=== PATIENT | female | born 1940 | race Caucasian/White ===

== ENCOUNTER 2021-04-29 12:00 | Emergency (ER) | payer MEDICARE, OTHER, SELFPAY ==
[2021-04-29] VITALS (13 sets, daily range): BP systolic 187–198; BP diastolic 69–75; PULSE 60–70; RESP 13–21; TEMP 37.2; O2SAT 90–94
--- NOTE | ~2021-04-29 | XR_ITS ---
XR chest 2V 04/29/2021 13:09 Indication: Generalized weakness. Procedure: AP and lateral views of the chest Comparison: No prior studies for comparison. Findings: There is bibasilar airspace disease. Borderline heart size. No edema or pneumothorax. No ac tangirnaq osseous abnormality. Impression: 1: Bibasilar airspace disease may represent atelectasis or developing pneumonia. Reviewed, dictated and finalized at location A. Impression: 1: Bibasilar airspace disease may represent atelectasis or developing pneumonia .
--- NOTE | 2021-04-29 12:27 | PC.NURSE ---
pt up to bedside commode. pt daughter at bedside adamant that pt able to sit up for meals and toileting per eye surgeon.
--- NOTE | 2021-04-29 12:40 | ED.WEAKNESS ---
HPI - Weakness General Chief complaint: Weakness Stated complaint: multiple c/o Time Seen by Provider: 04/29/21 12:05 History of Present Illness HPI Narrative: Patient presents with weakness so she had a procedure done 2 days ago has not been taking any of her meds due to surgery. Reports she has been feeling weak since last night. She just does not have energy. Patient also reports she has eye pain but that has been present since her surgery. She reports she is not had much of an appetite over the past couple days denies fevers. She does report she has been peeing more frequently but denies pain with urination. She denies any nausea or vomiting she does reports diminished appetite. She denies any diarrhea. Denies any focal areas of pain other than her eye. Related Data Home Medications Medication Instructions Recorded Confirmed aspirin 81 mg tablet,delayed 81 mg PO DAILY 01/13/21 01/13/21 release atorvastatin 40 mg tablet 40 mg PO DAILY 01/13/21 01/13/21 diclofenac sodium 75 mg 75 mg PO BID 01/13/21 01/13/21 tablet,delayed release losartan 100 mg tablet 100 mg PO DAILY 01/13/21 01/13/21 omeprazole 20 mg tablet,delayed 20 mg PO DAILY 01/13/21 01/13/21 release sertraline 100 mg tablet 100 mg PO DAILY 01/13/21 01/13/21 sitagliptin 100 mg tablet 100 mg PO DAILY 01/13/21 01/13/21 Allergies Allergy/AdvReac Type Severity Reaction Status Date / Time Sulfa (Sulfonamide Allergy Unknown Unknown Verified 04/29/21 12:14 Antibiotics) sulfanilamide Allergy Unknown Unknown Verified 04/29/21 12:14 Review of Systems Review of Systems: CONSTITUTIONAL: Denies fever, chills, or sweats. EYES: Denies visual changes, redness, or discharge. ENT: Denies rhinorrhea, congestion, sore throat, or otalgia. CARDIOVASCULAR: Denies chest pain, palpitations, or edema. RESPIRATORY: Denies cough or dyspnea. GASTROINTESTINAL: Denies abdominal pain, nausea, vomiting, or diarrhea. GENITOURINARY: Denies dysuria or hematuria. SKIN: Denies rash or itching. MUSCULOSKELETAL: Denies back pain, joint pain, or myalgia. NEUROLOGIC: Denies headache, numbness, dizziness, or focal weakness. PSYCHIATRIC: Denies anxiety or depression. 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 Primary osteoarthritis, unspecified site Family History Family History Father Family history of malignant neoplasm of stomach Family history of diabetes mellitus in first degree relative Mother Family history of malignant neoplasm of ovary Social History Social History Smoking status: Former smoker Tobacco type: cigarettes Second hand tobacco smoke exposure: No Alcohol intake: never Substance use: never Substance use type: does not use Gender identity (if verbalized by the patient): Female Sexual Orientation (if Verbalized by the Patient): Straight or Heterosexual Exam Narrative: GENERAL: Well-appearing, well-nourished, and in no acute distress. HEAD: Normocephalic, atraumatic. EYES: PERRLA and EOMI. ENT: Nares clear, no rhinorrhea or epistaxis. Mucous membranes moist. NECK: Supple. No masses. No JVD ABDOMEN: mild diffuse tenderness, Soft, nondistended. EXTREMITIES: Normal range of motion. No edema. SKIN: Warm, dry, no rash. NEURO: No focal deficits. Alert and oriented x3. PSYCH: Normal mood and affect. Course Reevaluation(s) Reevaluation #1: Patient resting comfortably results and plan reviewed with patient and family. Patient family comfortable with outpatient plan. Date: 04/29/21 Time: 15:51 Vital Signs Vital signs: Vital Signs Temperature
[2021-04-29] MEDS: SODIUM CHLORIDE 0.9% IV 1,000 ML 999 ML IV CONT (12:43)
[2021-04-29] MEDS: ONDANSETRON INJ 4 MG/2 ML VIAL IV PUSH (12:44)
[2021-04-29 13:06] LABS: Basophils Percent Auto 0.3 % (0.2-1.2); Eosinophils Percent Auto 0.1 % (0-4.4); Hematocrit 39.7 % (37.0-47.0); Hemoglobin 13.5 g/dL (12.0-15.0); Immature Granulocyte Absolute 0.07 K/mm3 (0.00-0.031); Immature Granulocyte Percent A 0.6 % (0-0.5); Lymphocytes Absolute Auto 0.66 K/mm3 (0.9-3.2); Lymphocytes Percent Auto 5.6 % (18.3-44.2); Mean Corpuscular Hemoglobin 30.6 pg (26-34); Mean Platelet Volume 10.3 fl (7.4-10.4); Monocytes Absolute Auto 0.4 K/mm3 (0.1-0.6); Monocytes Percent Auto 3.1 % (2.6-8.5); Neutrophils Absolute Auto 10.7 K/mm3 (1.3-6.7); Neutrophils Percent Auto 90.3 % (45.5-73.1); Platelet Count Result 187 k/mm3 (150-375); Red Blood Count 4.41 M/mm3 (4.2-5.4); Red Cell Distribution Width 12.4 % (11.5-14.5); White Blood Count 11.9 K/mm3 (4.5-10.0)
[2021-04-29 13:16] LABS: Anion Gap 12 mmol/L (8-16); Blood Urea Nitrogen 9 mg/dL (7-17); Calcium 9.2 mg/dL (8.4-10.2); Carbon Dioxide 27 mmol/L (22-30); Chloride 100 mmol/L (98-107); Estimated CRCL calculation 47 ml/min; Estimated Glomerular Filt Rate 60; Glucose 243 mg/dL (65-110); Sodium 139 mmol/L (137-145)
[2021-04-29 13:22] LABS: Lactic Acid Reflex 2.4 mmol/L (0.7-2.1)
[2021-04-29 13:28] LABS: Add Urine Microscopic? YES; Appearance Urine Clear (Clear); Bacteria Urine Trace /hpf; Bilirubin Urine Negative (Negative); Blood Urine Negative (Negative); Color Urine Yellow (Yellow); Glucose Urine UA 3+ mg/dL (Negative); Ketones Urine Negative (Negative); Leukocyte Esterase Ur Negative LEU/UL (Negative); Mucus Urine Rare /lpf; Nitrate Urine Negative (Negative); Protein Urine 2+ mg/dL (Negative); RBC Urine 0-2 /hpf (0-2); Specific Grav Ur 1.022 (1.001-1.035); Squamous Epithelial Cell Urine Few /hpf (Few); Urobilinogen Urine Negative mg/dL (<2.0); WBC Urine 0-3 /hpf
[2021-04-29 15:36] LABS: Lactic Acid Reflex 1.7 mmol/L (0.7-2.1)
[2021-04-29 16:03] LABS: Reflex Lactic Acid Yes or No Add Lactic
== END 2021-04-29 16:39 | disposition home or self-care (01) ==
PROVIDERS: Emergency Provider Emergency Medicine; PCP Family Medicine
DX: J18.9 Pneumonia, unspecified organism (principal); R53.1 Weakness; M54.2 Cervicalgia; K21.9 Gastro-esophageal reflux disease without esophagitis; E11.22 Type 2 diabetes mellitus with diabetic chronic kidney disease; N18.30 Chronic kidney disease, stage 3 unspecified; M19.90 Unspecified osteoarthritis, unspecified site
CPT/HCPCS: 36415; 71046; 80048; 81001; 83605; 85025; 96361; 96365; 96375; 99284; J0131; J1956; J2405; J7030

== ENCOUNTER → 2022-01-26 15:32 | Outpatient (CLI) | payer MEDICARE, OTHER, SELFPAY ==
--- NOTE | ~2022-01-26 | XR_ITS ---
EXAMINATION: XR chest 2V Exam Date/Time: 01/26/2022 15:49 CDT HISTORY: R06.00 - Dyspnea, unspecified Comparison: 04/29/2021. RESULT: Lines, tubes, and devices: None. Lungs and pleura: Senescent change. Bibasilar linear scar/atelectasis. Cardiomediastinal silhouette: Stable cardiomediastinal silhouette including aortic arch calcificatio n. Other: No acute osseous or upper abdominal finding. IMPRESSION: No acute cardiopulmonary process. Reviewed, dictated and finalized at location K.
== END ==
PROVIDERS: PCP Family Medicine; Visit Provider Family Medicine
DX: R06.00 Dyspnea, unspecified (principal)
CPT/HCPCS: 71046

== ENCOUNTER → 2022-02-03 13:35 | Outpatient (CLI) | payer MEDICARE, OTHER, SELFPAY ==
--- NOTE | ~2022-02-03 | XR_ITS ---
XR hip BI 2V w AP pelvis DATE: 02/03/2022 14:11 INDICATION: Right hip pain TECHNIQUE: AP pelvis. AP and lateral views of each hip. COMPARISON: 07/05/2018 pelvis and right hip FINDINGS: There is osteopenia. Normal alignment at the pubic symphysis and sacroiliac joints. No fracture or dislocation, avascular necrosis or bone destruction of either hip is evident. Mild gerry ateral hip osteoarthritis. Degenerative disc disease at L4-5 and probably L5-S1. IMPRESSION: Osteopenia Mild bilateral hip osteoarthritis Reviewed, dictated and finalized at location B.
== END ==
PROVIDERS: PCP Family Medicine; Visit Provider Family Medicine
DX: M16.0 Bilateral primary osteoarthritis of hip (principal); M85.851 Other specified disorders of bone density and structure, right thigh; M85.852 Other specified disorders of bone density and structure, left thigh
CPT/HCPCS: 73521

== ENCOUNTER 2022-03-13 09:45 | Outpatient (CLI) | payer MEDICARE, OTHER, SELFPAY ==
--- NOTE | ~2022-03-13 | US_ITS ---
EXAMINATION: US abdomen complete DATE: 03/13/2022 10:27 INDICATION: Abdominal distention. TECHNIQUE: Multiple grayscale and Doppler ultrasound images of the abdomen were obtained. COMPARISON: None FINDINGS: The pancreatic head and body are normal in appearance. The pancreatic tail is not visualized. Mildly prominent main pancreatic duct which measures 2.5-3 mm in the body of the pancreas. Liver has normal contour, with a smooth surface. There is increased parenchymal echogenicity and coarsened echotextur e consistent with diffuse hepatic steatosis. No liver lesion identified. No intrahepatic biliary sri t dilation suspected. Portal venous flow was seen in the hepatopetal, normal direction and has normal Doppler waveform. The gallbladder is normal in appearance. There is no cholelithiasis. The common b ile duct measures 5 mm, which is normal. Sonographic Almanza sign was reported as negative by the sono grapher. There is normal renal contour and echogenicity bilaterally. The right kidney measures 9.1 x 4.4 x 4.1 cm and the left 9.7 x 4.2 x 5.2 cm. There are no focal renal lesions identified. There is no hydronephrosis. The inferior vena cava and aorta are normal. IMPRESSION: 1. Diffuse hepatic steatosis. 2. Normal-appearing pancreas but with borderline dilation of the main pancreatic duct. Correlate with amylase and lipase levels. No evident cholelithiasis or biliary ductal dilation. Reviewed, dictated and finalized at location A. IMPRESSION: 1. Diffuse hepatic steatosis. 2. Normal-appearing pancreas but with borderline dilation of the main pancreati c duct. Correlate with amylase and lipase levels. No evident cholelithiasis or biliary ductal dilation.
== END 2022-03-13 09:46 | disposition home or self-care (01) ==
LOC: ANHIMG 09:55
PROVIDERS: PCP Family Medicine; Visit Provider Physician Assistant
DX: R14.0 Abdominal distension (gaseous) (principal); K76.0 Fatty (change of) liver, not elsewhere classified
CPT/HCPCS: 76700

== ENCOUNTER → 2022-04-30 10:52 | Outpatient (CLI) | payer MEDICARE, SELFPAY ==
--- NOTE | ~2022-04-30 | DEXA_ITS ---
Bone Density Report Name: NARCISO BLACKWOOD Age: 81 Sex: Female Ethnicity: White Date of : 1940 Indication: osteopenia; height loss; hysterectomy; postmenopausal Referring Provider: Parker Mariee Study: Bone densitometry was performed. Exam Date: April 30, 2022 Accession number: [id number] Bone Density: Region BMD T-score Z-score Classification AP Spine (L1-L4) 1.164 1.1 3.9 Normal Femoral Neck (Left) 0.603 -2.2 0.2 Osteopenia Total Hip (Left) 0.754 -1.5 0.7 Osteopenia Femoral Neck (Right) 0.651 -1.8 0.6 Osteopenia Total Hip (Right) 0.761 -1.5 0.7 Osteopenia Total Hip Mean 0.758 -1.5 0.7 Osteopenia World Health Organization criteria for BMD impression classify patients as: Normal (T-score at or above -1.0), Osteopenia (T-score between -1.0 and -2.5), or Osteoporosis (T-score at or below -2.5). 10-year Fracture Risk(1): Major Osteoporotic Fracture 16% Hip Fracture 4.9% Reported Risk Factors: [place] (), Neck BMD=0.603, BMI=32.1 (1) FRAX(R) Version 3.08. Fracture probability calculated for an untreated patient. Fracture probability may be lower if the patient has received treatment. Previous Exams: Region Exam Age BMD T-score BMD Change BMD Change Date g/cm2 vs Baseline vs Previous AP Spine(L1-L4) 04/30/2022 81 1.164 1.1 0.213* 0.096* 05/03/2014 73 1.068 0.2 0.118* 0.118* 07/01/2004 64 0.951 -0.9 Total Hip(Left) 04/30/2022 81 0.754 -1.5 -0.079* -0.051* 05/03/2014 73 0.805 -1.1 -0.028* -0.028* 07/01/2004 64 0.833 -0.9 Total Hip(Right) 04/30/2022 81 0.761 -1.5 -0.120* -0.062* 05/03/2014 73 0.824 -1.0 -0.058* -0.058* 07/01/2004 64 0.882 -0.5 *Denotes significance at 95% confidence level, LSC for AP Spine = 0.022 g/cm2, LSC for Total Hip = 0.027 g/cm2 Clinical Information Provided by Patient: Has the following medical conditions: Hysterectomy Patient maximum height was 66 Menopause Age: 49 No regular weight bearing exercise Drinks caffeinated beverages Onset of menses at age 12 Number of children 3 Impression: The patient has low bone mass, based on the Left Femoral Neck T-score. The patient has an estimated ten-year risk of hip fracture of 4.9% and an estimated ten-year risk of major fracture of 16%, based on the WHO FRAX algorithm. The BMD for the Total Hip(Left) decreased,
== END ==
PROVIDERS: PCP Family Medicine; Visit Provider Family Medicine
DX: Z78.0 Asymptomatic menopausal state (principal); M85.852 Other specified disorders of bone density and structure, left thigh; M85.851 Other specified disorders of bone density and structure, right thigh
CPT/HCPCS: 77080

== ENCOUNTER 2022-07-16 11:24 | Outpatient (CLI) | payer MEDICARE, SELFPAY ==
--- NOTE | ~2022-07-16 | XR_ITS ---
XR_CERV2-3V_CR DATE: 07/16/2022 11:38 INDICATION: Neck pain for 3 days TECHNIQUE: AP, open-mouth, lateral and swimmer views COMPARISON: 03/02/2009 cervical spine FINDINGS: There is osteopenia. There is mild levoscoliosis of the cervical and thoracic spine. C1 and C2 are normally aligned and the odontoid process is intact. There is mild anterolisthesis at C2-3. Moderately severe degenerative disc disease at C3-4 and C4-5. Disease at C5-6 and C6-7. No fracture or dislocation or locked facet or prevertebral soft tissue swelling is detected. There is degenerative change at the apophyseal and uncovertebral joints. IMPRESSION: Osteopenia Mild thoracic levoscoliosis Severe cervical spondylosis Reviewed, dictated and finalized at Location A. Reviewed, dictated and finalized at location B. G TECHNICIAN
== END 2022-07-16 11:25 ==
PROVIDERS: PCP Family Medicine; Visit Provider Physician Assistant
DX: M54.2 Cervicalgia (principal); M85.88 Other specified disorders of bone density and structure, other site; M41.9 Scoliosis, unspecified; M47.812 Spondylosis without myelopathy or radiculopathy, cervical region
CPT/HCPCS: 72040

== ENCOUNTER 2023-02-01 13:45 | Emergency (ER) | payer MEDICARE, OTHER, SELFPAY ==
--- NOTE | 2023-02-01 13:57 | ED.EAR ---
HPI - Ear Problem General Chief complaint: Ear Stated complaint: bilateral ear discomfort Time Seen by Provider: 02/01/23 13:57 Source: patient Mode of arrival: ambulatory Limitations: no limitations History of Present Illness HPI Narrative: Patient is an 82-year-old female that presents with bilateral cerumen impactions. Patient was seen by spring coverer for her routine hearing aid check and was told she needs both ears cleaned out. Denies any decreased hearing that she notices, ringing in ears, or dizziness. MD Complaint: ear pain Related Data Home Medications Medication Instructions Recorded Confirmed aspirin 81 mg tablet,delayed 81 mg PO DAILY 01/13/21 02/01/23 release Allergies Allergy/AdvReac Type Severity Reaction Status Date / Time Sulfa (Sulfonamide Allergy Unknown Unknown Verified 02/01/23 14:10 Antibiotics) sulfanilamide Allergy Unknown Unknown Verified 02/01/23 14:10 Review of Systems Review of Systems: All systems reviewed & are unremarkable except as noted in HPI and below Constitutional: Constitutional: Denies body ache(s), Denies chills, Denies fever(s), Denies headache(s) and Denies malaise Eyes: Eyes: Denies blurry vision, Denies eye discharge and Denies irritation ENT: Denies otalgia, Denies headache(s), Denies nasal congestion, Denies nasal discharge, Denies sore throat and Reports other (Cerumen impaction) Cardiovascular: Cardiovascular: Denies chest pain, Denies edema, Denies palpitations and Denies dyspnea on exertion Respiratory: Respiratory: Denies cough and Denies dyspnea on exertion Gastrointestinal: Gastrointestinal: Denies abdominal pain, Denies diarrhea, Denies nausea and Denies vomiting Musculoskeletal: Musculoskeletal: Denies back pain, Denies arthralgias and Denies muscle weakness Integumentary/Breasts: Skin/Breast: Denies pruritus and Denies rash Neurologic: Denies headache(s) Psychiatric: Psychiatric: Reports no additional psychiatric complaints Endocrine: Endocrine: Denies palpitations PMFSH Past Medical History Medical History Chronic GERD Chronic kidney disease, stage III (moderate) DM renal manif type II LILIANE (generalized anxiety disorder) HLD (hyperlipidemia) 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 Insomnia Primary osteoarthritis, unspecified site Family History Family History Father Family history of malignant neoplasm of stomach Family history of diabetes mellitus in first degree relative Mother Family history of malignant neoplasm of ovary Social History Social History Smoking status: Former smoker Tobacco type: cigarettes Second hand tobacco smoke exposure: No Alcohol intake: never Substance use: never Substance use type: does not use Living arrangements: with family Occupation/Education: retired Gender identity (if verbalized by the patient): Female Sexual Orientation (if Verbalized by the Patient): Straight or Heterosexual Comments At time of signature, agree with nursing past medical, surgical, social and family history. There is no relevant family history pertinent to the presenting complaint? Exam Const: General: cooperative, healthy appearing, no acute distress and well nourished Nutritional Appearance: well nourished Orientation/consciousness: patient oriented x3 Limitations: no limitations HENMT: Head: normal to inspection, normocephalic and atraumatic Ears: hearing grossly normal bilaterally, EAC's normal, no periauricular adenopathy and TM abnormal obstructed by cerumen bilateral Face/Nose/Sinus: Normal external nose present, Normal nares present, Normal nasal mucous membranes and turbinates present, No nasal discharge present, normal facial exam and sinuses nontender Face and sinus: normal facial exam and sinuses nontender Mouth: Yes Normal oral and palatal mucosa
[2023-02-01 14:14] VITALS: BP 144/66; PULSE 78; RESP 20; TEMP 36.6; O2SAT 96
== END 2023-02-01 15:38 | disposition home or self-care (01) ==
PROVIDERS: Emergency Provider Nurse Practitioner Family; PCP Family Medicine
DX: H61.23 Impacted cerumen, bilateral (principal); Z87.891 Personal history of nicotine dependence; K21.9 Gastro-esophageal reflux disease without esophagitis; E11.22 Type 2 diabetes mellitus with diabetic chronic kidney disease; N18.30 Chronic kidney disease, stage 3 unspecified; E78.5 Hyperlipidemia, unspecified; Z79.82 Long term (current) use of aspirin
CPT/HCPCS: 69210; 99212; G0463

== ENCOUNTER 2023-09-08 14:05 | Outpatient (CLI) | payer MEDICARE, OTHER, SELFPAY ==
--- NOTE | ~2023-09-08 | CT_ITS ---
EXAMINATION: CT sinus wo con DATE: 09/08/2023 14:40 INDICATION: No signs of smell. Deviated septum. TECHNIQUE: Computed tomography (CT) of the paranasal sinuses was performed without contrast. Iterativ e reconstruction technique was employed. Exam dose: 319.20 mGy-cm total exam DLP. COMPARISON: None FINDINGS: There is rightward bowing of the nasal septum. Mild intralamellar cell of left middle nasal turbinate is mild asymmetric soft tissue swelling of the left middle and inferior nasal turbinates. The ostiomeatal units are patent bilaterally. Normal development and aeration of the paranasal sinuses and mastoid air cells. Middle and inner ear apparatus appear normal bilaterally. IMPRESSION: Rightward bowing of nasal septum Mild intralamellar cell of left middle nasal turbinate and mild asymmetric soft tissue swelling of le ft middle and inferior nasal turbinates Patent ostiomeatal units, paranasal sinuses and mastoid air cells Reviewed, dictated and finalized at Location A. Reviewed, dictated and finalized at location B. ESSIONS MANAGER IMPRESSION: Rightward bowing of nasal septum Mild intralamellar cell of left middle nasal turbinate and mild asymmetric soft tissue swelling of left middle and inferior nasal turbinates Patent ostiomeatal units, paranasal sinuses and mastoid air cells
== END 2023-09-08 14:06 | disposition home or self-care (01) ==
LOC: ANHIMG 14:11
PROVIDERS: PCP Family Medicine; Visit Provider Otolaryngology
DX: J34.2 Deviated nasal septum (principal)
CPT/HCPCS: 70486

== ENCOUNTER 2023-09-17 12:42 | Emergency (ER) | payer MEDICARE, OTHER, SELFPAY ==
[2023-09-17] VITALS (7 sets, daily range): BP systolic 146–160; BP diastolic 62–80; PULSE 77–89; RESP 18–28; TEMP 36.3–36.4; O2SAT 93–100
--- NOTE | ~2023-09-17 | XR_ITS ---
Clinical Indication: Cough PA and lateral views of the chest: Comparison: 01/26/2022 Findings: Possible minimal bibasilar interstitial disease. No consolidation or pleural effusion other pierre. Cardiomediastinal silhouette is within normal limits. Bones and soft tissues are unremarkable. Impression: Possible chronic mild bibasilar pulmonary interstitial disease. Reviewed, dictated and finalized at location . OR TEST ANALYST Impression: Possible chronic mild bibasilar pulmonary interstitial disease.
--- NOTE | 2023-09-17 12:52 | ECG_ITS ---
Measurements Intervals [place] Rate: 85 P: 26 OK: 132 QRS: 52 QRSD: 90 T: 42 QT: 363 QTc: 432 Interpretive Statements SINUS RHYTHM NONSPECIFIC ST SEGMENT ABNORMALITY ABNORMAL ECG NO PREVIOUS ECG AVAILABLE FOR COMPARISON Electronically Signed On 09-17-2023 15:39:21 WATER RESOURCE ENGINEER by Eric Morris M.D.
[2023-09-17 13:11] LABS: Basophils Absolute Auto 0.1 K/mm3 (0.0-0.1); Basophils Percent Auto 0.5 % (0.2-1.2); Eosinophils Absolute Auto 0.4 K/mm3 (0-0.3); Eosinophils Percent Auto 3.7 % (0-4.4); Hematocrit 42.5 % (37.0-47.0); Hemoglobin 14.1 g/dL (12.0-15.0); Immature Granulocyte Absolute 0.04 K/mm3 (0.00-0.031); Immature Granulocyte Percent A 0.4 % (0-0.5); Lymphocytes Absolute Auto 0.77 K/mm3 (0.9-3.2); Lymphocytes Percent Auto 7.7 % (18.3-44.2); Mean Corpuscular HGB Conc 33.2 g/dl (32-36); Mean Corpuscular Hemoglobin 29.6 pg (26-34); Mean Corpuscular Volume 89.1 fl (80-100); Mean Platelet Volume 11.4 fl (7.4-10.4); Monocytes Absolute Auto 0.5 K/mm3 (0.1-0.6); Monocytes Percent Auto 4.7 % (2.6-8.5); Neutrophils Absolute Auto 8.3 K/mm3 (1.3-6.7); Platelet Count Result 257 k/mm3 (150-375); Red Blood Count 4.77 M/mm3 (4.2-5.4); Red Cell Distribution Width 11.9 % (11.5-14.5)
[2023-09-17 13:24] LABS: Alanine Aminotransferase 15 U/L (6-35); Albumin Level 4.4 g/dL (3.5-5.1); Alkaline Phosphatase 68 U/L (38-126); Anion Gap 7 mmol/L (8-16); Aspartate Amino Transferase 27 U/L (14-36); Bilirubin,Total 0.9 mg/dL (0.2-1.3); Blood Urea Nitrogen 16 mg/dL (7-17); Calcium 9.3 mg/dL (8.4-10.2); Carbon Dioxide 28 mmol/L (22-30); Chloride 107 mmol/L (98-107); Estimated CRCL calculation 33 ml/min; Estimated Glomerular Filt Rate 47; Glucose 209 mg/dL (65-110); Potassium 3.6 mmol/L (3.4-5.0); Sodium 142 mmol/L (137-145)
[2023-09-17 13:58] LABS: Magnesium 1.8 mg/dL (1.6-2.3)
[2023-09-17 14:10] LABS: Troponin I < 0.012 ng/mL (0.000-0.034)
--- NOTE | 2023-09-17 14:27 | ED.SOB ---
HPI - SOB/Dyspnea General Chief Complaint: Shortness of Breath/Dyspnea Stated Complaint: SOB Time Seen by Provider: 09/17/23 12:58 Source: patient and family Limitations: no limitations History of Present Illness HPI Narrative: Patient is an 83-year-old female presents to the emergency department complaining of difficulty breathing. Patient states it woke her up this morning at 6:00 a.m. and persisted until about noon or 1:00 p.m. and has since resolved. Patient notes that when she went to bed last night she was feeling well and denies any recent illness or injuries. Patient denies fever, cough, chest pain, history of blood clots, unilateral lower extremity swelling, diarrhea, melena, hematochezia, urinary discomfort, abdominal pain, nausea, vomiting, numbness, weakness, nasal congestion, sore throat. Patient admits to a mild discomfort in her right mid back described as a pressure that was brief in duration earlier today and has since resolved she did not take anything for the discomfort a did not notice any making it better or worse. Patient is to history of frequent UTIs and last was on antibiotics approximately 6 weeks ago. Related Data Home Medications Medication Instructions Recorded Confirmed aspirin 81 mg tablet,delayed 81 mg PO DAILY 01/13/21 09/13/23 release sitagliptin phosphate 100 mg 100 mg PO 09/17/23 tablet (Januvia) Allergies Allergy/AdvReac Type Severity Reaction Status Date / Time Sulfa (Sulfonamide Allergy Unknown Unknown Verified 09/13/23 13:58 Antibiotics) sulfanilamide Allergy Unknown Unknown Verified 09/13/23 13:58 Review of Systems Review of Systems: A 10 system review of systems was completed on the patient and is negative except for what is stated in the HPI. Nursing and ancillary documentation was reviewed. 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 Insomnia Primary osteoarthritis, unspecified site Family History Family History Father Family history of malignant neoplasm of stomach Family history of diabetes mellitus in first degree relative Mother Family history of malignant neoplasm of ovary Social History Social History (Updated 09/13/23 @ 13:59 by Joycelyn Valle) Smoking packs per day: 1 Smoking cigarettes per day: 20.0 Smoking status: Former smoker Tobacco type: cigarettes Second hand tobacco smoke exposure: No Alcohol intake: never Substance use: never Substance use type: does not use Do You Feel Safe in your Home?: Yes Lack of Transportation: No Lack of Food: Never True Current Housing: I Have Housing Concerned About Future Housing: No Difficulty Paying Gas/Electric Bills: No Difficulty Paying for Meds: No Currently Unemployed: YES Education: Don't Know Difficulty w/ Childcare or Family Care: No Living arrangements: with family Occupation/Education: retired Gender identity (if verbalized by the patient): Female Sexual Orientation (if Verbalized by the Patient): Straight or Heterosexual Comments At time of signature, I have reviewed and agree with nursing past medical, surgical, social and family history unless otherwise noted. Please see the nursing chart for further information. There is no relevant family history pertinent to the presenting complaint. Exam Narrative: CONST: No acute distress. Well nourished. HENMT: Head is normocephalic and atraumatic. Moist mucous membranes. No posterior oropharynx erythema. EYES: No conjunctival icterus, injection, or pallor. PERRL. NECK: No meningeal signs. No JVD. RESP: Able to speak in full sentences. Normal respiratory effort. CTAB. CARDIO: Regular rate. Regular rhythm. 2+ DP and radia
[2023-09-17 14:38] LABS: Influenza A QL RT-PCR Negative (Negative); Influenza B QL RT-PCR Negative (Negative); RSV RNA, RT-PCR Negative (Negative); SARS-CoV-2 RNA PCR Negative (Negative)
[2023-09-17 15:11] LABS: INR 1.1; Prothrombin Time 14.4 Seconds (11.1-14.7)
[2023-09-17 15:12] LABS: Partial Thromboplastin Time 29.1 SECONDS (22.3-36.8)
[2023-09-17 15:15] LABS: D Dimer 0.76 ug/mL (<0.48)
[2023-09-17 15:37] LABS: Appearance Urine Clear (Clear); Bacteria Urine Rare /hpf; Bilirubin Urine Negative (Negative); Blood Urine Negative (Negative); Color Urine Yellow (Yellow); Glucose Urine UA Negative (Negative); Ketones Urine Negative (Negative); Leukocyte Esterase Ur Trace LEU/UL (Negative); Nitrate Urine Negative (Negative); Non Pathogenic Casts 0-2; Protein Urine Negative (Negative); RBC Urine 0-2 /hpf (0-2); Specific Grav Ur 1.018 (1.001-1.035); Squamous Epithelial Cell Urine Moderate /hpf (Few); pH Urine 6.5 (5.0-9.0)
[2023-09-17 15:44] LABS: Add Urine Microscopic? YES
[2023-09-17 16:17] LABS: NT Pro B Type Natriuretic Pept 1340 pg/mL (19.9-100)
[2023-09-17 16:19] LABS: Troponin I < 0.012 ng/mL (0.000-0.034)
== END 2023-09-17 17:24 | disposition home or self-care (01) ==
PROVIDERS: Emergency Provider Student in an Organized Health Care Education/Training Program; PCP Family Medicine
DX: N39.0 Urinary tract infection, site not specified (principal); R06.00 Dyspnea, unspecified; R10.9 Unspecified abdominal pain; Z20.822 Contact with and (suspected) exposure to COVID-19; E11.22 Type 2 diabetes mellitus with diabetic chronic kidney disease; I12.9 Hypertensive chronic kidney disease with stage 1 through stage 4 chronic kidney disease, or unspecified chronic kidney disease; N18.30 Chronic kidney disease, stage 3 unspecified; E78.5 Hyperlipidemia, unspecified; M19.90 Unspecified osteoarthritis, unspecified site; K21.9 Gastro-esophageal reflux disease without esophagitis; Z87.891 Personal history of nicotine dependence; Z79.82 Long term (current) use of aspirin; Z79.84 Long term (current) use of oral hypoglycemic drugs
CPT/HCPCS: 36415; 71046; 80053; 81001; 83735; 83880; 84443; 84484; 85025; 85380; 85610; 85730; 87086; 87637; 93005; 99284

== ENCOUNTER 2023-10-19 07:55 | Outpatient (CLI) | payer MEDICARE, OTHER, SELFPAY ==
--- NOTE | ~2023-10-19 | NM_ITS ---
EXAMINATION: NM jb stress w perfusion DATE: 10/19/2023 10:04 INDICATION: Other chest pain. TECHNIQUE: Rest images were obtained following intravenous administration of 10.6 mCi Tc99m tetrofosm in (Myoview). The patient was infused intravenously with Lexiscan (regadenoson). Then, 34.3 mCi Tc99m tetrofosmin (Myoview) was administered intravenously, and stress images were obtained. Data was aaron nstructed into short axis and horizontal and vertical long axis SPECT images. Gated SPECT images were also obtained. COMPARISON: None. FINDINGS: There is no definite reversible or fixed perfusion abnormality to suggest ischemia or infar ction. There is no segmental wall motion abnormality. Left ventricular ejection fraction measures > 70%. IMPRESSION: 1. No definite ischemia or infarct. 2. Normal left ventricular ejection fraction measuring > 70%. Reviewed, dictated and finalized at location A.
--- NOTE | 2023-10-19 08:34 | EST_ITS ---
Patient Info Name: Leighann Vicente Winning Age: 83 years : 1940 Gender: Female Ht: 63 in Wt: 167 lbs BSA: 1.86 m2 HR: 60 bpm BP: 159 / 82 mmHg Heart Rhythm: Sinus Rhythm Exam Date: 10/19/2023 9:07 AM Exam Location: [facility] Patient Status: Preadmit Admit Date: 10/19/2023 Staff Ordering Physician: Salud Poon PA-C Attending Provider: Salud Poon PA-C Exercise Technologist: Jen Nicholson CT Exercise Physician: Meño Mo DO Exam Type: CA stress jb w NM Study Info Indications R06.02 - Shortness of breath R07.89 - Other chest pain A regadenoson stress test was performed. Summary 1. 1. Negative lexiscan stress test for ischemic ST changes by ECG criteria. 2. 2. Baseline hypertension. 3. 3. Nuclear scan to follow and will be reported separately. Please correlate with it. 4. 4. Patient informed of the above results. Protocol: Lexiscan Stress ECG Details Stage: REST Duration (min): 2 min : 1 sec HR (bpm): 61 SBP (mmHg): 159 DBP (mmHg): 82 Stage: REST Duration (min): 5 min : 11 sec HR (bpm): 64 SBP (mmHg): 159 DBP (mmHg): 82 Stage: STAGE 1 Duration (min): 0 min : 59 sec HR (bpm): 75 SBP (mmHg): 175 DBP (mmHg): 63 Stage: RECOVERY Duration (min): 1 min : 0 sec HR (bpm): 88 SBP (mmHg): 175 DBP (mmHg): 63 Stage: RECOVERY Duration (min): 2 min : 0 sec HR (bpm): 83 SBP (mmHg): 175 DBP (mmHg): 63 Stage: RECOVERY Duration (min): 3 min : 0 sec HR (bpm): 83 SBP (mmHg): 175 DBP (mmHg): 63 Stage: RECOVERY Duration (min): 4 min : 0 sec HR (bpm): 82 SBP (mmHg): 174 DBP (mmHg): 67 Stage: RECOVERY Duration (min): 5 min : 0 sec HR (bpm): 86 SBP (mmHg): 182 DBP (mmHg): 72 Stage: RECOVERY Duration (min): 5 min : 5 sec HR (bpm): 87 SBP (mmHg): 182 DBP (mmHg): 72 Rest HR: 64 bpm Peak HR: 90 bpm Rest Sys BP: 159 mmHg Peak Sys BP: 182 mmHg Max Pred HR: 136 bpm % Max Pred HR: 66 % Target HR: 116 bpm Max RPP: 16,380 bpm*mmHg Termination Reason: Completed protocol Cardiac Symptoms: Shortness of breath Total Time: 1 min : 0 sec Rest Lazo BP: 82 mmHg Peak Lazo BP: 72 mmHg Total Dose: 0.4 mg Resting ECG Sinus rhythm. Stress ECG No ST changes. Arrhythmias None. Report Signatures
== END 2023-10-19 07:56 | disposition home or self-care (01) ==
PROVIDERS: PCP Family Medicine; Visit Provider Physician Assistant
DX: R07.89 Other chest pain (principal); R06.09 Other forms of dyspnea
CPT/HCPCS: 78452; 93017; A9502; J2785

== ENCOUNTER 2023-11-10 12:42 | Outpatient (CLI) | payer MEDICARE, OTHER, SELFPAY ==
--- NOTE | ~2023-11-10 | CT_ITS ---
EXAMINATION: CTA chest PE protocol DATE: 11/10/2023 13:22 INDICATION: Dyspnea. TECHNIQUE: Computed tomography angiography (CTA) of the chest was performed with 100 mL Omnipaque-350 intravenous contrast timed to evaluate the pulmonary arteries. Coronal maximum intensity projection 3D-reconstructions were created by the technologist. Automated exposure control and iterative reconst ruction technique were employed. The dose-length product was 316.03 mGy-cm. COMPARISON: Chest 2 views 09/17/23 FINDINGS: There is mild emphysema. There is peripheral septal thickening in the lungs with a lower kirstin ng predominance. No bronchiectasis or honeycombing. No pleural effusion. The heart size is normal. No pericardial effusion. There is no pulmonary embolus. There is severe cervical, thoracic, and lumbar spondylosis. IMPRESSION: 1. No pulmonary embolus. 2. Mild emphysema. 3. Mild chronic interstitial lung disease. Reviewed, dictated and finalized at location A.
[2023-11-10 13:07] LABS: Estimated Glomerular Filt Rate 36
== END 2023-11-10 12:43 ==
LOC: MICIMG 12:45
PROVIDERS: PCP Family Medicine; Visit Provider Family Medicine
DX: R06.09 Other forms of dyspnea (principal); R79.89 Other specified abnormal findings of blood chemistry; J43.9 Emphysema, unspecified; J84.9 Interstitial pulmonary disease, unspecified
CPT/HCPCS: 71275; Q9967

== ENCOUNTER 2023-11-18 14:37 | Outpatient (CLI) | payer MEDICARE, OTHER, SELFPAY ==
--- NOTE | ~2023-11-18 | MR_ITS ---
EXAMINATION: MR lumbar spine wo con DATE: 11/18/2023 15:51 INDICATION: Low back pain, unspecified. TECHNIQUE: Magnetic resonance imaging (MRI) of the lumbar spine was performed without intravenous con trast. Sequences included sagittal T2-weighted FSE, sagittal T2-weighted FS FSE, sagittal T1-weighted FSE, and axial T2-weighted FSE. COMPARISON: None. FINDINGS: There is 18 degrees levoscoliosis of thoracolumbar spine. There is 4 mm retrolisthesis of T 12 on L1, 5 mm retrolisthesis of L1 on L2 and L2 on L3, and 8 mm anterolisthesis of L4 on L5. There i s mild chronic anterior wedging of T11 and T12 vertebral bodies. There is severely decreased disc hei ght from T11-T12 through L1-L2, moderately decreased disc height at L2-L3 and L3-L4, and mildly decre ased disc height at L4-L5. The distal spinal cord signal intensity is normal. The conus medullaris is at L1. The following disc levels are specifically discussed: L1-L2: The disc is bulging. There is severe bilateral facet joint osteoarthritis. There is moderate b ilateral neural foraminal stenosis. There is mild central canal stenosis. L2-L3: The disc is bulging and has an annular fissure. There is severe bilateral facet joint osteoart hritis. There is mild right and moderate left neural foraminal stenosis. There is mild central canal stenosis. L3-L4: The disc is bulging and has an annular fissure. There is severe bilateral facet joint osteoart hritis. There is mild bilateral neural foraminal stenosis. There is mild central canal stenosis. L4-L5: The disc is bulging. There is severe bilateral facet joint osteoarthritis. There is mild bilat eral neural foraminal stenosis. There is mild central canal stenosis. L5-S1: The disc does not extend beyond the endplate margin. There is severe bilateral facet joint ost eoarthritis. There is mild bilateral neural foraminal stenosis. There is no central canal stenosis. IMPRESSION: 1. Severe lumbar and lower thoracic spondylosis. 2. Thoracolumbar levoscoliosis. Reviewed, dictated and finalized at location A.
== END 2023-11-18 14:38 | disposition home or self-care (01) ==
LOC: ANHIMG 14:38
PROVIDERS: PCP Family Medicine; Visit Provider Family Medicine
DX: M47.894 Other spondylosis, thoracic region (principal); M47.896 Other spondylosis, lumbar region
CPT/HCPCS: 72148

== ENCOUNTER 2023-12-30 14:19 | Outpatient (CLI) | payer MEDICARE, OTHER, SELFPAY ==
--- NOTE | 2023-12-31 07:21 | WPDPFTINT ---
PFT Procedure Performed PFT Procedure Performed Spirometry with Pre/Post Bronchodilator Plethysmography (Lung Vol) Diffusing Cap (DLCO) Flow Vol Loop PFT Interpretation This is a pulmonary function test with pre and post-bronchodilator spirometry, plethysmography and diffusing capacity. The test was performed and results interpreted in accordance with the 2019 and 2005 ATS/ERS Task Force guidelines respectively using the Global Lung Function Initiative-2012 reference equations. Patient demonstrated good effort and cooperation. Reproducibility criteria were met. The quality of the pre bronchodilator spirometry maneuver was Grade A and post bronchodilator spirometry maneuver was Grade B. Findings: Spirometry: There is decreased maximal expiratory airflow at all lung volumes with concave expiratory flow tracing. The contour the inspiratory flow tracing is normal. The pre bronchodilator FVC is 2.86 L, 122% predicted. The pre bronchodilator FEV1 is 1.70 L, 96% predicted. The pre bronchodilator FEV1: FVC ratio is 60%. The post bronchodilator FVC is 3.03 L, representing a 6% increase. The post bronchodilator FEV1 is 1.82 L, representing a 7% increase. The post bronchodilator FEV1: FVC ratio 60%. Plethysmography: The total lung capacity is 5.67 L, 116% predicted. The functional residual capacity is 2.57 L, 91% predicted. The residual volume is 2.54 L, 105% predicted. The slow vital capacity is 3.13 L. Diffusing capacity: The diffusing capacity unadjusted for hemoglobin and carboxyhemoglobin is 12.5, 67% predicted. The diffusing capacity adjusted for alveolar volume is 2.93, 71% predicted. Impression: The slow vital capacity is greater than forced vital capacity with a concave expiratory tracing and a low FEV1: FVC ratio with a normal FEV1. This is suggestive of small airways disease. There is no significant improvement after inhaling a single dose of albuterol. The lung volumes are normal. The diffusing capacity is normal. There are no prior studies for comparison
== END 2023-12-30 14:20 | disposition home or self-care (01) ==
LOC: ANHPFT 14:21
PROVIDERS: PCP Family Medicine; Visit Provider Family Medicine
DX: J43.9 Emphysema, unspecified (principal)
CPT/HCPCS: 94060; 94726; 94729

== ENCOUNTER 2024-02-29 12:51 | Outpatient (CLI) | payer MEDICARE, OTHER, SELFPAY ==
--- NOTE | ~2024-02-29 | CT_ITS ---
EXAMINATION: CT brain wo con DATE: 02/29/2024 13:08 INDICATION: Tremors TECHNIQUE: Computed tomography (CT) of the head was performed without intravenous contrast. The dose- length product was 605.33 mGy-cm. Automated exposure control and iterative reconstruction technique w ere employed. COMPARISON: CT dated 02/08/2014 FINDINGS: Chronic right lacunar infarction. Generalized atrophy. There are scattered mild periventric ular and subcortical white matter changes, most likely related to small vessel ischemic disease (micr oangiopathy). No ventriculomegaly or midline shift. Basilar cisterns are patent. There is intracrania l atherosclerosis. No acute intracranial hemorrhage, infarction, mass or mass effect. Paranasal sinus es and mastoids are pneumatized. No depressed skull fractures. IMPRESSION: 1. No acute intracranial abnormality. Reviewed, dictated and finalized at location B.
[2024-02-29 13:55] LABS: Free T4 Free Thyroxine 1.14 ng/mL (0.78-2.19)
[2024-02-29 14:43] LABS: Folic Acid 7.1 ng/mL (2.76->20)
== END 2024-02-29 12:52 | disposition home or self-care (01) ==
LOC: ANHIMG 12:56
PROVIDERS: PCP Family Medicine; Visit Provider Family Medicine
DX: R25.1 Tremor, unspecified (principal)
CPT/HCPCS: 36415; 70450; 82607; 82746; 84439; 84443

== ENCOUNTER 2024-10-18 14:15 | Inpatient (IN) | payer MEDICARE, OTHER, SELFPAY ==
[2024-10-18] VITALS (10 sets, daily range): BP systolic 98–130; BP diastolic 60–81; PULSE 61–157; RESP 16–20; TEMP 36.1–36.5; O2SAT 93–99; BMI 29.2
--- NOTE | ~2024-10-18 | XR_ITS ---
EXAMINATION: XR chest 2V DATE: 10/18/2024 14:57 INDICATION: Tachycardia. Dyspnea. TECHNIQUE: Frontal and lateral views of the chest were obtained. COMPARISON: Chest 2 views 09/17/2023, chest CT 11/10/2023 FINDINGS: There is mild scarring at the lung apices. There are lucencies in the lungs, consistent wit h emphysema. There are chronic reticular opacities at the lung bases. No pleural effusion or pneumoth orax. The heart size is normal. IMPRESSION: 1. Emphysema and mild chronic interstitial lung disease. Reviewed, dictated and finalized at location B.
--- NOTE | 2024-10-18 14:17 | ECG_ITS ---
Test Date: 2024-10-18 14:30:59 Measurements Intervals [place] Rate: 134 P: 94 VT: 189 QRS: 58 QRSD: 86 T: 61 QT: 349 QTc: 522 Interpretive Statements Atrial flutter with rapid ventricular rates No previous ECG available for comparison Electronically Signed On 10-19-2024 13:53:27 CDT by Zak Rojas M.D.
[2024-10-18 15:35] LABS: Basophils Absolute Auto 0.1 K/mm3 (0.0-0.1); Basophils Percent Auto 0.6 % (0.2-1.2); Eosinophils Absolute Auto 0.1 K/mm3 (0-0.3); Eosinophils Percent Auto 1.4 % (0-4.4); Hematocrit 44.3 % (37.0-47.0); Hemoglobin 14.6 g/dL (12.0-15.0); Immature Granulocyte Absolute 0.04 K/mm3 (0.00-0.031); Immature Granulocyte Percent A 0.5 % (0-0.5); Lymphocytes Absolute Auto 0.92 K/mm3 (0.9-3.2); Lymphocytes Percent Auto 10.9 % (18.3-44.2); Mean Corpuscular Hemoglobin 29.9 pg (26-34); Mean Corpuscular Volume 90.6 fl (80-100); Mean Platelet Volume 10.5 fl (7.4-10.4); Monocytes Absolute Auto 0.6 K/mm3 (0.1-0.6); Monocytes Percent Auto 6.5 % (2.6-8.5); Neutrophils Absolute Auto 6.7 K/mm3 (1.3-6.7); Neutrophils Percent Auto 80.1 % (45.5-73.1); Platelet Count Result 167 k/mm3 (150-375); Red Blood Count 4.89 M/mm3 (4.2-5.4); Red Cell Distribution Width 12.5 % (11.5-14.5); White Blood Count 8.4 K/mm3 (4.5-10.0)
[2024-10-18 15:46] LABS: Alanine Aminotransferase 13 U/L (6-35); Albumin Level 4.7 g/dL (3.5-5.1); Alkaline Phosphatase 70 U/L (38-126); Anion Gap 13 mmol/L (4-12); Aspartate Amino Transferase 22 U/L (14-36); Blood Urea Nitrogen 20 mg/dL (7-17); Calcium 9.4 mg/dL (8.4-10.2); Carbon Dioxide 22 mmol/L (22-30); Chloride 108 mmol/L (98-107); Estimated CRCL calculation 23 ml/min; Estimated Glomerular Filt Rate 31; Glucose 111 mg/dL (65-110); Sodium 143 mmol/L (137-145)
--- NOTE | 2024-10-18 16:01 | ECG_ITS ---
Test Date: 2024-10-18 16:08:44 Measurements Intervals [place] Rate: 134 P: 0 DE: 0 QRS: 52 QRSD: 87 T: 21 QT: 314 QTc: 470 Interpretive Statements ATRIAL FLUTTER/TACHYCARDIA WITH RAPID VENTRICULAR RESPONSE Compared to ECG 10/18/2024 14:30:59 No significant change Electronically Signed On 10-19-2024 13:56:33 CDT by Zak Rojas M.D.
--- OUTSIDE RECORDS SUMMARY | 2024-10-18 16:03 | XMS_ITS | Clinical Summary ---
Author Organization [facility] [place] Address [facility] [place] [address] Care Team Providers Care Cigar Making Supervisor Name Role Phone Parker Mariee MD Primary Care Provider Allergies Active Allergy Reactions Criticality Noted Date Comments Sulfabenzamide Rash Medium 10/14/2016 Medications No known medications Active Problems No known active problems Social History Tobacco Use Types Packs/Day Years Used Date Smoking Tobacco: Never Personal Safety Answer Date Recorded Getting School Help Needed Not on file 10/22 Comments Unknown Sex and Gender Information Value Date Recorded Sex Assigned at Not on file 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 Gender Identity Not on file Sexual Orientation Not on file Obstetrics History Last Filed Vital Signs Vital Sign Reading Time Taken Comments Blood Pressure 152/75 03/12/2020 5:43 PM CDT Pulse 73 03/12/2020 5:43 PM CDT Temperature 36.1 C (97 F) 03/21/2020 8:41 AM CDT Respiratory Rate - - Oxygen Saturation 97% 03/12/2020 5:43 PM CDT Inhaled Oxygen Concentration - - Weight 84.8 kg (187 lb) 03/12/2020 5:43 PM CDT Height 167.6 cm (5' 6 ) 03/12/2020 5:43 PM CDT Body Mass Index 30.18 03/12/2020 5:43 PM CDT Plan of Treatment Not on file Insurance TERRANCE Ram [id number] [employer] CHOICE MEDICARE P[place] [facility] [place] [address] [place] [address] Care Teams Cigar Making Supervisor Relationship Specialty Start Date End Date Parker Mariee MD [address] [place] [address] PCP - General 02/16/14
--- OUTSIDE RECORDS SUMMARY | 2024-10-18 16:03 | XMS_ITS | Referral Summary ---
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
--- OUTSIDE RECORDS SUMMARY | 2024-10-18 16:03 | XMS_ITS | Clinical Summary ---
Author Organization [facility] Address [facility] [place] [address] Care Team Providers Care Workforce Management Coordinator Name Role Phone Parker Mariee MD Primary Care Provider [phone] Allergies Active Allergy Reactions Criticality Noted Date Comments Sulfa Antibiotics Rash Low 09/15/2024 Medications oseltamivir (TAMIFLU) 75 MG capsule Take 1 capsule (75 mg total) by mouth daily for 4 days. 4 capsule 09/16/2024 09/20/19 25 Encounters Date Type Department Care Team Description 09/15/2024 8:17 PM HAND HIDE STRETCHER - 09/15/2024 9:14 PM HAND HIDE STRETCHER Emergency [facility] Emergency Room [address] [place] [address] David Lawson MD Flu Like Symptoms Discharge Disposition: Home or Self Care (Routine Discharge) 09/15/2024 Travel from Last 3 Months Family History Medical History Relation Comments Breast Cancer Daughter Relation Status Comments Daughter Social History Tobacco Use Types Packs/Day Years Used Date Smoking Tobacco: Former Cigarettes Smokeless Tobacco: Never Tobacco Cessation:Counseling Given: Not Answered Alcohol Use Standard Drinks/Week Comments Yes 0 (1 standard drink = 0.6 oz pur e alcohol) socially Comments No Sex and Gender Information Value Date Recorded Sex Assigned at Female 09/15/2024 8:13 PM HAND HIDE STRETCHER Legal Sex Female 10:40 AM CDT Gender Identity Not on file Sexual Orientation Not on file Last Filed Vital Signs Vital Sign Reading Time Taken Comments Blood Pressure 166/79 09/15/2024 9:13 PM HAND HIDE STRETCHER Pulse 90 09/15/2024 9:13 PM HAND HIDE STRETCHER Temperature 36.8 C (98.2 F) 09/15/2024 9:13 PM HAND HIDE STRETCHER Respiratory Rate 18 09/15/2024 9:13 PM HAND HIDE STRETCHER Oxygen Saturation 96% 09/15/2024 9:13 PM HAND HIDE STRETCHER Inhaled Oxygen Concentration - - Weight - - Height - - Body Mass Index - - Plan of Treatment Health Maintenance Due Date Last Done Comments DTaP, Tdap and Td Vaccines ( 1 - Tdap) 1958 Zoster Vaccines (1 of 2) 1989 Annual Medicare Wellness Visit 2004 Pneumococcal Vaccine: 65+ Ye ars (1 of 1 - PCV) 2004 RSV Immunization or 60+ Years (1 - 1-dose 75+ series) 2014 COVID-19 Vaccine (2023-2 5 season) 2024 Influenza Adult (#1) 2024 Meningococcal B Vaccine Aged Out No l onger eligible based on patient's age to complete this topic Meningococcal Vaccine Aged Out No luan christopher eligible based on patient's age to complete this topic RSV Immunizations Under 20 Months Aged Out No longer eligible based on patient's age to complete this topic Procedures Procedure Name Priority Date/Time Associated Diagnosis Comments XR CHEST PA+LAT STAT 09/15/2024 8:54 PM HAND HIDE STRETCHER CORONAVIRUS (COVID 19) STAT 09/15/2024 8:26 PM HAND HIDE STRETCHER INFLUENZA A & B STAT 09/15/2024 8:26 PM HAND HIDE STRETCHER from Last 3 Months Results * XR CHEST PA+LAT (09/15/2024 8:54 PM HAND HIDE STRETCHER) Anatomical Region Laterality Modality Chest Radiographic Lizzette ging 09/15/2024 8:56 PM HAND HIDE STRETCHER Impressions 09/15/2024 9:00 PM HAND HIDE STRETCHER IMPRESSION: Findings suggestive of trace bilateral pleural effusions with associated atelectasis. Referred By: Interpreted By: Jason Shen MD, 09/15/2024 8:56 PM Narrative 09/15/2024 9:00 PM HAND HIDE STRETCHER [facility] [address] [place] [address] Examination: XR CHEST PA+LAT Exam time: 09/15/2024 8:28 PM Indication: Cough Comparison: 740 Technique: PA and lateral views of the chest, 2 images. Findings: The central silhouette and pulmonary vasculature are within normal limits. There is trace blunting of the costophrenic angles with minimal linear opacities adjacent, suggestive of trace pleural effusions and associated atelectasis. No pneumothorax or focal consolidation. No acute osseous abnormality. Procedure Note Jason Shen MD - 09/15/2024 [facility] [address] [place] [id number] Examination: XR CHEST PA+LAT Exam time: 09/15/2024 8:28 PM Indication: Cough Comparison: 740 Technique: PA and lateral views of the chest, 2 images. Findings: The central silhouette and pulmonary vasculature are withinnormal limits. There is trace blunting of the costophrenic angles withminimal linear opacities adjacent, suggestive of trace pleural effusionsand associated atelectasis. No pneumothorax or focal consolidation. Noacute osseous abnormality. IMPRESSION: Findings suggestive of trace bilateral pleural effusions withassociated atelectasis. Referred By: Interpreted By: Jason Shen MD, 09/15/2024 8:56 PM David Lawson MD GENERAL IMAGING Final Result * CORONAVIRUS (COVID-19) MOLECULAR (09/15/2024 8:26 PM HAND HIDE STRETCHER) CORONAVIRUS SARS COV 2 RNA NEGATIVE NEGATIVE 09/15/2024 8:52 PM HAND HIDE STRETCHER [facility] Comment: NEGATIVE RESULTS DO NOT RULE OUT COVID 19 AND SHOULD NOT BE USED THE SOLE BASIS FOR TREATMENT OR PATIENT MANAGEMENT DECISIONS, INCLUDING INFECTION CONTROL DECISIONS. NEGATIVE RESULTS SHOULD BE CONSIDERED IN THE CONTEXT OF A PATIENT'S RECENT EXPOSURES, HISTORY AND THE PRESENCE OF CLINICAL SIGNS AND SYMPTOMS CONSISTENT WITH COVID 19. THE ID NOW COVID-19 2.0 TEST HAS BEEN AUTHORIZED BY THE FDA UNDER EAU FOR USE BY AUTHORIZED LABORATORIES. PERFORMED BY NUCLEIC ACID AMPLIFICATION FOR MOLECULAR QUALITATIVE DETECTION OF SARS-COV-2. SPECIMEN TYPE NASAL 09/15/2024 8:29 PM HAND HIDE STRETCHER [facility] NASOPHARYNGEAL SWAB / Unknown 09/15/2024 8:26 PM HAND HIDE STRETCHER David Lawson MD MICROBIOLOGY - GENERAL ORDERABLE S Final Result Performing Organization Address City/[facility]/ZIP Co de Phone Number [facility] [address] [place] [address], [place] [phone] * (ABNORMAL) INFLUENZA A & B (09/15/2024 8:26 PM HAND HIDE STRETCHER) SPECIMEN TYPE NASOPHARYNGEAL SWAB 09/15/2024 8:39 PM HAND HIDE STRETCHER [facility] INFLUENZA A POSITIVE(A) NEGATIVE 09/15/2024 8:59 PM HAND HIDE STRETCHER [facility] INFLUENZA B NEGATIVE NEGATIVE 09/15/2024 8:59 PM HAND HIDE STRETCHER [facility] NASAL NASOPHARYNGEAL SWAB / Unknown 09/15/2024 8:26 PM HAND HIDE STRETCHER David Lawson MD MICROBIOLOGY - GENERAL ORDERABLE S Final Result Performing Organization Address [facility] Co de Phone Number [facility] [address] [place] [address], [place] [phone] from Last 3 Months Insurance [employer] Care Teams Workforce Management Coordinator Relationship Specialty Start Date End Date Parker Mariee MD [address] [place] [address] PCP - General FAMILY PRACTICE 02/08/18
--- OUTSIDE RECORDS SUMMARY | 2024-10-18 16:03 | XMS_ITS | Continuity of Care Document ---
Author Organization [facility] Address [address] [place] [address] Phone Care Team Providers Care Rail Operator Name Role Phone Shay Nelson Unavailable Unavailable Procedures Procedure Date Office/outpatient Visit, Est Dilated Retinal Exam W Interpretation Au g Office/outpatient Visit, Est Dilated Retinal Exam W Interpretation Ma No Script Advance Directives Directive Yes / No Effective Date File Name No Information Encounters Encounter Description Practice Location Reason(s) For Visit Diagnoses Date Provider Providers Copied on Encounter Office/outpat ient Visit, [facility], [id number] [place] [address] [address], [place], [place], [id number], [place] tel:[phone] [facility] No Information 2-201 0 Leslie Day. [facility] [place] , [address], [place], [place], [facility], [place]. tel:[phone] Office/outpat ient Visit, [facility], [address], [place], [place], [id number], [place] tel:[phone] [facility] No Information [phone] Tomeka Charles. [address] [facility] [address], [place], [place], [facility], [place]. tel:[phone] Family History Family Member Type Diagnosis Age At Onset No Information Payers Payer name Insurance type Covered alliance party ID Sarah Beth garzas) Medicare [place] [id number] [facility] [id number] Social History Type Description Quantity Date Captured Comments Sex Female Smoking Status No Information Chief Complaint And Reason For Visit No Information Reason For Referral Reason For Referral No Information History Of Present Illness Encounter Date Complaint History Of Prese nt Illness No Information Functional Status Date Functional Assessmen t No Information Instructions Date Instruction Additional Infor mation No Information Assessments Type Assessment Date No Information Patient Care Teams Name Effective Dates (start - stop) Status Members No Information
[2024-10-18] MEDS: ASPIRIN 81 MG CHEWABLE TABLET 324 MG PO (16:07)
[2024-10-18] MEDS: LACTATED RINGERS 1,000 ML 1000 ML IV CONT (16:07)
[2024-10-18 16:27] LABS: Troponin I < 0.012 ng/mL (0.000-0.034)
--- NOTE | 2024-10-18 16:45 | ED_ITS ---
HPI - Arrhythmia/Palpitations General Chief Complaint: Arrhythmia/Palpitations Stated Complaint: tachycardia and dyspnea Time Seen by Provider: 10/18/24 15:57 History of Present Illness HPI narrative: 84-year-old female with a past medical history including [id number] diabetes, hypertension, CKD, GERD, hyperlipidemia. She presents to the emergency department today for tachycardia. She went to her primary care provider's office for routine evaluation, found to be hypertensive and tachycardic and sent to the ER for evaluation. Patient has no history of atrial fibrillation or atrial flutter, EKG in triage shows a flutter with 2-1 conduction. No anticoagulation use besides aspirin. No history of blood clots DVT or PE. No recent surgeries, no long travel, no history of cardioversion or cardiac events to her knowledge. Related Data Home Medications ?Medication ?Instructions ?Recorded ?Confirmed ?Last Taken ?Type aspirin 81 mg tablet,delayed 81 mg PO DAILY 01/13/21 10/18/24 Unknown History release Allergies Allergy/AdvReac Type Severity Reaction Status Date / Time Sulfa (Sulfonamide Allergy Unknown Unknown Verified 10/18/24 14:17 Antibiotics) sulfanilamide Allergy Unknown Unknown Verified 10/18/24 14:17 Review of Systems 2 Review of Systems: As reviewed above in HPI [facility] Past Medical History Medical History Tremor COPD (chronic obstructive pulmonary disease) Pulmonary emphysema Lumbar spondylosis Insomnia Primary osteoarthritis, unspecified site HLD (hyperlipidemia) 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 LILIANE (generalized anxiety disorder) DM renal manif type II Chronic kidney disease, stage III (moderate) Chronic GERD Surgical History Surgical History History of Descemet membrane endothelial keratoplasty (DMEK) OS Family History Family History Father Family history of malignant neoplasm of stomach Family history of diabetes mellitus in first degree relative Mother Family history of malignant neoplasm of ovary Social History Social History Smoking packs per day: 1 Smoking cigarettes per day: 20.0 Smoking status: Former smoker Tobacco type: cigarettes Second hand tobacco smoke exposure: No Alcohol intake: never Substance use: never Substance use type: does not use Do You Feel Safe in your Home?: Yes Lack of Transportation: No Lack of Food: Never True Current Housing: I Have Housing Concerned About Future Housing: No Difficulty Paying Gas/Electric Bills: No Difficulty Paying for Meds: No Currently Unemployed: YES Education: Don't Know Difficulty w/ Childcare or Family Care: No Living arrangements: with family Occupation/Education: retired Gender identity (if verbalized by the patient): Female Sexual Orientation (if Verbalized by the Patient): Straight or Heterosexual Exam 2 Narrative: GENERAL: [Well-appearing, well-nourished, and in no acute distress.] HEAD: [Normocephalic, atraumatic.] EYES: [PERRLA and EOMI.] ENT: Nares clear, no rhinorrhea or epistaxis. Mucous membranes moist. NECK: Supple. CHEST: [Clear to auscultation. No respiratory distress.] HEART: Tachycardic rate with a regular rhythm. No murmur heard. [Normal peripheral pulses.] ABDOMEN: [Soft, nondistended], [nontender], [No rigidity or guarding] EXTREMITIES: Normal range of motion. [No edema.] SKIN: Warm, dry, no rash. NEURO: [No focal deficits]. Alert and oriented [x3.] PSYCH: [Normal mood and affect.] Course Vital Signs Vital signs: Vital Signs Temperature 36.1 C L 10/18/24 14:19 Pulse Rate 140 H 10/18/24 14:19 Respiratory Rate 20 10/18/24 14:19 Blood Pressure 98/69 L 10/18/24 14:19 Pulse Oximetry 96 10/18/24 14:19 Oxygen Delivery Room Air 10/18/24 14:19 Temperature 36.1 C L 10/18/24 14:19 Pulse Rate 68 10/18/24 19:57 Respiratory Rate 18 10/18/24 19:57 Blood Pressure 121/66 10/18/24 19:57 Pulse Oximetry 96 10/18/24 17:45 Oxygen Delivery Room Air 10/18/24 15:35 MDM - Arrhythmia/Palpitations MDM Narrative Medical decision making narrative: 84-year-old female with history of diabetes, hypertension, CKD, hyperlipidemia presenting to the ER for evaluation of hypertension and low blood pressure. She went to her primary care provider's office and noted to have tachycardia today and sent to ER for evaluation. No history of AFib or a flutter. Found to be in atrial flutter with 2-1 conduction on EKG in triage. Blood pressure stable with a blood pressure 108/76, heart rate seems to be holding steady at 135 beats per minute. No tachypnea, fever or hypoxia. She states that she does not feel any symptoms such as palpitations or chest pain but does note some exertional dyspnea on and off for the last several weeks. Differential diagnosis at this time includes new onset atrial flutter, atrial fibrillation, atrial tachycardia. Low suspicion SVT. Potential occlusive event such as a myocardial infarction less likely. PE unlikely based on exam findings. Workup ordered including CBC, CMP, troponin, BNP, chest x-ray, serial EKGs. I relayed the EKG to the on-call furniture mover helper Dr. Zhong who recommended making the patient NPO for potential cardioversion tomorrow. NPO at midnight and to attempt rate controlling therapies with calcium channel blockade and start placed on Eliquis given her high age and risk factors. Patient was given a 10 mg dose of Cardizem x2 and started on a Cardizem infusion. P.o. 5 mg Eliquis ordered. Laboratory studies showed no leukocytosis or anemia. Normal platelet count. Negative D-dimer, negative troponin, normal electrolytes, BUN and creatinine mildly elevated above normal CKD range. Normal glucose and LFTs. 3 hour troponin also negative. Normal TSH. Chest x-ray shows emphysema. Patient was re-evaluated with rate control and what appears to be conversion normal sinus rhythm on the monitor but she is currently at 5 of Cardizem infusion. Patient states she feels symptomatically improved. She will require hospitalization at this time for evaluation by Cardiology and rate control regimen anticoagulation regimen. Discussed the case with the hospitalist currently being covered by Candy Allen who accepted the patient to the IMU at this time. Repeat EKG shows sinus rhythm, no signs of ST segment elevations, depressions or inversions. Medical Records Attestation: I reviewed the patient's medical records. Lab Data Attestation: I reviewed the patient's lab results. 10/18/24 15:28 10/18/24 15:28 Labs: Lab Results 03/08/0210/18/24 10/18/24 Range/Units 15:26 15:28 16:54 WBC 8.4 (4.5-10.0) K/mm3 RBC 4.89 (4.2-5.4) M/mm3 Hgb 14.6 (12.0-15.0) g/dL Hct 44.3 (37.0-47.0) % MCV 90.6 (80-100) fl MCH 29.9 (26-34) pg MCHC 33.0 (32-36) g/dl RDW 12.5 (11.5-14.5) % Plt Count 167 (150-375) k/mm3 MPV 10.5 H (7.4-10.4) fl Immature Gran % (Auto) 0.5 (0-0.5) % Neut % (Auto) 80.1 H (45.5-73.1) % Lymph % (Auto) 10.9 L (18.3-44.2) % Gray % (Auto) 6.5 (2.6-8.5) % Eos % (Auto) 1.4 (0-4.4) % Baso % (Auto) 0.6 (0.2-1.2) % Lymph # (Auto) 0.92 (0.9-3.2) K/mm3 Gray # (Auto) 0.6 (0.1-0.6) K/mm3 Eos # (Auto) 0.1 (0-0.3) K/mm3 Baso # (Auto) 0.1 (0.0-0.1) K/mm3 Abs Immat Gran (auto) 0.04 H (0.00-0.031) K/mm3 Absolute Neuts (auto) 6.7 (1.3-6.7) K/mm3 Absolute Nucleated RBC 0.000 (0.0-0.012) K/mm3 Nucleated RBC % 0.0 (0.0-0.2) % D-Dimer 0.30 (<0.48) ug/mL Sodium 143 (137-145) mmol/L Potassium 4.0 (3.4-5.0) mmol/L Chloride 108 H (98-107) mmol/L Carbon Dioxide 22 (22-30) mmol/L Anion Gap 13 H (4-12) mmol/L BUN 20 H (7-17) mg/dL Creatinine 1.58 H (0.7-1.0) mg/dL Estim Creat Clear Calc 23 ml/min Estimated GFR 31 L (59 - ) Glucose 111 H (65-110) mg/dL Calcium 9.4 (8.4-10.2) mg/dL Total Bilirubin 1.0 (0.2-1.3) mg/dL AST 22 (14-36) U/L ALT 13 (6-35) U/L Alkaline Phosphatase 70 (38-126) U/L Troponin I < 0.012 (0.000-0.034) ng/mL Total Protein 8.0 (6.3-8.2) g/dL Albumin 4.7 (3.5-5.1) g/dL TSH (Reflex) 3.070 (0.465-4.68) uIU/mL 10/18/24 Range/Units 19:06 WBC (4.5-10.0) K/mm3 RBC (4.2-5.4) M/mm3 Hgb (12.0-15.0) g/dL Hct (37.0-47.0) % MCV (80-100) fl MCH (26-34) pg MCHC (32-36) g/dl RDW (11.5-14.5) % Plt Count (150-375) k/mm3 MPV (7.4-10.4) fl Immature Gran % (Auto) (0-0.5) % Neut % (Auto) (45.5-73.1) % Lymph % (Auto) (18.3-44.2) % Gray % (Auto) (2.6-8.5) % Eos % (Auto) (0-4.4) % Baso % (Auto) (0.2-1.2) % Lymph # (Auto) (0.9-3.2) K/mm3 Gray # (Auto) (0.1-0.6) K/mm3 Eos # (Auto) (0-0.3) K/mm3 Baso # (Auto) (0.0-0.1) K/mm3 Abs Immat Gran (auto) (0.00-0.031) K/mm3 Absolute Neuts (auto) (1.3-6.7) K/mm3 Absolute Nucleated RBC (0.0-0.012) K/mm3 Nucleated RBC % (0.0-0.2) % D-Dimer (<0.48) ug/mL Sodium (137-145) mmol/L Potassium (3.4-5.0) mmol/L Chloride (98-107) mmol/L Carbon Dioxide (22-30) mmol/L Anion Gap (4-12) mmol/L BUN (7-17) mg/dL Creatinine (0.7-1.0) mg/dL Estim Creat Clear Calc ml/min Estimated GFR (59 - ) Glucose (65-110) mg/dL Calcium (8.4-10.2) mg/dL Total Bilirubin (0.2-1.3) mg/dL AST (14-36) U/L ALT (6-35) U/L Alkaline Phosphatase (38-126) U/L Troponin I < 0.012 (0.000-0.034) ng/mL Total Protein (6.3-8.2) g/dL Albumin (3.5-5.1) g/dL TSH (Reflex) (0.465-4.68) uIU/mL Imaging Data Attestation: I personally reviewed and interpreted this imaging study as follows: My impression: Impressions Chest X-Ray 10/18/24 14:58 IMPRESSION: 1. Emphysema and mild chronic interstitial lung disease. ECG Data EKG #1: Attestation: I personally reviewed and interpreted this ECG as follows: ECG completion date: 10/18/24 ECG completion time: 16:08 Prior ECG tracings: available for review Interpretation: Atrial flutter, 2-1 conduction, rate of 134, QTC 470, no P waves, QRS 87. No ST segment elevations, depressions or inversions. Found starvation atrial flutter with rapid ventricular response, compared to prior EKG this is new onset. Critical Care Time Critical Care Time Critical Care Time: Yes Total Critical Care Time: 75 Discharge Plan Discharge Clinical Impression: Atrial flutter with rapid ventricular response, Acute dyspnea Patient Disposition: Still a Patient Condition: Stable Patient Language: Polish Prescriptions: No Action aspirin 81 mg tablet,delayed release (DR/EC) 81 mg PO DAILY amlodipine 2.5 mg tablet 2.5 mg PO DAILY Qty: 90 3RF Trelegy Ellipta 100-62.5-25 mcg blister with device 1 inh inhalation DAILY Qty: 180 3RF clonazepam 0.5 mg tablet 0.5 mg PO QHS Qty: 30 0RF Rx Instructions: administer 30 minutes before bedtime atorvastatin 40 mg tablet 40 mg PO DAILY Qty: 90 3RF diclofenac sodium 75 mg tablet,delayed release (DR/EC) 75 mg PO BID Qty: 180 3RF losartan 100 mg tablet 100 mg PO DAILY Qty: 90 3RF omeprazole 20 mg tablet,delayed release (DR/EC) 20 mg PO DAILY Qty: 90 3RF sertraline 100 mg tablet 100 mg PO DAILY Qty: 90 3RF tramadol 50 mg tablet 50 mg PO BID PRN (Reason: pain) Qty: 60 0RF Januvia 100 mg tablet 100 mg PO DAILY Qty: 90 1RF zolpidem 10 mg tablet 10 mg PO QHS PRN (Reason: insomnia) Qty: 90 0RF Follow-up/Referrals: Parker aMriee MD [Primary Care Provider] - Time of Disposition: 17:45
[2024-10-18] MEDS: dilTIAZem HCl INJ 25 MG/5 ML VIAL 10 MG IV PUSH ×2 (16:49→17:04)
[2024-10-18] MEDS: APIXABAN 5 MG TABLET PO (16:50)
[2024-10-18] MEDS: dilTIAZem 100 MG/100 ML 100 MG/100 ML BAG IV CONT (17:03)
--- NOTE | 2024-10-18 17:55 | P.HP_ITS ---
H&P: HPI History of Present Illness Date/Time: 10/18/24 17:55 Chief Complaint: Shortness of breath and tachycardia. Narrative: This is a pleasant 84-year-old female with hypertension, hyperlipidemia, type 2 diabetes mellitus, chronic kidney disease stage III, chronic obstructive pulmonary disease, gastroesophageal reflux disease, and anxiety who presented to the emergency department via private vehicle at the direction of her doctor for evaluation of shortness of breath and tachycardia. The patient provides the following history. She had a routine appointment with her primary doctor today and was found to have a heart rate in the 130s to 140s. With further questioning she admitted that she had been feeling short of breath for the last several weeks if not longer. She has no sensations of racing heart or palpitations. She has no known history of thyroid disease, sleep apnea, or cardiac dysrhythmia. She also denies syncope, near syncope, fever, chest pain, pleuritic pain, orthopnea, paroxysmal nocturnal dyspnea, lower extremity edema, nausea, and vomiting. She drinks 1 caffeinated beverage a day and denies alcohol use. In the ED: Vital signs on arrival include a temperature of 97?, blood pressure 98/69, pulse 140, respiratory 20, SpO2 96% on room air. Labs were significant for a BUN of 20, creatinine 1.58, troponin less than 0.012, TSH 3.070. Chest x- ray showed emphysema and mild chronic interstitial lung disease. EKG showed atrial flutter with 2 to 1 conduction. She received a diltiazem bolus and was started on a diltiazem drip. She also received a dose of apixaban 5 mg x 1 with plans for possible cardioversion tomorrow after discussing with Cardiology. Within a couple of hours she converted to a normal sinus rhythm and EKG at that time showed findings of a possible anterior NC, probably old. She is being admitted in this setting for closer monitoring and Cardiology consultation. Review of Systems Review of Systems: 12 systems were reviewed and are negativ e except for as per HPI. [facility] Past Medical History Medical History (Updated 10/18/24 @ 22:55 by Candy Bo PA-C) Hypertension Chronic obstructive pulmonary disease Type 2 diabetes mellitus Hyperlipidemia Anxiety Tremor Pulmonary emphysema Lumbar spondylosis Insomnia Primary osteoarthritis, unspecified site Chronic kidney disease, stage III (moderate) Chronic GERD Surgical History Surgical History (Updated 10/18/24 @ 22:53 by Candy Bo PA-C) History of hysterectomy History of tonsillectomy History of cataract extraction History of Descemet membrane endothelial keratoplasty (DMEK) OS Family History Family History Father Family history of malignant neoplasm of stomach Family history of diabetes mellitus in first degree relative Mother Family history of malignant neoplasm of ovary Social History Social History (Updated 10/18/24 @ 22:54 by Candy Bo PA-C) Social History: Surrogate medical decision maker: Debbie Hayden, daughter. Code status: Full code. Smoking packs per day: 1 Smoking cigarettes per day: 20.0 Years smoked: 30 Smoking pack-years: 30.00 Smoking status: Former smoker Tobacco type: cigarettes Second hand tobacco smoke exposure: No Alcohol intake: never Substance use: never Substance use type: does not use Do You Feel Safe in your Home?: Yes Lack of Transportation: No Lack of Food: Never True Current Housing: I Have Housing Concerned About Future Housing: No Difficulty Paying Gas/Electric Bills: No Difficulty Paying for Meds: No Currently Unemployed: No Education: High School Diploma/GED Difficulty w/ Childcare or Family Care: No Living arrangements: alone Additional living arrangements comments: Assisted living at [facility] in [place]. She has a small dog. 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 Spiritual care concerns: No Meds Home Medications and Allergies Home Medications ?Medication ?Instructions ?Recorded ?Confirmed ?Type aspirin 81 mg tablet,delayed 81 mg PO DAILY 01/13/21 10/18/24 History release clonazepam 0.5 mg tablet 0.5 mg PO QHS #30 tabs 12/18/22 10/18/24 Rx atorvastatin 40 mg tablet 40 mg PO DAILY #90 tabs 01/19/24 10/18/24 Rx diclofenac sodium 75 mg 75 mg PO BID #180 tabs 01/19/24 10/18/24 Rx tablet,delayed release losartan 100 mg tablet 100 mg PO DAILY #90 tabs 01/19/24 10/18/24 Rx omeprazole 20 mg tablet,delayed 20 mg PO DAILY #90 tabs 01/19/24 10/18/24 Rx release sertraline 100 mg tablet 100 mg PO DAILY #90 tabs 01/19/24 10/18/24 Rx tramadol 50 mg tablet 50 mg PO BID PRN pain #60 tabs 01/19/24 10/18/24 Rx amlodipine 2.5 mg tablet 2.5 mg PO DAILY #90 tabs 01/25/24 10/18/24 Rx fluticasone fur. 100 mcg-umeclid 1 inh inhalation DAILY #180 ea 01/25/24 10/18/24 Rx 62.5 mcg-vilant 25 mcg inhalat.powder (Trelegy Ellipta) sitagliptin phosphate 100 mg 100 mg PO DAILY #90 tabs 04/28/24 10/18/24 Rx tablet (Januvia) zolpidem 10 mg tablet 10 mg PO QHS PRN insomnia #90 tabs 07/24/24 10/18/24 Rx Allergies Allergy/AdvReac Type Severity Reaction Status Date / Time Sulfa (Sulfonamide Allergy Unknown Unknown Verified 10/18/24 14:17 Antibiotics) sulfanilamide Allergy Unknown Unknown Verified 10/18/24 14:17 Vital Signs Vital Signs - 24 hr 10/18/24 14:19 10/18/24 15:35 10/18/24 15:35 Temperature 97 F L Pulse Rate 140 H 135 H Respiratory Rate 20 18 Blood Pressure 98/69 L 102/81 Pulse Oximetry 96 93 Oxygen Delivery Room Air Room Air 10/18/24 16:37 10/18/24 17:03 Temperature Pulse Rate 135 H 157 H Respiratory Rate 16 Blood Pressure 108/76 112/78 Pulse Oximetry 99 Oxygen Delivery Exam Narrative: General: Well-developed female sitting up at side of bed in no distress. She appears a bit younger than her stated age. Weight: 77.3 kg. BMI: 29.3. HEENT: PERRL, EOMI. Sclera anicteric. Oral mucosa moist. Neck: Supple. No JVD obvious thyromegaly. Respiratory: Lungs are clear to auscultation bilaterally. Cardiovascular: Regular rate and rhythm with S1-S2. Gastrointestinal: Abdomen is soft, nontender, and nondistended with positive bowel sounds. Skin: Warm and dry. No rash or lesions on limited exam. Extremities: No cyanosis, clubbing, or significant edema. Radial and pedal pulses intact. Neurological: Alert. Cranial nerves 2-12 are grossly intact. No gross focal deficits to casual conversation. Psychiatric: Pleasant and cooperative with normal mood and affect. Judgment and insight intact. H&P: Results Labs Labs: Short CBC 10/18/24 Range/Units 15:28 WBC 8.4 (4.5-10.0) K/mm3 Hgb 14.6 (12.0-15.0) g/dL Hct 44.3 (37.0-47.0) % Plt Count 167 (150-375) k/mm3 BMP 10/18/24 15:28 Sodium 143 Potassium 4.0 Chloride 108 H Carbon Dioxide 22 BUN 20 H Creatinine 1.58 H Glucose 111 H Calcium 9.4 Cardiac Enzymes 10/18/24 Range/Units 15:28 Troponin I < 0.012 (0.000-0.034) ng/mL Liver Function 10/18/24 Range/Units 15:28 Total Bilirubin 1.0 (0.2-1.3) mg/dL AST 22 (14-36) U/L ALT 13 (6-35) U/L Alkaline Phosphatase 70 (38-126) U/L Albumin 4.7 (3.5-5.1) g/dL Impressions Chest X-Ray 10/18/24 14:58 IMPRESSION: 1. Emphysema and mild chronic interstitial lung disease. Assessment and Plan Assessment and plan (1) Atrial flutter with rapid ventricular response: Code(s): I48.92 - Unspecified atrial flutter Status: Acute (2) Hypertension: Code(s): I10 - Essential (primary) hypertension Status: Acute (3) Hyperlipidemia: Code(s): E78.5 - Hyperlipidemia, unspecified Status: Acute (4) Type 2 diabetes mellitus: Code(s): E11.9 - Type 2 diabetes mellitus without complications Status: Acute (5) Chronic kidney disease, stage III (moderate): Code(s): N18.30 - Chronic kidney disease, stage 3 unspecified Status: Acute (6) Chronic obstructive pulmonary disease: Code(s): J44.9 - Chronic obstructive pulmonary disease, unspecified Status: Acute Plan The patient presented to the emergency department at the direction of her doctor for evaluation of shortness of breath and tachycardia as detailed in HPI. Labs, imaging, EKG, and all reports were personally reviewed. She was in 2:1 flutter on arrival and has converted to normal sinus rhythm on a Cardizem drip. Precip itating etiology is not clear. Echocardiogram ordered. She received 1 dose of apixaban in the ED and we will hold on further anticoagulation pending Cardiology input. Blood pressures have been stable since she converted. Consider changing amlodipine to diltiazem. Renal function is stable on review of previous labs. Continue sitagliptin and initiate sliding scale insulin, Accu-Cheks, and hypoglycemic protocol. No acute issues with regards to COPD. The rest of her home medications will be reviewed and resumed as appropriate. Findings and treatment plan were discussed with the patient. Questions were solicited and answered to satisfaction. The patient's medical management will be taken over by the hospitalist team in a.m. Quality VTE Prophylaxis VTE prophylaxis: pharmacologic ordered Hospitalist [facility] Advance Care Plan I have confirmed that the patient's Advanced Care Plan is present, code status is documented, or surrogate decision maker is listed in patient medical record.: Yes Medication Reconciliation I have utilized all available resources to obtain, update and review the patients current medications (includes all prescriptions, OTC, herbals, cannabis, and nutritional supplements).: Yes
--- OUTSIDE RECORDS SUMMARY | 2024-10-18 18:00 | XMS_ITS | Clinical Summary ---
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
--- OUTSIDE RECORDS SUMMARY | 2024-10-18 18:00 | XMS_ITS | Continuity of Care Document ---
Author Organization [facility] Address [address] [place] [address] Phone Care Team Providers Care Guide Escort Name Role Phone Shay Nelson Unavailable Unavailable Procedures Procedure Date Office/outpatient Visit, Est Dilated Retinal Exam W Interpretation Au g Office/outpatient Visit, Est Dilated Retinal Exam W Interpretation Ma No Script Advance Directives Directive Yes / No Effective Date File Name No Information Encounters Encounter Description Practice Location Reason(s) For Visit Diagnoses Date Provider Providers Copied on Encounter Office/outpat ient Visit, [facility], [id number] [place] [address] [address], [place], [place], [id number], [place] tel:[phone] [facility] No Information 2-201 0 Leslie Day. [facility] , [address], [place], [place], [facility], [place]. tel:[phone] Office/outpat ient Visit, [facility], [address], [place], [place], [id number], [place] tel:[phone] [facility] No Information 9-200 9 Tomeka Charles. [address] [facility] [address], [place], [place], [facility], [place]. tel:[phone] Family History Family Member Type Diagnosis Age At Onset No Information Payers Payer name Insurance type Covered libertarian ID Sarah Beth garzas) [place] [id number] [facility]ly [facility] [id number] Social History Type Description Quantity Date Captured [...]
--- OUTSIDE RECORDS SUMMARY | 2024-10-18 18:00 | XMS_ITS | Referral Summary ---
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
--- OUTSIDE RECORDS SUMMARY | 2024-10-18 18:00 | XMS_ITS | Clinical Summary ---
Author Organization [facility] Address [facility] [place] [address] Care Team Providers Care Correctional Supervisor Lieutenant Name Role Phone Parker Mariee MD Primary Care Provider [phone] Allergies Active Allergy Reactions Criticality Noted Date Comments Sulfa Antibiotics Rash Low 09/15/2024 Medications oseltamivir (TAMIFLU) 75 MG capsule Take 1 capsule (75 mg total) by mouth daily for 4 days. 4 capsule 09/16/2024 09/20/19 25 Encounters Date Type Department Care Team Description 09/15/2024 8:17 PM HUMAN RESOURCES ASSISTANT - 09/15/2024 9:14 PM HUMAN RESOURCES ASSISTANT Emergency [facility] Emergency Room [address] [place] [address] David Lawson MD Flu Like Symptoms Discharge [...] Sex Assigned at Female 09/15/2024 8:13 PM HUMAN RESOURCES ASSISTANT Legal Sex Female 10:40 AM CDT Gender Identity Not on file Sexual Orientation Not on file Last Filed Vital Signs Vital Sign Reading Time Taken Comments Blood Pressure 166/79 09/15/2024 9:13 PM HUMAN RESOURCES ASSISTANT Pulse 90 09/15/2024 9:13 PM HUMAN RESOURCES ASSISTANT Temperature 36.8 C (98.2 F) 09/15/2024 9:13 PM HUMAN RESOURCES ASSISTANT Respiratory Rate 18 09/15/2024 9:13 PM HUMAN RESOURCES ASSISTANT Oxygen Saturation 96% 09/15/2024 9:13 PM HUMAN RESOURCES ASSISTANT Inhaled Oxygen Concentration - - Weight - [...] XR CHEST PA+LAT STAT 09/15/2024 8:54 PM HUMAN RESOURCES ASSISTANT CORONAVIRUS (COVID 19) STAT 09/15/2024 8:26 PM HUMAN RESOURCES ASSISTANT INFLUENZA A & B STAT 09/15/2024 8:26 PM HUMAN RESOURCES ASSISTANT from Last 3 Months Results * XR CHEST PA+LAT (09/15/2024 8:54 PM HUMAN RESOURCES ASSISTANT) Anatomical Region Laterality Modality Chest Radiographic Lizzette ging 09/15/2024 8:56 PM HUMAN RESOURCES ASSISTANT Impressions 09/15/2024 9:00 PM HUMAN RESOURCES ASSISTANT IMPRESSION: Findings suggestive of trace bilateral pleural effusions with associated atelectasis. Referred By: Interpreted By: Jason Shen MD, 09/15/2024 8:56 PM Narrative 09/15/2024 9:00 PM HUMAN RESOURCES ASSISTANT [facility] [address] [place] [address] Examination: XR CHEST PA+LAT Exam time: 09/15/2024 [...] Procedure Note Jason Shen MD - 09/15/2024 [facility] [address] [place] [id number] Examination: XR CHEST PA+LAT Exam time: 09/15/2024 [...] * CORONAVIRUS (COVID-19) MOLECULAR (09/15/2024 8:26 PM HUMAN RESOURCES ASSISTANT) CORONAVIRUS SARS COV 2 RNA NEGATIVE NEGATIVE 09/15/2024 8:52 PM HUMAN RESOURCES ASSISTANT [facility] Comment: NEGATIVE RESULTS DO NOT RULE [...] SARS-COV-2. SPECIMEN TYPE NASAL 09/15/2024 8:29 PM HUMAN RESOURCES ASSISTANT [facility] NASOPHARYNGEAL SWAB / Unknown 09/15/2024 8:26 PM HUMAN RESOURCES ASSISTANT David Lawson MD MICROBIOLOGY - GENERAL ORDERABLE S Final Result Performing Organization Address City/[facility]/ZIP Co de Phone Number [facility] [address] [place] [address], [place] [phone] * (ABNORMAL) INFLUENZA A & B (09/15/2024 8:26 PM HUMAN RESOURCES ASSISTANT) SPECIMEN TYPE NASOPHARYNGEAL SWAB 09/15/2024 8:39 PM HUMAN RESOURCES ASSISTANT [facility] INFLUENZA A POSITIVE(A) NEGATIVE 09/15/2024 8:59 PM HUMAN RESOURCES ASSISTANT [facility] INFLUENZA B NEGATIVE NEGATIVE 09/15/2024 8:59 PM HUMAN RESOURCES ASSISTANT [facility] NASAL NASOPHARYNGEAL SWAB / Unknown 09/15/2024 8:26 PM HUMAN RESOURCES ASSISTANT David Lawson MD MICROBIOLOGY - GENERAL ORDERABLE S Final Result Performing Organization Address [facility] Co de Phone Number [facility] [address] [place] [address], [place] [phone] from Last 3 Months Insurance [employer] Care Teams Correctional Supervisor Lieutenant Relationship Specialty Start Date End Date Parker Mariee MD [address] [place] [address] PCP - General FAMILY PRACTICE 02/08/18
--- NOTE | 2024-10-18 18:39 | PC.NURSE ---
Dr. Reyes aware that pt. is now in sinus rhythm. Diltiazem infusion should be continued at current rate. No additional interventions.
--- NOTE | 2024-10-18 18:54 | ECG_ITS ---
Test Date: 2024-10-18 19:41:59 Measurements Intervals Chancellor Rate: 68 P: 44 WV: 186 QRS: 12 QRSD: 82 T: 46 QT: 407 QTc: 434 Interpretive Statements SINUS RHYTHM POSSIBLE LEFT ATRIAL ENLARGEMENT [-0.1mV P WAVE IN V1/V2] POSSIBLE ANTERIOR MYOCARDIAL INFARCTION , PROBABLY OLD [30 ms Q WAVE IN V3/V4, OR R < 0.2 mV IN V4] Compared to ECG 10/18/2024 16:08:44 Myocardial infarct finding now present Atrial flutter no longer present Electronically Signed On 10-19-2024 14:00:08 CDT by Zak Rojas M.D.
[2024-10-18 19:38] LABS: Troponin I < 0.012 ng/mL (0.000-0.034)
--- NOTE | 2024-10-18 22:09 | ADMGEN ---
This patient, Leighann Calvillo, was admitted to IMU Room 212-01. Patient/family oriented to hospital policies and general routines including ID bracelet, bed and alarms, visiting hours, pain management, procedures, bathroom and other care routines, personal items, smoking policy, room service/diet, and visiting hours. Information on how to activate the Rapid Response Team has been discussed. Patient/Family are encouraged to report perceived risks to care and to ask questions if they do not understand what they are told or what they should do.
[2024-10-18 22:41] LABS: Troponin I < 0.012 ng/mL (0.000-0.034)
[2024-10-18] MEDS: ZOLPIDEM TARTRATE (*CRX) 5 MG TABLET 10 MG PO (23:42)
[2024-10-19] VITALS (18 sets, daily range): BP systolic 116–147; BP diastolic 44–60; PULSE 61–79; RESP 16–19; TEMP 36.3–36.8; O2SAT 92–99
--- NOTE | 2024-10-19 00:35 | PCRCNOTE ---
Unable to do Apnea link at this time, Pt on a cardiac drip with Q2 vitals through out night.
[2024-10-19 04:43] LABS: Anion Gap 8 mmol/L (4-12); Blood Urea Nitrogen 20 mg/dL (7-17); Carbon Dioxide 26 mmol/L (22-30); Chloride 107 mmol/L (98-107); Estimated CRCL calculation 26 ml/min; Estimated Glomerular Filt Rate 36; Glucose 100 mg/dL (65-110); Potassium 3.6 mmol/L (3.4-5.0); Sodium 141 mmol/L (137-145)
--- NOTE | 2024-10-19 06:00 | ECHO_ITS ---
Patient Info Name: Leighann Vicente Winning Age: 84 years : 1940 Gender: Female Ht: 64 in Wt: 170 lbs BSA: 1.89 m2 HR: 73 bpm BP: 136 / 48 mmHg Heart Rhythm: Sinus Rhythm Technical Quality: Fair Exam Date: 10/19/2024 10:19 AM Exam Location: Echo Lab Patient Status: Inpatient Admit Date: 10/18/2024 Staff Ordering Physician: Daniele Reyes MD Sas Etl Developer: Grecia Slater RDCS Attending Provider: Rhys Bernal MD Referring Physician: Amy MUSTAFA; Exam Type: CA echo doppler color flow Study Info Indications - A flutter Complete two-dimensional, color flow and Doppler transthoracic echocardiogram is performed. Summary 1. Complete two-dimensional, color flow and Doppler transthoracic echocardiogram is performed. 2. There is normal biventricular size and systolic function. 3. The left atrium is mildly dilated. 4. There is no significant valvular disease. Left Ventricle The left ventricle is normal in size and systolic function. The left ventricular ejection fraction is visually estimated to be 55-60%. There is grade 2 diastolic dysfunction. Right Ventricle The right ventricle is normal in size and systolic function. Left Atria The left atrium is mildly dilated. Right Atria The right atrium is normal size. Atrial Septum The atrial septum is not well visualized. Aortic Valve The aortic valve is trileaflet and opens well. There is no aortic regurgitation. Pulmonic Valve The pulmonic valve is normal. There is no pulmonic valve regurgitation. Mitral Valve The mitral valve is normal. There is trace mitral regurgitation. There is posterior mitral annular calcification. Tricuspid Valve The tricuspid valve is grossly normal. There is trace tricuspid regurgitation. Pericardium/Pleural Pericardium is normal in appearance with no evidence for significant pericardial effusion. Inferior Vena Cava Inferior vena cava is not well visualized. Aorta The aortic root at the level of the sinus of Valsalva measures 3 by cm in diameter. Left Ventricular Outflow Tract Name Value Normal LVOT 2D LVOT Diameter 2.0 cm LVOT Doppler LVOT Peak Gradient 3 mmHg LVOT Mean Gradient 2 mmHg LVOT VTI 24 cm LVOT VTI/AV VTI Ratio 0.9 LVOT Stroke Volume 74 ml LVOT CO 4.7 l/min LVOT CI 2.5 l/min/m2 Pulmonic Valve Name Value Normal RVOT Doppler RVOT Peak Gradient 2 mmHg PV Doppler PV Peak Gradient 3 mmHg Mitral Valve Name Value Normal MV Doppler MV Decel Drew 373 cm/s2 MV PHT 92 ms MV Area (PHT) 2.4 cm2 4.0-5.0 MV Diastolic Function MV E Peak Velocity 118 cm/s MV A Peak Velocity 109 cm/s MV E/A 1.1 MV Decel Time 317 ms MV Annular TDI MV E/e' (Septal) 19.4 <=8.0 MV E/e' (Lateral) 18.4 <=8.0 MV E/e' (Average) 18.9 Tricuspid Valve Name Value Normal TV Regurgitation Doppler TR Peak Velocity 193 cm/s TR Peak Gradient 15 mmHg Aortic Valve Name Value Normal AV Doppler AV Peak Velocity 110 cm/s AV Peak Gradient 5 mmHg AV Mean Gradient 3 mmHg AV VTI 27 cm AV Area (Cont Eq VTI) 2.8 cm2 >=3.0 AV Area (Cont Eq Floyd) 2.6 cm2 AV Regurgitation 2D LVOT Area 3.0 cm2 Ventricles Name Value Normal LV Dimensions 2D/MM IVS Diastolic Thickness (2D) 1.1 cm 0.6-1.0 LVID Diastole (2D) 4.6 cm 3.8-5.2 LVIW Diastolic Thickness (2D) 1.0 cm 0.6-0.9 LVID Systole (2D) 3.1 cm 2.2-3.5 LVOT Diameter 2.0 cm LV Mass (2D Cubed) 174.43 g 67.00-162.00 LV Mass Index (2D Cubed) 92 g/m2 43-95 Relative Wall Thickness (2D) 0.44 LV Fractional Shortening/Ejection Fraction 2D/MM LV Fractional Shortening (2D) 32 % 27-45 LV EF (2D Teicholz) 60 % 54-74 LV Diastolic Volume (4C MOD) 94 ml LV EF (4C MOD) 65 % LV Diastolic Volume (2C MOD) 94 ml LV EF (2C MOD) 55 % LV Diastolic Volume (BP MOD) 94 ml 46-106 LV Diastolic Volume Index (BP MOD) 50 ml/m2 29-61 LV Systolic Volume (BP MOD) 37 ml 14-42 LV Systolic Volume Index (BP MOD) 20 ml/m2 8-24 LV EF (BP MOD) 60 % 54-74 LV Diastolic Length (4C) 7.1 cm LV Systolic Length (4C) 5.5 cm LV Stroke Volume (4C MOD) 61 ml Atria Name Value Normal LA Dimensions LA Volume (4C A-L) 62 ml LA Volume (BP A-L) 67 ml RA Dimensions RA Area (4C) 16.4 cm2 <=18.0 Report Signatures
[2024-10-19] MEDS: FLUTICASONE/UMECLIDIN/VILANTER 100-62.5-25 MCG ELLIPTA 1 PUFF INHALATION (08:13)
[2024-10-19] MEDS: PANTOPRAZOLE 40 MG TABLET PO (09:18)
[2024-10-19] MEDS: ENOXAPARIN 30 MG/0.3 ML SYRINGE SUB-Q (09:18)
[2024-10-19] MEDS: LOSARTAN POTASSIUM 100 MG TABLET PO (09:18)
[2024-10-19] MEDS: ASPIRIN 81 MG ENTERIC TABLET PO (09:19)
[2024-10-19] MEDS: ATORVASTATIN 40 MG TABLET PO (09:19)
[2024-10-19] MEDS: amLODIPine BESYLATE 2.5 MG TABLET PO (09:19)
[2024-10-19] MEDS: DICLOFENAC SOD 75 MG TABLET.EC PO ×2 (09:20→16:50)
[2024-10-19] MEDS: SITagliptin PHOSPHATE 100 MG TABLET PO (09:20)
[2024-10-19] MEDS: dilTIAZem HCL CD 180 MG CAP.24HR PO (09:25)
[2024-10-19] MEDS: SERTRALINE HCL 50 MG TABLET 100 MG PO (09:25)
--- NOTE | 2024-10-19 11:49 | P.CONCA_ITS ---
Assessment and Plan Assessment and plan (1) Atrial flutter with rapid ventricular response: Code(s): I48.92 - Unspecified atrial flutter Status: Acute (2) HLD (hyperlipidemia): Code(s): E78.5 - Hyperlipidemia, unspecified Status: Acute Plan 84-year-old woman with CKD stage IIIB, type 2 diabetes mellitus, COPD, hypertension and hyperlipidemia presented with shortness of breath found to have atrial flutter with rapid ventricular rate Atrial flutter with rapid ventricular rate -she converted overnight spontaneously -can discharge home on diltiazem 180 mg p.o. daily -continue Eliquis 5 mg p.o. b.i.d. Hypertension -continue losartan 100 mg p.o. daily -liberal blood pressure goes given her age Hyperlipidemia -atorvastatin 40 mg every evening Patient can follow-up with me in clinic. No further inpatient cardiac workup warranted at this time. History of Present Illness History of Present Illness Consult date/time: 10/19/24 11:49 Requesting physician: Candy Bo PA-C Reason For Visit: New onset atrial flutter RVR Narrative: 84-year-old woman with CKD stage IIIB, type 2 diabetes mellitus, COPD, hypertension and hyperlipidemia presented with shortness of breath found to have atrial flutter with rapid ventricular rate. She has been short of breath for several years now. The extent of her physical activity with the half a block before she starts to have some mild shortness of breath. She has not noted any decline in this. Denies any chest discomfort. Denies any orthopnea or lower extremity swelling. She is feeling much better compared to when she first came in to the ER. Review of Systems 2 Cardiovascular: Cardiovascular: Reports as per HPI Respiratory: Respiratory: Reports as per HPI [facility] Past Medical History Medical History (Updated 10/18/24 @ 22:55 by Candy Bo PA-C) Hypertension Chronic obstructive pulmonary disease Type 2 diabetes mellitus Hyperlipidemia Anxiety Tremor Pulmonary emphysema Lumbar spondylosis Insomnia Primary osteoarthritis, unspecified site Chronic kidney disease, stage III (moderate) Chronic GERD Surgical History Surgical History (Updated 10/18/24 @ 22:53 by Candy Bo PA-C) History of hysterectomy History of tonsillectomy History of cataract extraction History of Descemet membrane endothelial keratoplasty (DMEK) OS Family History Family History Father Family history of malignant neoplasm of stomach Family history of diabetes mellitus in first degree relative Mother Family history of malignant neoplasm of ovary Social History Social History (Updated 10/18/24 @ 22:54 by Candy Bo PA-C) Social History: Surrogate medical decision maker: Debbie Hayden, daughter. Code status: Full code. Smoking packs per day: 1 Smoking cigarettes per day: 20.0 Years smoked: 30 Smoking pack-years: 30.00 Smoking status: Former smoker Tobacco type: cigarettes Second hand tobacco smoke exposure: No Alcohol intake: never Substance use: never Substance use type: does not use Do You Feel Safe in your Home?: Yes Lack of Transportation: No Lack of Food: Never True Current Housing: I Have Housing Concerned About Future Housing: No Difficulty Paying Gas/Electric Bills: No Difficulty Paying for Meds: No Currently Unemployed: No Education: High School Diploma/GED Difficulty w/ Childcare or Family Care: No Living arrangements: alone Additional living arrangements comments: Assisted living at [facility] in [place]. She has a small dog. 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 Spiritual care concerns: No Meds Home Medications and Allergies Home Medications ?Medication ?Instructions ?Recorded ?Confirmed ?Type aspirin 81 mg tablet,delayed 81 mg PO DAILY 01/13/21 10/18/24 History release clonazepam 0.5 mg tablet 0.5 mg PO QHS #30 tabs 12/18/22 10/18/24 Rx atorvastatin 40 mg tablet 40 mg PO DAILY #90 tabs 01/19/24 10/18/24 Rx diclofenac sodium 75 mg 75 mg PO BID #180 tabs 01/19/24 10/18/24 Rx tablet,delayed release losartan 100 mg tablet 100 mg PO DAILY #90 tabs 01/19/24 10/18/24 Rx omeprazole 20 mg tablet,delayed 20 mg PO DAILY #90 tabs 01/19/24 10/18/24 Rx release sertraline 100 mg tablet 100 mg PO DAILY #90 tabs 01/19/24 10/18/24 Rx tramadol 50 mg tablet 50 mg PO BID PRN pain #60 tabs 01/19/24 10/18/24 Rx amlodipine 2.5 mg tablet 2.5 mg PO DAILY #90 tabs 01/25/24 10/18/24 Rx fluticasone fur. 100 mcg-umeclid 1 inh inhalation DAILY #180 ea 01/25/24 10/18/24 Rx 62.5 mcg-vilant 25 mcg inhalat.powder (Trelegy Ellipta) sitagliptin phosphate 100 mg 100 mg PO DAILY #90 tabs 04/28/24 10/18/24 Rx tablet (Januvia) zolpidem 10 mg tablet 10 mg PO QHS PRN insomnia #90 tabs 07/24/24 10/18/24 Rx Allergies Allergy/AdvReac Type Severity Reaction Status Date / Time Sulfa (Sulfonamide Allergy Unknown Unknown Verified 10/18/24 14:17 Antibiotics) sulfanilamide Allergy Unknown Unknown Verified 10/18/24 14:17 Vital Signs Vital Signs - 24 hr 10/18/24 14:19 10/18/24 15:35 10/18/24 15:35 Temperature 36.1 C L Pulse Rate 140 H 135 H Respiratory Rate 20 18 Blood Pressure 98/69 L 102/81 Pulse Oximetry 96 93 Oxygen Delivery Room Air Room Air 10/18/24 16:37 10/18/24 17:03 10/18/24 17:45 Temperature Pulse Rate 135 H 157 H 78 Respiratory Rate 16 16 Blood Pressure 108/76 112/78 104/66 Pulse Oximetry 99 97 Oxygen Delivery 10/18/24 17:45 10/18/24 19:57 10/18/24 20:31 Temperature Pulse Rate 73 68 75 Respiratory Rate 16 18 18 Blood Pressure 113/77 121/66 102/80 Pulse Oximetry 96 97 Oxygen Delivery 10/18/24 20:42 10/18/24 22:00 10/18/24 22:00 Temperature 36.4 C Pulse Rate 71 69 67 Respiratory Rate 16 18 Blood Pressure 117/76 126/75 126/75 Pulse Oximetry 96 98 Oxygen Delivery 10/18/24 22:00 10/18/24 23:24 10/19/24 00:00 Temperature 36.5 C Pulse Rate 61 Respiratory Rate 18 Blood Pressure 130/60 Pulse Oximetry 95 Oxygen Delivery Room Air Room Air 10/19/24 00:00 10/19/24 00:00 10/19/24 02:00 Temperature Pulse Rate 66 61 69 Respiratory Rate Blood Pressure 130/60 117/46 L Pulse Oximetry Oxygen Delivery 10/19/24 02:00 10/19/24 02:00 10/19/24 03:55 Temperature 36.8 C Pulse Rate 69 73 66 Respiratory Rate 18 Blood Pressure 117/46 L 124/44 L Pulse Oximetry 94 94 Oxygen Delivery 10/19/24 04:00 10/19/24 04:00 10/19/24 04:00 Temperature Pulse Rate 66 68 Respiratory Rate Blood Pressure 124/44 L Pulse Oximetry Oxygen Delivery Room Air 10/19/24 06:00 10/19/24 06:00 10/19/24 06:00 Temperature Pulse Rate 79 79 73 Respiratory Rate Blood Pressure 136/48 L 136/48 L Pulse Oximetry 95 Oxygen Delivery 10/19/24 08:00 10/19/24 08:00 10/19/24 08:00 Temperature Pulse Rate 66 67 66 Respiratory Rate 18 Blood Pressure 131/46 L Pulse Oximetry 95 Oxygen Delivery Room Air 10/19/24 08:00 10/19/24 08:06 10/19/24 10:00 Temperature 36.4 C Pulse Rate 66 66 70 Respiratory Rate 18 Blood Pressure 131/46 L 131/46 L Pulse Oximetry 95 Oxygen Delivery 10/19/24 10:00 10/19/24 10:15 10/19/24 10:30 Temperature 36.4 C Pulse Rate 66 70 70 Respiratory Rate 18 Blood Pressure 143/56 H 143/56 H Pulse Oximetry 95 Oxygen Delivery Exam 2 Const: General: comfortable HENMT: Mouth: Yes moist mucous membranes Eyes: EOM: EOMs intact bilaterally Resp: Effort & Inspection: normal respiratory effort Auscultation: clear to auscultation bilaterally Cardio: Rate: regular rate Rhythm: regular rhythm Extrem: General: no pedal edema Results Labs and Meds 10/18/24 15:28 10/19/24 03:56 Lab results: Cardiac Enzymes 10/18/24 10/18/24 10/18/24 Range/Units 15:28 19:06 22:13 AST 22 (14-36) U/L Troponin I < 0.012 < 0.012 < 0.012 (0.000-0.034) ng/mL CBC 10/18/24 Range/Units 15:28 WBC 8.4 (4.5-10.0) K/mm3 RBC 4.89 (4.2-5.4) M/mm3 Hgb 14.6 (12.0-15.0) g/dL Hct 44.3 (37.0-47.0) % Plt Count 167 (150-375) k/mm3 Lymph # (Auto) 0.92 (0.9-3.2) K/mm3 Nash # (Auto) 0.6 (0.1-0.6) K/mm3 Eos # (Auto) 0.1 (0-0.3) K/mm3 Baso # (Auto) 0.1 (0.0-0.1) K/mm3 Comprehensive Metabolic Panel 10/18/24 10/19/24 Range/Units 15:28 03:56 Sodium 143 141 (137-145) mmol/L Potassium 4.0 3.6 (3.4-5.0) mmol/L Chloride 108 H 107 (98-107) mmol/L Carbon Dioxide 22 26 (22-30) mmol/L BUN 20 H 20 H (7-17) mg/dL Creatinine 1.58 H 1.39 H (0.7-1.0) mg/dL Glucose 111 H 100 (65-110) mg/dL Calcium 9.4 9.0 (8.4-10.2) mg/dL AST 22 (14-36) U/L ALT 13 (6-35) U/L Alkaline Phosphatase 70 (38-126) U/L Total Protein 8.0 (6.3-8.2) g/dL Albumin 4.7 (3.5-5.1) g/dL Intake and Output 10/18/24 10/19/24 10/19/24 23:59 07:59 15:59 Intake Total 1024.8 280 50.2 Output Total 600 600 Balance 1024.8 -320 -549.8 Intake: IV 1024.8 40 50.2 Lactated Ringers 1,000 ml @ 1000 Wide Open IV CONT .Q0M STA Rx#: [id number] dilTIAZem 100 MG/100 ML 100 mg 24.8 40 50.2 In 100 ml @ 5 MG/HR 5 mls/hr IV CONT .Q20H STA Rx#:[id number] Oral 240 Output: Urine 600 600 Other: # Unmeasured Voids 1 Patient Weight 10/19/24 23:59 Weight 75.3 kg
--- NOTE | 2024-10-19 12:37 | P.PNIM_ITS ---
Progress Note: A&P Assessment and Plan (1) Atrial flutter with rapid ventricular response: Code(s): I48.92 - Unspecified atrial flutter Status: Acute (2) Hypertension: Code(s): I10 - Essential (primary) hypertension Status: Acute (3) Hyperlipidemia: Code(s): E78.5 - Hyperlipidemia, unspecified Status: Acute (4) Type 2 diabetes mellitus: Code(s): E11.9 - Type 2 diabetes mellitus without complications Status: Acute (5) Chronic kidney disease, stage III (moderate): Code(s): N18.30 - Chronic kidney disease, stage 3 unspecified Status: Acute (6) Chronic obstructive pulmonary disease: Code(s): J44.9 - Chronic obstructive pulmonary disease, unspecified Status: Acute Plan Atrial flutter with rapid ventricular rate -converted to sinus rhythm -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 daily -continue Eliquis 5 mg p.o. b.i.d. -TSH 3.070 -echocardiogram pending read Hypertension -continue losartan 100 mg p.o. daily -continue amlodipine 2.5 mg p.o. q.d. Hyperlipidemia -atorvastatin 40 mg every evening DM -sitagliptin 100 mg p.o. q.d. Subjective Date/time seen: 10/19/24 12:37 Interval history: Patient was evaluated the bedside along with her daughter. Patient reports she never filled the palpitation before yesterday was the 1st time. Patient denies any history of hyperthyroidism or heavy intake of caffeine. Other than DM, hypertension, TIA no other significant past medical history. Review of Systems Review of Systems: 12 systems were reviewed and are negativ e except for as per HPI. Exam Narrative: General: Well-developed female sitting up at side of bed in no distress. She appears a bit younger than her stated age. Weight: 77.3 kg. BMI: 29.3. HEENT: PERRL, EOMI. Sclera anicteric. Oral mucosa moist. Neck: Supple. No JVD obvious thyromegaly. Respiratory: Lungs are clear to auscultation bilaterally. Cardiovascular: Regular rate and rhythm with S1-S2. Gastrointestinal: Abdomen is soft, nontender, and nondistended with positive bowel sounds. Skin: Warm and dry. No rash or lesions on limited exam. Extremities: No cyanosis, clubbing, or significant edema. Radial and pedal pulses intact. Neurological: Alert. Cranial nerves 2-12 are grossly intact. No gross focal deficits to casual conversation. Psychiatric: Pleasant and cooperative with normal mood and affect. Judgment and insight intact. Objective Data Vital Signs Vital Signs: Vital Signs - 24 hr 10/18/24 14:19 10/18/24 15:35 10/18/24 15:35 Temperature 97 F L Pulse Rate 140 H 135 H Respiratory Rate 20 18 Blood Pressure 98/69 L 102/81 Pulse Oximetry 96 93 Oxygen Delivery Room Air Room Air 10/18/24 16:37 10/18/24 17:03 10/18/24 17:45 Temperature Pulse Rate 135 H 157 H 78 Respiratory Rate 16 16 Blood Pressure 108/76 112/78 104/66 Pulse Oximetry 99 97 Oxygen Delivery 10/18/24 17:45 10/18/24 19:57 10/18/24 20:31 Temperature Pulse Rate 73 68 75 Respiratory Rate 16 18 18 Blood Pressure 113/77 121/66 102/80 Pulse Oximetry 96 97 Oxygen Delivery 10/18/24 20:42 10/18/24 22:00 10/18/24 22:00 Temperature 97.6 F Pulse Rate 71 69 67 Respiratory Rate 16 18 Blood Pressure 117/76 126/75 126/75 Pulse Oximetry 96 98 Oxygen Delivery 10/18/24 22:00 10/18/24 23:24 10/19/24 00:00 Temperature 97.7 F Pulse Rate 61 Respiratory Rate 18 Blood Pressure 130/60 Pulse Oximetry 95 Oxygen Delivery Room Air Room Air 10/19/24 00:00 10/19/24 00:00 10/19/24 02:00 Temperature Pulse Rate 66 61 69 Respiratory Rate Blood Pressure 130/60 117/46 L Pulse Oximetry Oxygen Delivery 10/19/24 02:00 10/19/24 02:00 10/19/24 03:55 Temperature 98.2 F Pulse Rate 69 73 66 Respiratory Rate 18 Blood Pressure 117/46 L 124/44 L Pulse Oximetry 94 94 Oxygen Delivery 10/19/24 04:00 10/19/24 04:00 10/19/24 04:00 Temperature Pulse Rate 66 68 Respiratory Rate Blood Pressure 124/44 L Pulse Oximetry Oxygen Delivery Room Air 10/19/24 06:00 10/19/24 06:00 10/19/24 06:00 Temperature Pulse Rate 79 79 73 Respiratory Rate Blood Pressure 136/48 L 136/48 L Pulse Oximetry 95 Oxygen Delivery 10/19/24 08:00 10/19/24 08:00 10/19/24 08:00 Temperature Pulse Rate 66 67 66 Respiratory Rate 18 Blood Pressure 131/46 L Pulse Oximetry 95 Oxygen Delivery Room Air 10/19/24 08:00 10/19/24 08:06 10/19/24 10:00 Temperature 97.6 F Pulse Rate 66 66 70 Respiratory Rate 18 Blood Pressure 131/46 L 131/46 L Pulse Oximetry 95 Oxygen Delivery 10/19/24 10:00 10/19/24 10:15 10/19/24 10:30 Temperature 97.6 F Pulse Rate 66 70 70 Respiratory Rate 18 Blood Pressure 143/56 H 143/56 H Pulse Oximetry 95 Oxygen Delivery 10/19/24 12:05 Temperature 97.4 F L Pulse Rate 67 Respiratory Rate Blood Pressure 147/54 H Pulse Oximetry 99 Oxygen Delivery Intake/Output Intake/Output: Intake & Output 10/16/24 10/17/24 10/18/24 10/19/24 23:59 23:59 23:59 23:59 Intake Total 1024.8 330.2 Output Total 1200 Balance 1024.8 -869.8 Meds/Results Medications: Active Medications Generic Name Dose Route Start Last Admin Trade Name Freq PRN Reason Stop Dose Admin Acetaminophen 650 mg 10/18/24 22:55 Acetaminophen 325 Mg Tablet PO Q6H PRN Mild Pain (1-3) or Fever Amlodipine Besylate 2.5 mg 10/19/24 09:00 10/19/24 09:19 Amlodipine Besylate 2.5 Mg Tablet PO 2.5 mg DAILY KAYLAH Administration Apixaban 5 mg 10/19/24 11:50 Apixaban 5 Mg Tablet PO Q12HR KAYLAH Aspirin 81 mg 10/19/24 09:00 10/19/24 09:19 Aspirin 81 Mg Enteric Tablet PO 81 mg DAILY KAYLAH Administration Atorvastatin Calcium 40 mg 10/19/24 09:00 10/19/24 09:19 Atorvastatin 40 Mg Tablet PO 40 mg DAILY KAYLAH Administration Clonazepam 0.5 mg 10/18/24 23:05 10/18/24 23:35 Clonazepam (*Crx) 0.5 Mg Tablet PO Not Given QHS [facility] Dextrose 12.5 gm 10/18/24 22:55 Dextrose 50% 25 Gm/50 Ml Syringe IV PUSH PRN PRN Hypoglycemia Protocol Diclofenac Sodium 75 mg 10/19/24 09:00 10/19/24 09:20 Diclofenac Sod 75 Mg Tablet.Ec PO 75 mg BID KAYLAH Administration Diltiazem HCl 180 mg 10/19/24 09:10 10/19/24 09:25 Diltiazem Hcl Cd 180 Mg Cap.24hr PO 180 mg QAM KAYLAH Administration Fluticasone/Umeclidinium/Vilanterol 1 puff 10/19/24 09:00 10/19/24 08:13 Fluticasone/Umeclidin/Vilanter 100-62.5-25 Mcg Ellipta INHALATION 1 puff DAILY KAYLAH Administration Glucagon 1 mg 10/18/24 22:55 Glucagon For Inj 1 Mg Vial IM PRN PRN Hypoglycemia Protocol Glucose 15 gm 10/18/24 22:55 Glucose Oral Gel 15 Gm Of Glucse In 37.5 Gm Tube PO PRN PRN Hypoglycemia Protocol Dextrose 1,000 mls @ 100 mls/hr 10/18/24 22:55 Dextrose 5% 1,000 Ml IVPB PRN PRN Hypoglycemia Protocol Losartan Potassium 100 mg 10/19/24 09:00 10/19/24 09:18 Losartan Potassium 100 Mg Tablet PO 100 mg DAILY KAYLAH Administration Pantoprazole Sodium 40 mg 10/19/24 09:00 10/19/24 09:18 Pantoprazole 40 Mg Tablet PO 40 mg QAM KAYLAH Administration Perflutren Lipid Microsphere 0 ml 10/18/24 17:41 Perflutren Lipid Microspheres 1.5 Ml Vial Diluted To 10 Ml Total Volume IV PUSH 10/21/24 17:42 ONCE PRN adequate visualization Protocol Sertraline HCl 100 mg 10/19/24 09:00 10/19/24 09:25 Sertraline Hcl 50 Mg Tablet PO 100 mg DAILY KAYLAH Administration Sitagliptin Phosphate 100 mg 10/19/24 09:00 10/19/24 09:20 Sitagliptin Phosphate 100 Mg Tablet PO 100 mg DAILY KAYLAH Administration Tramadol HCl 50 mg 10/18/24 22:58 Tramadol Hcl (*Crx) 50 Mg Tablet PO BID PRN pain 4-10 Zolpidem Tartrate 10 mg 10/18/24 22:58 10/18/24 23:42 Zolpidem Tartrate (*Crx) 5 Mg Tablet PO 10 mg QHS PRN Administration insomnia Radiology Results: ITS Impressions Chest X-Ray 10/18/24 14:58 IMPRESSION: 1. Emphysema and mild chronic interstitial lung disease. Labs Labs: Laboratory Results - last 24 hr 10/18/24 10/18/24 10/18/24 15:26 15:28 16:54 WBC 8.4 RBC 4.89 Hgb 14.6 Hct 44.3 MCV 90.6 MCH 29.9 MCHC 33.0 RDW 12.5 Plt Count 167 MPV 10.5 H Immature Gran % (Auto) 0.5 Neut % (Auto) 80.1 H Lymph % (Auto) 10.9 L Duc[place]ne % (Auto) 6.5 Eos % (Auto) 1.4 Baso % (Auto) 0.6 Lymph # (Auto) 0.92 [place]ne # (Auto) 0.6 Eos # (Auto) 0.1 Baso # (Auto) 0.1 Abs Immat Gran (auto) 0.04 H Absolute Neuts (auto) 6.7 Absolute Nucleated RBC 0.000 Nucleated RBC % 0.0 D-Dimer 0.30 Sodium 143 Potassium 4.0 Chloride 108 H Carbon Dioxide 22 Anion Gap 13 H BUN 20 H Creatinine 1.58 H Estim Creat Clear Calc 23 Estimated GFR 31 L Glucose 111 H Calcium 9.4 Magnesium Total Bilirubin 1.0 AST 22 ALT 13 Alkaline Phosphatase 70 Troponin I < 0.012 Total Protein 8.0 Albumin 4.7 TSH (Reflex) 3.070 10/18/24 10/18/24 10/19/24 19:06 22:13 03:56 WBC RBC Hgb Hct MCV MCH MCHC RDW Plt Count MPV Immature Gran % (Auto) Neut % (Auto) Lymph % (Auto) Duc[place]ne % (Auto) Eos % (Auto) Baso % (Auto) Lymph # (Auto) [place]ne # (Auto) Eos # (Auto) Baso # (Auto) Abs Immat Gran (auto) Absolute Neuts (auto) Absolute Nucleated RBC Nucleated RBC % D-Dimer Sodium 141 Potassium 3.6 Chloride 107 Carbon Dioxide 26 Anion Gap 8 BUN 20 H Creatinine 1.39 H Estim Creat Clear Calc 26 Estimated GFR 36 L Glucose 100 Calcium 9.0 Magnesium 2.0 Total Bilirubin AST ALT Alkaline Phosphatase Troponin I < 0.012 < 0.012 Total Protein Albumin TSH (Reflex) Quality VTE Prophylaxis VTE prophylaxis: pharmacologic ordered Hospitalist MIPS Advance Care Plan I have confirmed that the patient's Advanced Care Plan is present, code status is documented, or surrogate decision maker is listed in patient medical record.: Yes Medication Reconciliation I have utilized all available resources to obtain, update and review the patients current medications (includes all prescriptions, OTC, herbals, cannabis, and nutritional supplements).: Yes
[2024-10-19] MEDS: APIXABAN 5 MG TABLET PO ×2 (13:08→20:29)
[2024-10-19] MEDS: prednisoLONE ACETATE 1% OPHTH 5 ML 1 DROP LEFT EYE (14:52)
[2024-10-19] MEDS: clonazePAM (*CRX) 0.5 MG TABLET PO (20:29)
--- NOTE | 2024-10-19 23:38 | PCRCNOTE ---
Patient refused apnea link tonight stating she does not snore and wakes up feeling refreshed. Patient does not believe she could have sleep apnea.
[2024-10-20] VITALS (10 sets, daily range): BP systolic 136–155; BP diastolic 49–71; PULSE 63–94; RESP 16–20; TEMP 36.3–36.7; O2SAT 93–97
[2024-10-20] MEDS: ZOLPIDEM TARTRATE (*CRX) 5 MG TABLET 10 MG PO (01:56)
--- NOTE | 2024-10-20 01:57 | PC.NURSE ---
The patient has been very restless and unable to sleep. She requested her Ambien. I discussed it with her due to it being very late. She insisted that she has been on it for years, and only needs about 6 hours of sleep when she takes it. I agreed to administer it if she agreed to additional fall precautions and taking it easy in the morning, which she did. Bed alarm is on. Patient is A&Ox4 and conversational at this time.
[2024-10-20 04:50] LABS: Immature Platelet Fraction Pct 3.6 % (0.9-11.2); Mean Corpuscular HGB Conc 32.4 g/dl (32-36); Mean Corpuscular Hemoglobin 29.5 pg (26-34); Mean Corpuscular Volume 90.9 fl (80-100); Mean Platelet Volume 10.8 fl (7.4-10.4); Platelet Count Result 125 k/mm3 (150-375); Red Blood Count 4.07 M/mm3 (4.2-5.4); Red Cell Distribution Width 12.2 % (11.5-14.5); White Blood Count 5.7 K/mm3 (4.5-10.0)
[2024-10-20 05:05] LABS: Alanine Aminotransferase 13 U/L (6-35); Albumin Level 4.1 g/dL (3.5-5.1); Alkaline Phosphatase 54 U/L (38-126); Anion Gap 7 mmol/L (4-12); Aspartate Amino Transferase 21 U/L (14-36); Bilirubin,Total 1.1 mg/dL (0.2-1.3); Blood Urea Nitrogen 22 mg/dL (7-17); Calcium 9.1 mg/dL (8.4-10.2); Carbon Dioxide 28 mmol/L (22-30); Chloride 106 mmol/L (98-107); Estimated CRCL calculation 22 ml/min; Estimated Glomerular Filt Rate 29; Glucose 111 mg/dL (65-110); Potassium 4.1 mmol/L (3.4-5.0); Sodium 141 mmol/L (137-145)
[2024-10-20] MEDS: SERTRALINE HCL 50 MG TABLET 100 MG PO (08:31)
[2024-10-20] MEDS: SITagliptin PHOSPHATE 100 MG TABLET PO (08:31)
[2024-10-20] MEDS: dilTIAZem HCL CD 180 MG CAP.24HR PO (08:31)
[2024-10-20] MEDS: PANTOPRAZOLE 40 MG TABLET PO (08:31)
[2024-10-20] MEDS: LOSARTAN POTASSIUM 100 MG TABLET PO (08:31)
[2024-10-20] MEDS: ATORVASTATIN 40 MG TABLET PO (08:31)
[2024-10-20] MEDS: APIXABAN 5 MG TABLET PO (08:31)
[2024-10-20] MEDS: amLODIPine BESYLATE 2.5 MG TABLET PO (08:31)
[2024-10-20] MEDS: ASPIRIN 81 MG ENTERIC TABLET PO (08:32)
[2024-10-20] MEDS: DICLOFENAC SOD 75 MG TABLET.EC PO (08:32)
[2024-10-20] MEDS: prednisoLONE ACETATE 1% OPHTH 5 ML 1 DROP RIGHT EYE (08:32)
[2024-10-20] MEDS: prednisoLONE ACETATE 1% OPHTH 5 ML 1 DROP LEFT EYE (08:32)
[2024-10-20] MEDS: FLUTICASONE/UMECLIDIN/VILANTER 100-62.5-25 MCG ELLIPTA 1 PUFF INHALATION (08:40)
--- NOTE | 2024-10-20 08:57 | PM.DS ---
DS: Admitting Diagnosis Discharge Date 10/19/2024 Admitting Diagnosis Shortness of breath and tachycardia DS: Discharge Diagnosis Discharge Diagnosis (1) Atrial flutter with rapid ventricular response: Code(s): I48.92 - Unspecified atrial flutter Status: Acute (2) Hypertension: Code(s): I10 - Essential (primary) hypertension Status: Acute (3) Hyperlipidemia: Code(s): E78.5 - Hyperlipidemia, unspecified Status: Acute (4) Type 2 diabetes mellitus: Code(s): E11.9 - Type 2 diabetes mellitus without complications Status: Acute (5) Chronic kidney disease, stage III (moderate): Code(s): N18.30 - Chronic kidney disease, stage 3 unspecified Status: Acute (6) Chronic obstructive pulmonary disease: Code(s): J44.9 - Chronic obstructive pulmonary disease, unspecified Status: Acute Plan Atrial flutter with rapid ventricular rate -converted to sinus rhythm -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 daily -continue Eliquis 5 mg p.o. b.i.d. -TSH 3.070 -echocardiogram pending read Hypertension -continue losartan 100 mg p.o. daily -continue amlodipine 2.5 mg p.o. q.d. Hyperlipidemia -atorvastatin 40 mg every evening DM -sitagliptin 100 mg p.o. q.d. DS: Summary Hospital Course Hospital Course: 84-year-old female with hypertension, hyperlipidemia, type 2 diabetes mellitus, chronic kidney disease stage III, chronic obstructive pulmonary disease, gastroesophageal reflux disease, and anxiety who presented to the emergency department via private vehicle at the direction of her doctor for evaluation of shortness of breath and tachycardia. The patient provides the following history. She had a routine appointment with her primary doctor today and was found to have a heart rate in the 130s to 140s. With further questioning she admitted that she had been feeling short of breath for the last several weeks if not longer. She has no sensations of racing heart or palpitations. She has no known history of thyroid disease, sleep apnea, or cardiac dysrhythmia. She also denies syncope, near syncope, fever, chest pain, pleuritic pain, orthopnea, paroxysmal nocturnal dyspnea, lower extremity edema, nausea, and vomiting. She drinks 1 caffeinated beverage a day and denies alcohol use. In the ED: Vital signs on arrival include a temperature of 97?, blood pressure 98/69, pulse 140, respiratory 20, SpO2 96% on room air. Labs were significant for a BUN of 20, creatinine 1.58, troponin less than 0.012, TSH 3.070. Chest x-ray showed emphysema and mild chronic interstitial lung disease. EKG showed atrial flutter with 2 to 1 conduction. She received a diltiazem bolus and was started on a diltiazem drip. She also received a dose of apixaban 5 mg x 1 with plans for possible cardioversion tomorrow after discussing with Cardiology. Within a couple of hours she converted to a normal sinus rhythm and EKG at that time showed findings of a possible anterior AK, probably old. She is being admitted in this setting for closer monitoring and Cardiology consultation. Was evaluated by the Cardiology. Patient converted to sinus rhythm overnight spontaneously. Patient was started on diltiazem 180 mg p.o. q.d. and started on Eliquis 5 mg p.o. b.i.d.. Patient needs to follow up with Cardiology in the clinic. Status at Discharge Cognitive/behavioral status at discharge: Stable Time Spent with Patient Time attestation: Total time spent providing and/or coordinating discharge services: 45 minutes Exam Narrative: General: Well-developed female sitting up at side of bed in no distress. She appears a bit younger than her stated age. Weight: 77.3 kg. BMI: 29.3. HEENT: PERRL, EOMI. Sclera anicteric. Oral mucosa moist. Neck: Supple. No JVD obvious thyromegaly. Respiratory: Lungs are clear to auscultation bilaterally. Cardiovascular: Regular rate and rhythm with S1-S2. Gastrointestinal: Abdomen is soft, nontender, and nondistended with positive bowel sounds. Skin: Warm and dry. No rash or lesions on limited exam. Extremities: No cyanosis, clubbing, or significant edema. Radial and pedal pulses intact. Neurological: Alert. Cranial nerves 2-12 are grossly intact. No gross focal deficits to casual conversation. Psychiatric: Pleasant and cooperative with normal mood and affect. Judgment and insight intact. DS: Data Data Completed and Pending Labs on day of discharge: Labs from last 24 hours 10/20/24 04:18 WBC 5.7 RBC 4.07 L Hgb 12.0 Hct 37.0 MCV 90.9 MCH 29.5 MCHC 32.4 RDW 12.2 Plt Count 125 L MPV 10.8 H % Immature Plt Fraction 3.6 Sodium 141 Potassium 4.1 Chloride 106 Carbon Dioxide 28 Anion Gap 7 BUN 22 H Creatinine 1.67 H Estim Creat Clear Calc 22 Estimated GFR 29 L Glucose 111 H Calcium 9.1 Total Bilirubin 1.1 AST 21 ALT 13 Alkaline Phosphatase 54 Total Protein 7.0 Albumin 4.1 Imaging Radiologist's impression: ITS Impressions Chest X-Ray 10/18/24 14:58 IMPRESSION: 1. Emphysema and mild chronic interstitial lung disease. Discharge Plan Discharge Attending physician on discharge: Rhys Bernal Consulting providers: Esther Zhong Discharging Clinician: Rhys Bernal Anticipated Discharge Date/Time: 10/20/24 12:23 Patient Disposition: Home, Self-Care Activity: as tolerated Diet: heart healthy Discharge Instructions: Patient started on Eliquis,please watch for any episodes of bleeding. Check blood pressure 1 to 2 times a day. Record and bring into your doctor for review. Call your doctor if your blood pressure is greater than 180/110 or less than 90/45. Walk with cane or other assist device. Take precautions to avoid falls. Rise slowly from a lying or sitting position. Pause before standing or walking. Contact your doctor or call 911 and come to the Emergency Room if you have any type of trauma, lightheadedness with standing or other worrisome symptoms. Avoid NSAIDs (ibuprofen, naproxen, Aleve). Tylenol is safe to take. Follow-up with your primary care provider in 1-2 weeks. Please call for appointment. Follow-up with Cardiology in 2-4 weeks. Please call for an appointment. Thank you for using [facility] for your health care needs. Patient Instructions: Antibiotic Form, Apixaban (By mouth), Atrial Flutter (GEN) Patient Language: Czech Stand Alone Forms: General Discharge Information Follow-up/Referrals: Parker Mariee MD [Primary Care Provider] - Esther Zhong MD [Physician] - Discharge Medications: New diltiazem HCl 180 mg Capsule,Ext.Rel 24h Degradable 180 mg PO QAM Qty: 30 0RF Eliquis 5 mg Tablet 5 mg PO Q12HR Qty: 30 0RF Continued aspirin 81 mg tablet,delayed release (DR/EC) 81 mg PO DAILY amlodipine 2.5 mg tablet 2.5 mg PO DAILY Qty: 90 3RF Trelegy Ellipta 100-62.5-25 mcg blister with device 1 inh inhalation DAILY Qty: 180 3RF prednisolone acetate 1 % drops,suspension 1 drp LEFT EYE DAILY Patient Comments: Right eye Wednesday, Wednesday, Wednesday clonazepam 0.5 mg tablet 0.5 mg PO QHS Qty: 30 0RF Rx Instructions: administer 30 minutes before bedtime atorvastatin 40 mg tablet 40 mg PO DAILY Qty: 90 3RF losartan 100 mg tablet 100 mg PO DAILY Qty: 90 3RF omeprazole 20 mg tablet,delayed release (DR/EC) 20 mg PO DAILY Qty: 90 3RF sertraline 100 mg tablet 100 mg PO DAILY Qty: 90 3RF tramadol 50 mg tablet 50 mg PO BID PRN (Reason: pain) Qty: 60 0RF Januvia 100 mg tablet 100 mg PO DAILY Qty: 90 1RF zolpidem 10 mg tablet 10 mg PO QHS PRN (Reason: insomnia) Qty: 90 0RF Discontinued diclofenac sodium 75 mg tablet,delayed release (DR/EC) 75 mg PO BID Qty: 180 3RF Date of admission: 10/18/24 17:41 Primary Care Provider: Parker Mariee Admitting Provider: Rhys Bernal Attending physician on admission: Rhys Bernal Condition: Stable
== END 2024-10-20 13:35 | disposition home or self-care (01) | DRG 310 ==
LOC: ANHED 20:09 → ANHIMU 20:22
PROVIDERS: Physician Assistant; Admitting Provider General Practice; Emergency Provider Student in an Organized Health Care Education/Training Program; PCP Family Medicine; Visit Provider General Practice
DX: I48.92 Unspecified atrial flutter (principal); I12.9 Hypertensive chronic kidney disease with stage 1 through stage 4 chronic kidney disease, or unspecified chronic kidney disease; E11.22 Type 2 diabetes mellitus with diabetic chronic kidney disease; E78.5 Hyperlipidemia, unspecified; F41.1 Generalized anxiety disorder; N18.32 Chronic kidney disease, stage 3b; J43.9 Emphysema, unspecified; K21.9 Gastro-esophageal reflux disease without esophagitis; Z79.01 Long term (current) use of anticoagulants; Z79.82 Long term (current) use of aspirin; Z79.84 Long term (current) use of oral hypoglycemic drugs; Z87.891 Personal history of nicotine dependence
CPT/HCPCS: 36415; 71046; 80048; 80053; 83735; 84443; 84484; 85025; 85027; 85055; 85380; 93005; 93306; 94640; 96374; 96375; 99285; A9270; J1650; J7120

== ENCOUNTER 2024-12-08 11:27 | Outpatient (CLI) | payer MEDICARE, OTHER, SELFPAY ==
[2024-12-08 13:08] LABS: Add Urine Microscopic? YES; Appearance Urine Cloudy (Clear); Bacteria Urine 2+ /hpf; Bilirubin Urine Negative (Negative); Blood Urine Negative (Negative); Color Urine Yellow (Yellow); Glucose Urine UA Negative (Negative); Ketones Urine Negative (Negative); Leukocyte Esterase Ur 3+ LEU/UL (Negative); Nitrate Urine Negative (Negative); Non Pathogenic Casts 0-2; Protein Urine Negative (Negative); RBC Urine 0-2 /hpf (0-2); Squamous Epithelial Cell Urine None Seen /hpf (Few); Urobilinogen Urine 0.2 mg/dL (<2.0); WBC Urine >100 /hpf (0-3)
[2024-12-08 13:35] LABS: Alanine Aminotransferase 9 U/L (6-35); Albumin Level 4.6 g/dL (3.5-5.1); Alkaline Phosphatase 72 U/L (38-126); Anion Gap 9 mmol/L (4-12); Aspartate Amino Transferase 22 U/L (14-36); Bilirubin,Total 0.7 mg/dL (0.2-1.3); Blood Urea Nitrogen 17 mg/dL (7-17); Calcium 9.3 mg/dL (8.4-10.2); Carbon Dioxide 28 mmol/L (22-30); Chloride 104 mmol/L (98-107); Estimated Glomerular Filt Rate 37; Glucose 127 mg/dL (65-110); Potassium 4.2 mmol/L (3.4-5.0); Sodium 141 mmol/L (137-145)
[2024-12-08 13:50] LABS: Hemoglobin A1C 6.1 % (<5.7)
[2024-12-08 13:53] LABS: Creatinine Urine 73.1 mg/dL
[2024-12-08 13:58] LABS: MALB Creatinine Ratio 14.5 mg/g (0-30); Microalbumin Urine Random 10.6 mg/L (0-16.7)
--- OUTSIDE RECORDS SUMMARY | 2024-12-09 12:46 | XMS_ITS | Continuity of Care Document ---
Author Organization [facility] Address [address] [place] [address] Phone Care Team Providers Care Lead Retail Sales Associate Name Role Phone Shay Nelson Unavailable Unavailable Procedures Procedure Date Office/outpatient Visit, Est Dilated Retinal Exam W Interpretation Au g Office/outpatient Visit, Est Dilated Retinal Exam W Interpretation Ma No Script Advance Directives Directive Yes / No Effective Date File Name No Information Encounters Encounter Description Practice Location Reason(s) For Visit Diagnoses Date Provider Providers Copied on Encounter Office/outpat ient Visit, [facility], [id number] [place] [address] [address], [place], [place], [id number], [place] tel:[phone] [facility] No Information 2-201 0 Leslie Day. [facility] [address], [place], [place], [facility], [place]. tel:[phone] Office/outpat ient Visit, [facility], [address], [place], [place], [id number], [place] tel:[phone] [facility] No Information 9-200 9 Tomeka Merrillhil. [address] [facility], [place], [place], [facility], [place]. tel:[phone] Family History Family Member Type Diagnosis Age At Onset No Information Payers Payer name Insurance type Covered alliance party ID Sarah Beth garzas) [place] [id number] [facility] [id number] Social History Type Description Quantity Date Captured [...]
--- OUTSIDE RECORDS SUMMARY | 2024-12-09 12:46 | XMS_ITS | Patient Health Record ---
Author Organization [facility] Billing Info Address [address] [place], [place] [address] [address] Care Team Providers Care Smelting Engineer Name Role Phone YUDI, DR CARLOS Dove Primary Care Provider BERNADETTE Dominique [phone] Allergies Allergen (clinical drug ingredient) Drug/Non Drug Allergy documented on EMR Reaction Allergy Type Onset Date Status Sulfa Unknown Drug Allergy Active Reason For Referral No Information Medications Medication SIG (Take, Route, Frequency, Duration) Notes Start Date End Date Status Celebrex 200 MG 1 capsule Orally Twi ce a day Active Atorvastatin Calcium 40 MG 1 tablet Oral ly Once a day Active Januvia 100 MG 1 tablet Orally Once a day Active Aspirin 81 MG 1 tablet Orally Once a day Active Omeprazole 20 MG 2 capsules Orally On ce a day Active Losartan Potassium 100 MG 1 tablet Orall y Once a day Active Voltaren 1 % as directed Transder mal for 30 days 12/17/2015 Active Lortab 7.5-325 MG 1 tablet as needed O rally every 6 hrs 07/23/2017 Active Immunizations Vaccine Route Administration Date Status Comme nts FLU (Past vaccine of unknown type) Unknown 11/26/2015 R efused PNEUMOCOCCAL (Past vaccine o f unknown type) Unknown 11/26/2015 Refused Social History Tobacco Use: Social History Observation Description Date Details (start date - stop date) Never Smoker NA - NA Tobacco Status: Question Answer Notes Patient is a never smoker Problems Problem Type SNOMED Code ICD Code Onset Dates Problem Status W/U Status Risk Notes Problem 50874628 Sprain of metacarpophalangeal joint of right thumb, initial encounter (S63.646H) Active confirmed Problem 142791600 History of falli ng (Z91.81) Active confirmed Problem 90625935 Carpal tunnel syndrome, right (G56.01) Active confirmed Problem 553086000 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) Active confirmed Problem 04857766 Type 2 diabetes mellitus without complication (E11.9) Active confirmed Problem 095998628 Trigger middle f elida of left hand (M65.332) Active confirmed Problem 59159746 Essential hypertension, hypertension with unspecified goal (I10) Active confirmed Problem 42709645 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 [address] [address] [place], [place] [id number] WinLeighann greenwood Self - patient is the insured 6 6 Medications Administered Medication Instructions Date of Administration Dosage Notes Betamethasone Sodium Phos/Betamethasone Acetate (Celestone Soluspan) 11/26/2015 6 mg left long Lidocaine for injection (Non-IV) 11/26/2015 4 mL left hand 3rd digit Medical (General) History Medical History History ICD Code Hypertension Diabetes mellitus Surgical History Surgery Date(Month/Year) back surgery 2012
--- OUTSIDE RECORDS SUMMARY | 2024-12-09 12:46 | XMS_ITS | Clinical Summary ---
Author Organization [facility] Address [address] [place] [address] Care Team Providers Care Chute Tapper Name Role Phone Parker Mariee MD Primary Care Provider Allergies Active Allergy Reactions Criticality Noted Date Comments Sulfabenzamide Rash Medium 10/14/2016 Medications Eliquis 5 mg tablet Take 1 tablet (5 mg total) by mouth 2 (two) times a day 10/30/2024 Active DILT-XR 180 mg 24 hr capsule Take 1 capsule (180 mg total) by mouth every morning 11/21/2024 Active aspirin 81 mg enteric coated tablet Take 1 tablet (81 mg total) by mouth daily Active clonazePAM (KlonoPIN) 0.5 mg tablet 0 11/06/2024 Active atorvastatin (LIPITOR) 40 mg tablet Take 1 tablet (40 mg total) by mouth daily Active losartan (COZAAR) 100 mg tablet Take 1 tablet (100 mg total) by mouth daily Active omeprazole (PriLOSEC) 20 mg capsule Take 1 capsule (20 mg total) by mouth daily Active SITagliptin phosphate (JANUVIA) 100 mg tablet Take 1 tablet (100 mg total) by mouth daily Active zolpidem (AMBIEN) 10 mg tablet as needed 0 10/10/2024 Active traMADoL (ULTRAM) 50 mg tablet Take 1 tablet (50 mg total) by mouth as needed for pain Active sertraline (ZOLOFT) 100 mg tablet Take 1 tablet (100 mg total) by mouth daily Active amLODIPine (NORVASC) 2.5 mg tablet Take 1 tablet (2.5 mg total) by mouth daily Active fluticasone-ume clidin-vilanter (TRELEGY ELLIPTA) 100-62.5-25 mcg inhaler Inhale 1 puff daily Active Active Problems No known active problems Encounters Date Type Department Care Team Description 12/04/2024 10:00 AM CDT Office Visit [facility] Medical Group Cardiology [address] [place] [phone] Jeanette Duffy NP Paroxysmal atrial flutter (HCC) (Primary Dx); Chronic anticoagulation; Essential hypertension; Hospital discharge follow-up 10/26/2024 Orders Only [facility] Medical [facility] Cardiology [address] [place] [address] Zak Rojas MD from Last 3 Months Social History Tobacco Use Types Packs/Day Years Used Date Smoking Tobacco: Never Tobacco Cessation:Counseling Given: Not Answered Comments Unknown Sex and Gender Information Value Date Recorded Sex Assigned at Not on file Legal Sex Female 10:56 AM ELIGIBILITY SERVICES REPRESENTATIVE Gender Identity Not on file Sexual Orientation Not on file Obstetrics History Last Filed Vital Signs Vital Sign Reading Time Taken Comments Blood Pressure 116/52 12/04/2024 10:04 AM CDT Pulse 76 12/04/2024 10:04 AM CDT Temperature 36.1 C (97 F) 03/21/2020 8:41 AM CDT Respiratory Rate - - Oxygen Saturation 93% 12/04/2024 10:04 AM CDT Inhaled Oxygen Concentration - - Weight 75.8 kg (167 lb) 12/04/2024 10:04 AM CDT Height 167.6 cm (5' 6 ) 12/04/2024 10:04 AM CDT Body Mass Index 26.95 12/04/2024 10:04 AM CDT Plan of Treatment Health Maintenance Due Date Last Done Comments Depression Screening 1940 Fall Risk Assessment 1940 Osteoporosis Screening-Bone Density Scan 1940 DTaP/Tdap/Td Vaccine (1 - Tdap) 1950 Hepatitis B Screening 1957 Zoster Vaccine (1 of 2) 1989 Well Visit 65+ 2004 Pneumococcal vaccine 65+ (2 of 2 - PPSV23) 05/15/2019 05/15/2018 Influenza Vaccine Completed 06/19/2024, , 05/15/2018, Additional history exists Procedures Procedure Name Priority Date/Time Associated Diagnosis Comments CARDIOLOGY DOCUMENT SCAN Routine 025 10:18 AM CDT from Last 3 Months Results * Cardiology Document Scan (10/19/2024 10:18 AM CDT) Anatomical Region Laterality Modality Other Zak Rojas MD CV CARDIAC SERVICES PROCEDURES F inal Result from Last 3 Months Insurance [email or web address] MEDICARE PPO [address] [place] [address] [email or web address] MEDICARE PPO [facility] [place] [address] Care Teams Chute Tapper Relationship Specialty Start Date End Date Parker Mariee MD [address] [facility] [address] [place] [address] PCP - General 02/16/14
--- OUTSIDE RECORDS SUMMARY | 2024-12-09 12:46 | XMS_ITS | Referral Summary ---
Author Organization [facility] [place] Address [address] [place] [address] Care Team Providers Care Teacher Education Instructor Name Role Phone Parker Mariee MD Primary Care Provider Encounters Date Type Department Care Team Description 12/04/2024 10:00 AM CDT Office Visit [facility] Medical Group Cardiology [address] [place] [address] Jeanette Duffy NP Paroxysmal atrial flutter (HCC) (Primary Dx); Chronic anticoagulation; Essential hypertension; Hospital discharge follow-up 10/26/2024 Orders Only [facility] Medical [facility] Cardiology [address] [facility] [address] [place] [address] Zak Rojas MD from Last 3 Months Allergies Active Allergy Reactions Criticality Noted Date [...] Active Active Problems No known active problems Social History Tobacco Use Types Packs/Day Years Used Date Smoking Tobacco: Never Tobacco Cessation:Counseling Given: Not Answered Comments Unknown Sex and Gender Information Value Date Recorded Sex Assigned at Not on file Legal Sex Female 10:56 AM RIM BUSTER Gender Identity Not on file Sexual Orientation [...] 12/04/2024 10:04 AM CDT Plan of Treatment Not on file Procedures Procedure Name Priority Date/Time Associated Diagnosis Comments CARDIOLOGY DOCUMENT SCAN Routine 025 10:18 AM CDT from Last 3 Months Results * Cardiology Document Scan (10/19/2024 10:18 AM CDT) Anatomical Region Laterality Modality Other Zak Rojas MD CV CARDIAC SERVICES PROCEDURES F inal Result from Last 3 Months Insurance [employer] [place] [address] [email or web address] [place] [address] Care Teams Teacher Education Instructor Relationship Specialty Start Date End Date Parker Mariee MD [address] [facility] [address] [place] [address] PCP - General 02/16/14
--- OUTSIDE RECORDS SUMMARY | 2024-12-09 12:46 | XMS_ITS | Clinical Summary ---
Author Organization [facility] Address Formerly [facility], [address] [place] [address] Care Team Providers Care Instructor Ballroom Dancing Name Role Phone Parker Mariee MD Primary Care Provider [phone] Allergies Active Allergy Reactions Criticality Noted Date Comments Sulfa Antibiotics Rash Low 09/15/2024 Medications No known medications Encounters Date Type Department Care Team Description 09/15/2024 8:[address] - 09/15/2024 9:[address]ER Emergency [facility] Emergency Room [id number] [place] [address] David Lawson MD Flu Like Symptoms Discharge [...] Sex Assigned at Female 09/15/2024 8:[address]ER Legal Sex Female 10:40 AM CDT Gender Identity Not on file Sexual Orientation Not on file Last Filed Vital Signs Vital Sign Reading Time Taken Comments Blood Pressure 166/79 09/15/2024 9:[address]ADER Pulse 90 09/15/2024 9:[address]ER Temperature 36.8 C (98.2 F) 09/15/2024 9:[address]ER Respiratory Rate 18 09/15/2024 9:[address]ER Oxygen Saturation 96% 09/15/2024 9:[address]ER Inhaled Oxygen Concentration - - Weight - - Height - - Body Mass Index - - Plan of Treatment Health Maintenance Due Date Last Done Comments DTaP, Tdap and Td Vaccines ( 1 - Tdap) 1958 Pneumococcal Vaccine: 50+ Ye ars (1 of 1 - PCV) 1989 Zoster Vaccines (1 of 2) 1989 Annual Medicare Wellness Visit 2004 RSV Immunization or 60+ Years (1 - 1-dose 75+ series) 2014 COVID-19 Vaccine ( - 2023-2 5 season) 2024 Meningococcal B Vaccine Aged Out No [...] XR CHEST PA+LAT STAT 09/15/2024 8:[address]ER CORONAVIRUS (COVID 19) STAT 09/15/2024 8:[address]ER INFLUENZA A & B STAT 09/15/2024 8:[address]ER from Last 3 Months Results * XR CHEST PA+LAT (09/15/2024 8:[address]ER) Anatomical Region Laterality Modality Chest Radiographic Lizzette ging 09/15/2024 8:[address]ER Impressions 09/15/2024 9:[address] IMPRESSION: Findings suggestive of trace bilateral pleural effusions with associated atelectasis. Referred By: Interpreted By: Jason Shen MD, 09/15/2024 8:56 PM Narrative 09/15/2024 9:[address] [facility] [address] [place] [address] Examination: XR CHEST PA+LAT Exam time: 09/15/2024 [...] Procedure Note Jason Shen MD - 09/15/2024 [facility] [address] [place] [address] Examination: XR CHEST PA+LAT Exam time: 09/15/2024 [...] * CORONAVIRUS (COVID-19) MOLECULAR (09/15/2024 8:[address]ER) CORONAVIRUS SARS COV 2 RNA NEGATIVE NEGATIVE 09/15/2024 8:[address] [facility] Comment: NEGATIVE RESULTS DO NOT RULE [...] SARS-COV-2. SPECIMEN TYPE NASAL 09/15/2024 8:[address] [facility] NASOPHARYNGEAL SWAB / Unknown 09/15/2024 8:[address]ER us David Lawson MD MICROBIOLOGY - GENERAL ORDERABLE S Final Result [facility] [address] [place] [address], [place] [phone] * (ABNORMAL) INFLUENZA A & B (09/15/2024 8:[address]ER) SPECIMEN TYPE NASOPHARYNGEAL SWAB 09/15/2024 8:[address]ADER [facility] INFLUENZA A POSITIVE(A) NEGATIVE 09/15/2024 8:[address]ADER [facility] INFLUENZA B NEGATIVE NEGATIVE 09/15/2024 8:[address]ADER [facility] NASAL NASOPHARYNGEAL SWAB / Unknown 09/15/2024 8:[address] David Lawson MD MICROBIOLOGY - GENERAL ORDERABLE S Final Result Performing Organization Address [facility]State/[facility] Co de Phone Number [facility] [address] [place] [address], [place] [phone] from Last 3 Months [facility] Care Teams Instructor Ballroom Dancing Relationship Specialty Start Date End Date Parker Mariee MD [address] [facility] [address] [place] [address] PCP - General FAMILY PRACTICE 02/08/18
== END 2024-12-08 11:28 | disposition home or self-care (01) ==
PROVIDERS: PCP Family Medicine; Visit Provider Family Medicine
DX: E11.29 Type 2 diabetes mellitus with other diabetic kidney complication (principal); I12.9 Hypertensive chronic kidney disease with stage 1 through stage 4 chronic kidney disease, or unspecified chronic kidney disease; N18.30 Chronic kidney disease, stage 3 unspecified; E78.5 Hyperlipidemia, unspecified; Z00.00 Encounter for general adult medical examination without abnormal findings
CPT/HCPCS: 36415; 80053; 81001; 82043; 83036

== ENCOUNTER 2025-02-14 12:57 | Outpatient (CLI) | payer MEDICARE, OTHER, SELFPAY ==
--- NOTE | ~2025-02-14 | XR_ITS ---
AP view of the pelvis and AP and lateral views of the right hip Clinical history: Pain Findings: No acute fracture or dislocation is seen. Osseous alignment is anatomic. Bilateral hip and SI joint spaces are preserved. Soft tissues are unremarkable. Impression: No significant abnormality is seen. Reviewed, dictated and finalized at [facility]. Impression: No significant abnormality is seen.
--- OUTSIDE RECORDS SUMMARY | 2025-02-14 13:03 | XMS_ITS | Referral Summary ---
Author Organization [facility] Address [address] [place] [address] Care Team Providers Care Building Construction Estimator Name Role Phone Parker Mariee MD Primary Care Provider Encounters Date Type Department Care Team Description 12/04/2024 10:00 AM CDT Office Visit [facility] Medical Group Cardiology [address] [place] [address] Jeanette Duffy NP Paroxysmal atrial flutter (HCC) (Primary Dx); Chronic anticoagulation; Essential hypertension; Hospital discharge follow-up from Last 3 Months Allergies Active Allergy [...] on file Legal Sex Female 10:56 AM GAMEMASTER Gender Identity Not on file Sexual Orientation [...] 10:04 AM CDT Height 167.6 cm (5' 6) 12/04/2024 10:04 AM CDT Body Mass Index 26.95 12/04/2024 10:04 AM CDT Plan of Treatment Not on file Insurance [employer] CHOICE [place] [address] [employer] [place] [address] Care Teams Building Construction Estimator Relationship Specialty Start Date End Date Parker Mariee MD [address] [place] [address] PCP - General 02/16/14
--- OUTSIDE RECORDS SUMMARY | 2025-02-14 13:03 | XMS_ITS | Clinical Summary ---
Author Organization [facility] Address [address] [place] [address] Care Team Providers Care Product Marketer Name Role Phone Parker Mariee MD Primary [...] Description 12/04/2024 10:00 AM CDT Office Visit [facility] Medical Group Cardiology [address] [place] [address] Jeanette Duffy NP Paroxysmal atrial flutter (HCC) (Primary Dx); Chronic anticoagulation; Essential hypertension; Hospital discharge follow-up from Last 3 Months Social History Tobacco Use Types Packs/Day Years Used Date Smoking Tobacco: Never Tobacco Cessation:Counseling Given: Not Answered Comments Unknown Sex and Gender Information Value Date Recorded Sex Assigned at Not on file Legal Sex Female 10:56 AM STILL CLEANER TUBE Gender Identity Not on file Sexual Orientation [...] Completed 06/19/2024, , 05/15/2018, Additional history exists Insurance [employer] [place] [address] [employer] [place] [address] Care Teams Product Marketer Relationship Specialty Start Date End Date Parker Mariee MD [address] [facility] [address] [place] [address] PCP - General 02/16/14
--- OUTSIDE RECORDS SUMMARY | 2025-02-14 13:03 | XMS_ITS | Clinical Summary ---
Author Organization [facility] Address [facility] [place] [address] Care Team Providers Care Turning Sander Tender Name Role Phone Parker Mariee MD Primary Care Provider [phone] Allergies Active Allergy Reactions Criticality Noted Date Comments Sulfa Antibiotics Rash Low 09/15/2024 Medications No known medications Family History Medical History Relation Comments Breast [...] Sex Assigned at Female 09/15/2024 8:13 PM YARDING ENGINEER Legal Sex Female 10:40 AM CDT Gender Identity Not on file Sexual Orientation Not on file Last Filed Vital Signs Vital Sign Reading Time Taken Comments Blood Pressure 166/79 09/15/2024 9:13 PM YARDING ENGINEER Pulse 90 09/15/2024 9:13 PM YARDING ENGINEER Temperature 36.8 C (98.2 F) 09/15/2024 9:13 PM YARDING ENGINEER Respiratory Rate 18 09/15/2024 9:13 PM YARDING ENGINEER Oxygen Saturation 96% 09/15/2024 9:13 PM YARDING ENGINEER Inhaled Oxygen Concentration - - Weight - [...] 2014 COVID-19 Vaccine (2023-2 5 season) 2024 Meningococcal B Vaccine Aged Out No l onger eligible based on patient's age to complete this topic Meningococcal Vaccine Aged Out No luan christopher eligible based on patient's age to complete this topic RSV Immunizations Under 20 Months Aged Out No longer eligible based on patient's age to complete this topic [facility] Care Teams Turning Sander Tender Relationship Specialty Start Date End Date Parker Mariee MD [address] [place] [address] PCP - General FAMILY PRACTICE 02/08/18
--- OUTSIDE RECORDS SUMMARY | 2025-02-14 13:03 | XMS_ITS ---
Author Organization [facility] Address [address] [facility] [address] [place], [place] [address] Care Team Providers Care Wafer Polishing Worker Name Role Phone MANISH WALLACEIC Unavailable [phone] Parker Mariee Unavailable Unavailable Allergies Allergen (clinical drug ingredient) Drug/Non Drug Allergy documented on EMR Reaction Allergy Type Onset Date Status Product containing sulfonamide (product) (uncoded) Unknown Allergy 05/12/2021 active REASON FOR VISIT Patient presents for at-risk foot care . The patient has painful toenails and calluses that are causing difficulty with ambulation and shoegear. The onset is gradual Medications Medication SIG (Take, Route, Frequency, Duration) Notes Start Date End Date Status Eliquis Active Encounters Encounter Location Date Provider Diagnosis [facility] [address] [place], [place] [id number] 01/29/2025 ALEXEI BARAJAS Tinea unguium B35.1 ; Acquired keratosis [keratoderma] palmaris et plantaris L85.1 ; Atherosclerosis of picayune arteries of extremities with intermittent claudication, bilateral legs I70.213 ; Pain in right foot M79.671 and Pain in left foot M79.672 Assessments Encounter Date Diagnosis (ICD Code) Assessment Notes Treatment Notes Treatment Clinical Notes Section Notes 01/29/2025 Tinea unguium (ICD-10 - B35.1) Nails 1-5 Bilateral were debrided extensively with nail nippers and emery board, reducing length and girth to pink healthy tissue with any subungual debris and necrotic tissue removed 01/29/2025 Acquired keratosis [keratoderma] palmaris et plantaris (ICD-10 - L85.1) A total of 2 corns or calluses, as described in the note above, were cut and pared utilizing a #15 blade 01/29/2025 Atherosclerosis of picayune arteries of extremities with intermittent claudication, bilateral legs (ICD-10 - I70.213) 01/29/2025 Pain in right foot (ICD-10 - M79.671) 01/29/2025 Pain in left foot (ICD-10 - M79.672) Plan Of Treatment Treatment Notes Assessment Notes Tinea unguium Nails 1-5 Bilateral were debrided extensively with nail nippers and emery board, reducing length and girth to pink healthy tissue with any subungual debris and necrotic tissue removed Acquired keratosis [keratode rma] palmaris et plantaris A total of 2 corns or calluses, as described in the note above, were cut and pared utilizing a #15 blade Next Appt Details Follow Up: 10 - 12 weeks, Re ason: At-Risk Foot care, sooner if problems develop. Provider Name:ALEXEI BARAJAS, 01:20:00 PM, [address], [address], [id number], Progress Notes * NARCISO BLACKWOOD LDOB:[birth year] (84 yo F)Acc No.[id number]:01/29/2025 Patient: NARCISO JIMENEZ Provider: Adilene Barajas DPM :1940 A ge:84 Y S ex:Female Date:01/29/2025 Address:[address], [facility] Subjective: * Chief Complaints: * 1 . Patient presents for at-risk foot care . The patient has painful toenails and calluses that are causing difficulty with ambulation and shoegear. The onset is gradual. * HPI: H PI: General care P atient presents to the office for diabetic foot care. Patient states that their nails are thickened, elongated and painful. Patient states that it is aggravated by shoe gear. Onset is gradual., Patient is taking prescription blood thinners., Date last seen by Dr. Mariee was October 2024., Initials mf. * ROS: G eneral / Constitutional: Patient denies c hills, fever, weight loss. ? M usculoskeletal: Patient denies w eakness, broken foot bone. ? P eripheral Vascular: Patient denies p ain / cramping in legs after exertion, ulceration of feet. S kin: Patient complains of f ungal nails, nail changes, calluses and corns. N eurologic: Patient denies b alance difficulty, confusion, difficulty speaking, dizziness. * Medical History: A judy reflux, GERD, Arthritis, Back Trouble, Diabetic. * Family History: F ather: Cancer. M other: Cancer. * Social History: M igrated Social History: M igrated Social History: History of tobacco use : , Smoking Status : Former tobacco user. D rugs/Alcohol: D o you drink alcohol?: No. * Medications: Isrrael Holloway , Medication List reviewed and reconciled with the patient * Allergies: P roduct containing sulfonamide (product): Allergy - Onset Date 05/12/2021. Objective: * Vitals: * Examination: P hysical Examination: General appearance: A lert, pleasant, well-nourished and in no acute distress. D ermatologic: Skin findings: S kin is thin, atrophic and lacking pedal hair. Hypertrophic / hyperkeratotic lesion: p lantar-medial aspect of the left and right hallux. Nail pathology: N ails 1, 2, 3, 4, and 5 bilateral are elongated, thick, discolored, and dystrophic with subungual debris. They are painful to palpation. ? V ascular: Dorsalis pedis pulse: 1 /4 b ilateral. Posterior tibial pulse: 0 /4 bilateral. Capillary refill: g reater than 3 seconds. Edema: N o edema bilateral. N eurologic: [place] 5.07 monofilament I ntact protective sensation via 5.07 g swmf bilateral. Gross sensation G rossly intact to light touch. There is negative Tinel's sign. M usculoskeletal: Muscle Strength M uscle strength is 5/5 in regards to dorsiflexion, plantarflexion, inversion, and eversion in bilateral lower extremities. ? Assessment: * Assessment: 1. T inea unguium - B35.1 (Primary) 2 . A cquired keratosis [keratoderma] palmaris et plantaris - L85.1 3 . A therosclerosis of picayune arteries of extremities with intermittent claudication, bilateral legs - I70.213 4 . P ain in right foot - M79.671 5 . P ain in left foot - M79.672 Plan: * Treatment: 2. A cquired keratosis [keratoderma] palmaris et plantaris Notes: A total of 2 corns or calluses, as described in the note above, were cut and pared utilizing a #15 blade * Follow Up: 1 0 - 12 weeks (Reason: At-Risk Foot care, sooner if problems develop.) * Billing Information: * Visit Code: 51657 Office Visit, Est Pt., Level 3. * Procedure Codes: * Electronic signature of ALEXEI BARAJAS DPM on 02/14/2025 at 01:03 PM CDT Sign off status: Pending * Provider: Adilene Barajas DPM Date: 0 01/29/2025 Generated for Yenni cook/Jamal/Dalia on: 0 02/14/2025 01:03 PM CDT History and Physical Notes * HPI (History of Present Illness) Category Sub-Category Detail Notes Category Not es HPI General care Patient presents to the office for diabetic foot care. Patient states that their nails are thickened, elongated and painful. Patient states that it is aggravated by shoe gear. Onset is gradual., Patient is taking prescription blood thinners., Date last seen by Dr. Mariee was October 2024., Initials mf Examination Category Sub-Category Detail Notes Category Not es Dermatologic Skin findings: Skin is thin, at rophic and lacking pedal hair Nail pathology: Nails 1, 2, 3, 4, an d 5 bilateral are elongated, thick, discolored, and dystrophic with subungual debris. They are painful to palpation Hypertrophic / hyperkeratotic lesion: pl cindy-medial aspect of the left and right hallux Neurologic [place] 5.07 monofilamen t Intact protective sensation via 5.07 g swmf bilateral Gross sensation Grossly intact to li ght touch. There is negative Tinel's sign Vascular Dorsalis pedis pulse: 1/4 bilateral Edema: No edema bilateral Capillary refill: greater than 3 secon ds Posterior tibial pulse: 0/4 bilateral Physical Examination General appearance: Alert, pleasant, well-nourished and in no acute distress Musculoskeletal Muscle Strength Muscle strength is 5/5 in regards to dorsiflexion, plantarflexion, inversion, and eversion in bilateral lower extremities
--- OUTSIDE RECORDS SUMMARY | 2025-02-14 13:03 | XMS_ITS | Patient Health Record ---
Author Organization [facility] Billing Info Address [address] [place], [place] [address] [address] Care Team Providers Care Sports Management Intern Name Role Phone YUDI, DR CARLOS Dove Primary Care Provider BERNADETTE Dominique [phone] Allergies Allergen (clinical drug ingredient) Drug/Non Drug [...] Problem Status W/U Status Risk Notes Problem 18117460 Sprain of metacarpophalangeal joint of right thumb, initial encounter (S63.646E) Active confirmed Problem 084242938 History of falli ng (Z91.81) Active confirmed Problem 87906331 Carpal tunnel syndrome, right (G56.01) Active confirmed Problem 755857522 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) Active confirmed Problem 56943862 Type 2 diabetes mellitus without complication (E11.9) Active confirmed Problem 821376100 Trigger middle f elida of left hand (M65.332) Active confirmed Problem 75484845 Essential hypertension, hypertension with unspecified goal (I10) Active confirmed Problem 21920133 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
--- OUTSIDE RECORDS SUMMARY | 2025-02-14 13:04 | XMS_ITS | Patient Health Record ---
Author Organization [facility] Address [address] [facility] [address] [place], [place] [id number] Care Team Providers Care Container Coordinator Name Role Phone ALEXEI BARAJAS Unavailable [phone] Parker Mariee Unavailable Unavailable Allergies Allergen (clinical drug ingredient) Drug/Non Drug Allergy documented on EMR Reaction Allergy Type Onset Date Status Product containing sulfonamide (product) (uncoded) Unknown Allergy 05/12/2021 active Reason For Referral No Information Medications Medication SIG (Take, Route, Frequency, Duration) Notes Start Date End Date Status Eliquis Active Vital Signs Height-cm 167.64 cm 11/20/2024 Weight-kg 74.84 kg 11/20/2024 Height 66.00 in 11/20/2024 Weight 165 lbs 11/20/2024 BMI 26.63 kg/m2 11/20/2024 Encounters Encounter Location Date Provider Diagnosis [facility] [place] [address] [place] [id number] 01/29/2025 ALEXEI BARAJAS Tinea unguium B35.1 ; Acquired keratosis [keratoderma] palmaris et plantaris L85.1 ; Atherosclerosis of kas[place] arteries of extremities with intermittent claudication, bilateral legs I70.213 ; Pain in right foot M79.671 and Pain in left foot M79.672 [facility] [place] [address] [place] [id number] 11/20/2024 ALEXEI BARAJAS Tinea unguium B35.1 ; Acquired keratosis [keratoderma] palmaris et plantaris L85.1 ; Atherosclerosis of kas[place] arteries of extremities with intermittent claudication, bilateral legs I70.213 ; Pain in right foot M79.671 and Pain in left foot M79.672 Assessments Encounter Date Diagnosis (ICD Code) Assessment Notes Treatment Notes Treatment Clinical Notes Section Notes 11/20/2024 Tinea unguium (ICD-10 - B35.1) Nails 1-5 Bilateral were debrided extensively with nail nippers and emery board, reducing length and girth to pink healthy tissue with any subungual debris and necrotic tissue removed 11/20/2024 Acquired keratosis [keratoderma] palmaris et plantaris (ICD-10 - L85.1) A total of 2 corns or calluses, as described in the note above, were cut and pared utilizing a #15 blade 01/29/2025 Tinea unguium (ICD-10 - B35.1) Nails [...] utilizing a #15 blade 01/29/2025 Atherosclerosis of kas[place] arteries of extremities with intermittent claudication, bilateral legs (ICD-10 - I70.213) 11/20/2024 Atherosclerosis of kasaan arteries of extremities with intermittent claudication, bilateral legs (ICD-10 - I70.213) 11/20/2024 Pain in right foot (ICD-10 - M79.671) 01/29/2025 Pain in right foot (ICD-10 - M79.671) 01/29/2025 Pain in left foot (ICD-10 - M79.672) 11/20/2024 Pain in left foot (ICD-10 - M79.672) Plan Of Treatment Next Appt Details Provider Name:ALEXEI BARAJAS, 01:20:00 PM, [address], [address], [id number], Insurance Providers Payer Name Payer Address Payer Phone Subscriber Number Group Number Insured Name Patient Relationship to Insured Coverage Start Date Coverage End Date [facility] [address] [place] [address] [phone] [id number] WINNINGNARCISO Self - patient is the insured [facility] ATTN CLAIMS [address] [place] [address] [id number] WINNINGNARCISO Self - patient is the insured Medical (General) History Medical History History ICD Code acid reflux GERD Arthritis Back Trouble Diabetic
--- OUTSIDE RECORDS SUMMARY | 2025-02-14 13:04 | XMS_ITS | Continuity of Care Document ---
Author Organization [facility] Address [address] [place] [address] Phone Care Team Providers Care Bookie Name Role Phone Shay Nelson Unavailable Unavailable Procedures Procedure Date Office/outpatient Visit, Est Dilated Retinal Exam W Interpretation Au g Office/outpatient Visit, Est Dilated Retinal Exam W Interpretation Ma No Script Advance Directives Directive Yes / No Effective Date File Name No Information Encounters Encounter Description Practice Location Reason(s) For Visit Diagnoses Date Provider Providers Copied on Encounter Office/outpat ient Visit, [facility] [place], [id number] [place] [address] [address], [place], [place], [id number], [place] tel:[phone] [facility] No Information 2-201 0 Leslie Day. [facility] [address] , [address], [place], [place], [facility], [place]. tel:[phone] Office/outpat ient Visit, [facility] [place], [address], [place], [place], [id number], [place] tel:[phone] [facility] No Information 9-200 9 Tomeka Charles. [address] [facility] [address], [place], [place], [facility], [place]. tel:[phone] Family History Family Member Type Diagnosis Age At Onset No Information Payers Payer name Insurance type Covered republican ID Sarah Beth garzas) [place] [id number] [facility] [id number] Social History Type Description Quantity Date Captured [...]
== END 2025-02-14 12:58 | disposition home or self-care (01) ==
PROVIDERS: PCP Family Medicine
DX: M54.50 Low back pain, unspecified (principal)
CPT/HCPCS: 73502

== ENCOUNTER 2025-03-27 14:41 | Outpatient (CLI) | payer MEDICARE, OTHER, SELFPAY ==
[2025-03-27 15:30] LABS: Alanine Aminotransferase 9 U/L (6-35); Albumin Level 4.6 g/dL (3.5-5.1); Alkaline Phosphatase 58 U/L (38-126); Anion Gap 8 mmol/L (4-12); Aspartate Amino Transferase 24 U/L (14-36); Bilirubin,Total 0.7 mg/dL (0.2-1.3); Blood Urea Nitrogen 16 mg/dL (7-17); Calcium 9.5 mg/dL (8.4-10.2); Carbon Dioxide 29 mmol/L (22-30); Chloride 104 mmol/L (98-107); Estimated Glomerular Filt Rate 39; Glucose 109 mg/dL (65-110); Potassium 4.0 mmol/L (3.4-5.0); Sodium 141 mmol/L (137-145); Total Protein 7.7 g/dL (6.3-8.2)
[2025-03-27 16:52] LABS: Hemoglobin A1C 6.0 % (<5.7)
== END 2025-03-27 14:42 | disposition home or self-care (01) ==
LOC: ANHLAB 14:42
PROVIDERS: PCP Family Medicine; Visit Provider Family Medicine
DX: E11.29 Type 2 diabetes mellitus with other diabetic kidney complication (principal)
CPT/HCPCS: 36415; 80053; 83036

== ENCOUNTER 2025-05-28 02:23 | Day surgery (SDC) | payer MEDICARE, OTHER, SELFPAY ==
--- OUTSIDE RECORDS SUMMARY | 2025-04-02 08:20 | XMS_ITS ---
Author Organization [facility] Address [address] [facility] [address] [place], [place] [id number] Care Team Providers Care Manager Servicing Name Role Phone FRANCIEPetty ALEXEI Unavailable [phone] Parker Mariee Unavailable Unavailable Allergies Allergen (clinical drug ingredient) Drug/Non Drug Allergy documented on EMR Reaction Allergy Type Onset Date Status Product containing sulfonamide (product) (uncoded) Unknown Allergy 05/12/2021 active REASON FOR VISIT Patient presents for at-risk foot care . The patient has painful toenails that are causing difficulty with ambulation and shoegear. The onset is gradual. The patient has diabetes mellitus Medications Medication SIG (Take, Route, Frequency, Duration) Notes Start Date End Date Status Eliquis Active Vital Signs Height 66.00 in 04/02/2025 Weight 165 lbs 04/02/2025 BMI 26.63 kg/m2 04/02/2025 Height-cm 167.64 cm 04/02/2025 Weight-kg 74.84 kg 04/02/2025 Encounters Encounter Location Date Provider Diagnosis [facility] [place] [address] [place], [place] [phone] 04/02/2025 ALEXEI BARAJAS Tinea unguium B35.1 ; Pain in right toe(s) M79.674 ; Pain in left toe(s) M79.675 ; Atherosclerosis of [place] arteries of extremities with intermittent claudication, bilateral legs I70.213 and Type 2 diabetes mellitus with other circulatory complications E11.59 Assessments Encounter Date Diagnosis (ICD Code) Assessment Notes Treatment Notes Treatment Clinical Notes Section Notes 04/02/2025 Tinea unguium (ICD-10 - B35.1) NAIL DEBRIDEMENT: Nails 1-5 Bilateral were debrided extensively with nail nippers and emery board, reducing length and girth to pink healthy tissue with any subungual debris and necrotic tissue removed 04/02/2025 Pain in right toe(s) (ICD-10 - M79.674) 04/02/2025 Pain in left toe(s) (ICD-10 - M79.675) 04/02/2025 Atherosclerosis of [place] arteries of extremities with intermittent claudication, bilateral legs (ICD-10 - I70.213) 04/02/2025 Type 2 diabetes mellitus with other circulatory complications (ICD-10 - E11.59) Diabetic Foot Care: The patient was educated on diabetes and the lower extremity. The patient was instructed to check his feet daily to report any problems or signs of infection immediately. The patient was provided written information on Diabetic Foot Care as well as the Amputation Prevention Guide. Plan Of Treatment Treatment Notes Assessment Notes Tinea unguium NAIL DEBRIDEMENT: Na ils 1-5 Bilateral were debrided extensively with nail nippers and emery board, reducing length and girth to pink healthy tissue with any subungual debris and necrotic tissue removed Type 2 diabetes mellitus wit h other circulatory complications Diabetic Foot Care: The patient was educated on diabetes and the lower extremity. The patient was instructed to check his feet daily to report any problems or signs of infection immediately. The patient was provided written information on Diabetic Foot Care as well as the Amputation Prevention Guide. Next Appt Details Follow Up: 10 - 12 weeks, Re ason: At-Risk Foot care, sooner if problems develop. Provider Name:ALEXEI BARAJAS, 04:20:00 PM, [address], [address], [id number], Progress Notes * NARCISO BLACKWOOD LDOB:[birth year] (84 yo F)Acc No.[id number]:04/02/2025 Patient: NARCISO JIMENEZ Provider: Adilene Barajas DPM :1940 A ge:84 Y S ex:Female Date:04/02/2025 Address:[facility] [address], [facility] Subjective: * Chief Complaints: * 1 . Patient presents for at-risk foot care . The patient has painful toenails that are causing difficulty with ambulation and shoegear. The onset is gradual. The patient has diabetes mellitus. * HPI: H PI: General care P noel presents to the office for diabetic foot care. Patient states that their nails are thickened, elongated and painful. Patient states that it is aggravated by shoe gear. Onset is gradual., Patient is taking prescription blood thinners., Date last seen by Dr. Mariee was March 2025., Initials ab. * ROS: G eneral / Constitutional: Patient [...] , Smoking Status : Former tobacco user. * Medications: Isrrael Holloway , Medication List reviewed and reconciled with the patient * Allergies: P roduct containing sulfonamide (product): Allergy - Onset Date 05/12/2021. Objective: * Vitals: S hoe Size: 8.5, Wt: 165 lbs, Wt-k.84 kg, Ht: 66.00 in, Ht-cm: 167.64 cm, BMI: 26.63 Index, Body Surface Area: 1.86. * Examination: P hysical Examination: General appearance: A lert, pleasant, well-nourished and in no acute distress. D ermatologic: Skin findings: S kin is thin, atrophic and lacking pedal hair. Nail pathology: N ails 1, 2, 3, 4, and 5 bilateral are elongated, thick, discolored, and dystrophic with subungual debris. They are painful to palpation. ? V ascular: Dorsalis pedis pulse: 1 /4 b ilateral. Posterior tibial pulse: 0 /4 bilateral. Capillary refill: g reater than 3 seconds. Edema: N o edema bilateral. N eurologic: Gross sensation G rossly intact to light touch. There is negative Tinel's sign. M usculoskeletal: Muscle Strength M uscle strength is 5/5 in regards to dorsiflexion, plantarflexion, inversion, and eversion in bilateral lower extremities. ? Assessment: * Assessment: 1. T inea unguium - B35.1 (Primary) 2 . P ain in right toe(s) - M79.674? 3. P ain in left toe(s) - M79.675 4 . A therosclerosis of paskenta arteries of extremities with intermittent claudication, bilateral legs - I70.213 5 . T ype 2 diabetes mellitus with other circulatory complications - E11.59 Plan: * Treatment: 2. T ype 2 diabetes mellitus with other circulatory complications Notes: Diabetic Foot Care: The patient was educated on diabetes and the lower extremity. The patient was instructed to check his feet daily to report any problems or signs of infection immediately. The patient was provided written information on Diabetic Foot Care as well as the Amputation Prevention Guide. * Preventive Medicine: Screenings: F all risk screening F all Risk Assessment: N o falls in the past year. * Follow Up: 1 0 - 12 weeks (Reason: At-Risk Foot care, sooner if problems develop.) * Billing Information: * Visit Code: 07867 Office Visit, Est Pt., Level 3. * Procedure Codes: * Electronic signature of ALEXEI BARAJAS DPM on 05/28/2025 at 02:29 AM CDT Sign off status: Pending * Provider: Adilene Barajas DPM Date: 0 04/02/2025 Generated for Yenni cook/Jamal/Dalia on: 1 02:29 AM CDT History and Physical Notes * HPI [...] Date last seen by Dr. Mariee was March 2025., Initials ab Examination Category Sub-Category Detail Notes Category Not es Dermatologic Skin findings: Skin is thin, at rophic and lacking pedal hair Nail pathology: Nails 1, 2, 3, 4, an d 5 bilateral are elongated, thick, discolored, and dystrophic with subungual debris. They are painful to palpation Neurologic Gross sensation Grossly intact t o light touch. There is negative Tinel's sign Vascular [...]
--- NOTE | 2025-05-21 09:27 | PC.NURSE ---
Addendum entered by Linda Massey RN 05/22/25 11:37: Pt states she was told to hold Eliquis 3 days prior to surgery. Original Note: [facility] has started construction of its new state of the art ER which will open Spring 2026. With this, we anticipate parking may be a challenge for some our surgical patients and families. Parking spaces are limited but are available for all Surgical, obstetrics, and ER patients sharing this lot. If you arrive and find you are having a hard time finding a parking space, please note that we understand the challenges, please drive around the hospital and park near Hospital Entrance 1. When you enter this entrance, you can ask a volunteer to direct or take you back to the surgical waiting area to check in. We appreciate everyone?s understanding of these expected challenges while we build for your future. Report to the Outpatient Waiting Room, entrance under the green pavilion located off [address], at time 1200 noon on date __05/28/25 . Planned Procedure Time: _1 PM .? Time changes happen often and if your time is changed the preop area will call you the afternoon before. - You and your visitor will be asked to self-screen and do not enter if you have any COVID symptoms. Please call surgeon if you need to reschedule. - A mask is optional within the hospital at this time. MAY HAVE LIGHT BREAKFAST/LUNCH DAY OF SURGERY PER DR ORTIZ NOTHING TO EAT OR DRINK 2 HOURS PRIOR TO SURGERY PER DR ORTIZ Take only the following medications with a SIP of water on the morning of surgery: ___TAKE ROUTINE _MEDICATION DO NOT STOP ANY OF YOUR OTHER PRESCRIPTION MEDICATIONS PRIOR TO SURGERY EXCEPT THE FOLLOWING Hold all vitamins and supplements for 3 days per anesthesiologist. Medications to discontinue per physician Date to take last dose Please no make-up, nail icelandic, hairspray, perfume, deodorant, or body powder the day of surgery.? No jewelry (including any body piercings) or valuables the day of surgery, leave them at home.? Please take a shower or bath the night before, AND the morning of, surgery with an antibacterial soap.? Wear comfortable, loose fitting clothing.? Children are encouraged to wear pajamas. - Jewelry must be removed prior to entering the operating room.? Rings and piercings that are not removed may be cut off. - The hospital will not accept responsibility for valuables.? - Please leave all valuables, including medications, at home the day of surgery. If you are going home after surgery, a licensed bull driver must drive you home.? - NO public transportation without another adult if you receive anesthesia. - We recommend that an adult stay with you for 24 hours following discharge. - We also recommend that you do not drive, make important decision, drink alcoholic beverages, or take any drugs that were not prescribed by your health care provider for at least 24 hours after your discharge time. DO NOT DRIVE 24 HOURS AFTER PROCEDURE PER DR ORTIZ Follow any additional instructions given to you from your surgeon. Telephone instructions given to __PATIENT and asked if any additional questions and then verbalized understanding. Patient advised to call surgeon office or pre surgery nurse liaison [phone] if any additional questions.
[2025-05-21 09:51] VITALS: BMI 26.6
--- NOTE | ~2025-05-28 | XR_ITS ---
XR fluoroscopy no charge Indication: Bilateral nerve blocks at T12-L1, L1-2 and L2-3. TECHNIQUE: Fluoroscopy used during Bilateral nerve blocks at T12-L1, L1-2 and L2-3. performed by [Mckinley Torrez MD] on 05/28/2025. 37 seconds of fluoroscopy time with 12 fluoroscopic images captured. FINDINGS: Correlate with procedure note. IMPRESSION: Fluoroscopy used during Bilateral nerve blocks at T12-L1, L1-2 and L2-3.. Reviewed, dictated and finalized at location O.
--- OUTSIDE RECORDS SUMMARY | 2025-05-28 02:30 | XMS_ITS | Clinical Summary ---
Author Organization [facility] Address [facility] [place] [address] Care Team Providers Care Financial Assistance Advisor Name Role Phone Parker Mariee MD Primary Care Provider [phone] Allergies Active Allergy Reactions Criticality Noted Date [...] Sex Assigned at Female 09/15/2024 8:13 PM DISBURSING AGENT Legal Sex Female 10:40 AM CDT Gender Identity Not on file Sexual Orientation Not on file Last Filed Vital Signs Vital Sign Reading Time Taken Comments Blood Pressure 166/79 09/15/2024 9:13 PM DISBURSING AGENT Pulse 90 09/15/2024 9:13 PM DISBURSING AGENT Temperature 36.8 C (98.2 F) 09/15/2024 9:13 PM DISBURSING AGENT Respiratory Rate 18 09/15/2024 9:13 PM DISBURSING AGENT Oxygen Saturation 96% 09/15/2024 9:13 PM DISBURSING AGENT Inhaled Oxygen Concentration - - Weight - [...] series) 2014 COVID-19 Vaccine (2023-2 5 season) 2025 Influenza Adult (#1) 2025 Meningococcal B Vaccine Aged Out No l onger eligible based on patient's age to complete this topic Meningococcal Vaccine Aged Out No luan christopher eligible based on patient's age to complete this topic RSV Immunizations Under 20 Months Aged Out No longer eligible based on patient's age to complete this topic Insurance [facility] MEDICARE Care Teams Financial Assistance Advisor Relationship Specialty Start Date End Date Parker Mariee MD [address] [place] [address] PCP - General FAMILY PRACTICE 02/08/18
--- OUTSIDE RECORDS SUMMARY | 2025-05-28 02:30 | XMS_ITS | Clinical Summary ---
Author Organization [facility] Address [address] [place] [address] Care Team Providers Care Maintenance Mechanic Technician Name Role Phone Parker Mariee MD Primary Care Provider Allergies Active Allergy Reactions Criticality Noted Date Comments Sulfabenzamide Rash Medium 10/14/2016 Medications Eliquis 5 mg tablet Take 1 tablet (5 mg total) by mouth 2 (two) times a day 5 Active atorvastatin (LIPITOR) 40 mg tablet Take 1 tablet (40 mg total) by mouth daily Active losartan (COZAAR) 100 mg tablet Take 1 tablet (100 mg total) by mouth daily Active omeprazole (PriLOSEC) 20 mg capsule Take 1 capsule (20 mg total) by mouth daily Active zolpidem (AMBIEN) 10 mg tablet as needed 0 5 Active traMADoL (ULTRAM) 50 mg tablet Take 1 tablet (50 mg total) by mouth as needed for pain Active sertraline (ZOLOFT) 100 mg tablet Take 1 tablet (100 mg total) by mouth daily Active amLODIPine (NORVASC) 2.5 mg tablet Take 1 tablet (2.5 mg total) by mouth daily Active fluticasone-ume clidin-vilanter (TRELEGY ELLIPTA) 100-62.5-25 mcg inhaler Inhale 1 puff daily Active linaGLIPtin (TRADJENTA) 5 mg tabletIndicatio ns:type 2 diabetes mellitus 1 tablet (5 mg total) Active DILT-XR 180 mg 24 hr capsule Take 1 capsule (180 mg total) by mouth every morning 05/18/20 Discontinue d(Alternate therapy) aspirin 81 mg enteric coated tablet Take 1 tablet (81 mg total) by mouth daily 05/18/20 Discontinue d(Alternate therapy) clonazePAM (KlonoPIN) 0.5 mg tablet 0 05/18/20 Discontinue d(No longer taking - Do not display on AVS) SITagliptin phosphate (JANUVIA) 100 mg tablet Take 1 tablet (100 mg total) by mouth daily 05/18/20 Discontinue d(Patient Reported) Active Problems No known active problems Encounters Date Type Department Care Team Description 05/21/2025 Orders Only [facility] Cardiology [address] [place] [address] [address] [place] [phone] Provider, MD Murphy 05/18/2025 10:30 AM CDT Office Visit [facility] Cardiology [address] [place] [address] [address] [place] [phone] Jeanette Duffy NP Paroxysmal atrial flutter (HCC) (Primary Dx); Encounter for anticoagulation discussion and counseling 05/18/2025 Telephone [facility] Cardiology [address] [facility] [address] [place] [phone] Annmarie Orozco MA Request for lab results from Last 3 Months Social History Tobacco Use Types Packs/Day Years Used Date Smoking Tobacco: Never Tobacco Cessation:Counseling Given: Not Answered Comments Unknown Sex and Gender Information Value Date Recorded Sex Assigned at Not on file Legal Sex Female 10:56 AM VEGETABLE VENDOR Gender Identity Not on file Sexual Orientation Not on file Obstetrics History Last Filed Vital Signs Vital Sign Reading Time Taken Comments Blood Pressure 132/70 05/18/2025 10:21 AM CDT Pulse 78 05/18/2025 10:21 AM CDT Temperature 36.1 C (97 F) 03/21/2020 8:41 AM CDT Respiratory Rate - - Oxygen Saturation 98% 05/18/2025 10:21 AM CDT Inhaled Oxygen Concentration - - Weight 75.5 kg (166 lb 6.4 oz) 05/18/2025 10:21 AM CDT Height 167.6 cm (5' 6) 05/18/2025 10:21 AM CDT Body Mass Index 26.86 05/18/2025 10:21 AM CDT Plan of Treatment Health Maintenance Due Date Last Done Comments Depression Screening 1940 Fall Risk Assessment 1940 Osteoporosis Screening-Bone Density Scan 1940 DTaP/Tdap/Td Vaccine (1 - Tdap) 1950 Hepatitis B Screening 1957 Zoster Vaccine (1 of 2) 1989 Well Visit 65+ 2004 Pneumococcal vaccine 65+ (2 of 2 - PCV20 or PCV21) 05/15/2019 05/15/2018 Influenza Vaccine (#1) 2025 , 04/04/2019, 05/15/2018, Additional history exists Procedures Procedure Name Priority Date/Time Associated Diagnosis Comments CMP Routine 03/27/2025 12:05 PM CDT from Last 3 Months Results * CMP (03/27/2025 12:05 PM CDT) Historical Provider LAB BLOOD ORDERABLES Farheen castillo Result from Last 3 Months Insurance [employer] PPO Member Subscriber Plan / Payer (Ef fective 2023-Present) Name:Leighann Calvillo Cinthia Relation to Subscriber:Self Name:Leighann Calvillo Cinthia Payer ID:[id number] (NAIC) Type:MEDICARE RISK OTHER Address: [address] [place] [address] [employer] PPO [address] [place] [address] Care Teams Maintenance Mechanic Technician Relationship Specialty Start Date End Date Parker Mariee MD [address] [facility] [address] [place] [address] PCP - General 02/16/14
--- OUTSIDE RECORDS SUMMARY | 2025-05-28 02:30 | XMS_ITS | Encounter Summary ---
Author Organization [facility] Address [address] [place] [address] Care Team Providers Care Core Maker Helper Name Role Phone Parker Mariee MD Primary Care Provider Encounter Details Date Type Department Care Team (Late st Contact Info) Description 10/18/2024 Orders Only [facility] Health Information Management [address] [place] [address] Scanning, Provider Social History Tobacco Use Types Packs/Day Years Used Date Smoking Tobacco: Never Comments Unknown Sex and Gender Information Value Date Recorded Sex Assigned at Not on file Legal Sex Female 10:56 AM GROUNDS PERSON Gender Identity Not on file Sexual Orientation Not on file documented as of this encounter Plan of Treatment Not on file documented as of this encounter Procedures Procedure Name Priority Date/Time Associated Diagnosis Comments SCAN - RADIOLOGY/IMAGING 10/18/2024 documented in this encounter Results * SCAN - RADIOLOGY/IMAGING (10/18/2024) Anatomical Region Laterality Modality Other us Provider Scanning Final Result documented in this encounter Visit Diagnoses Not on filedocumented in this encounter Care Teams Core Maker Helper Relationship Specialty Start Date End Date Parker Mariee MD [address] [facility] [address] [place], [place] [id number] PCP - General 02/16/14 documented as of this encounter
--- OUTSIDE RECORDS SUMMARY | 2025-05-28 02:30 | XMS_ITS | Patient Health Record ---
Author Organization [facility] Billing Info Address [address] [place], [place] [address]johanny [place] [address] Care Team Providers Care Eyedotter Name Role Phone YUDI, DR CARLOS Dove Primary Care Provider BERNADETTE Dominique [phone] Allergies Allergen (clinical drug ingredient) Drug/Non Drug [...] Problem Status W/U Status Risk Notes Problem 79155121 Sprain of metacarpophalangeal joint of right thumb, initial encounter (S63.649L) Active confirmed Problem 284975005 History of falli ng (Z91.81) Active confirmed Problem 54973004 Carpal tunnel syndrome, right (G56.01) Active confirmed Problem 919969543 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) Active confirmed Problem 37353619 Type 2 diabetes mellitus without complication (E11.9) Active confirmed Problem 492732923 Trigger middle f elida of left hand (M65.332) Active confirmed Problem 11665940 Essential hypertension, hypertension with unspecified goal (I10) Active confirmed Problem 95446890 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
--- OUTSIDE RECORDS SUMMARY | 2025-05-28 02:31 | XMS_ITS | Patient Health Record ---
Author Organization [facility] Address [address] [facility] [address] [place], [place] [id number] Care Team Providers Care Linen Controller Name Role Phone ALEXEI BARAJAS Unavailable [phone] Parker Mariee Unavailable Unavailable Allergies Allergen (clinical drug ingredient) Drug/Non Drug Allergy documented on EMR Reaction Allergy Type Onset Date Status Product containing sulfonamide (product) (uncoded) Unknown Allergy 05/12/2021 active Reason For Referral No Information Medications Medication SIG (Take, Route, Frequency, Duration) Notes Start Date End Date Status Eliquis Active Vital Signs Height-cm 167.64 cm 04/02/2025 Weight-kg 74.84 kg 04/02/2025 Height 66.00 in 04/02/2025 Weight 165 lbs 04/02/2025 BMI 26.63 kg/m2 04/02/2025 Encounters Encounter Location Date Provider Diagnosis [facility] [address] [place] [address] [id number] 04/02/2025 ALEXEI KARL Tinea unguium B35.1 ; Pain in right toe(s) M79.674 ; Pain in left toe(s) M79.675 ; Atherosclerosis of [place] arteries of extremities with intermittent claudication, bilateral legs I70.213 and Type 2 diabetes mellitus with other circulatory complications E11.59 [facility] [address] [place] [address] [id number] 11/20/2024 ALEXEI BARAJAS Tinea unguium B35.1 ; Acquired keratosis [keratoderma] palmaris et plantaris L85.1 ; Atherosclerosis of [place] arteries of extremities with intermittent claudication, bilateral legs I70.213 ; Pain in right foot M79.671 and Pain in left foot M79.672 [facility] [address] [place] [address] [id number] 01/29/2025 ALEXEI BARAJAS Tinea unguium B35.1 ; Acquired keratosis [keratoderma] palmaris et plantaris L85.1 ; Atherosclerosis of [place] arteries of extremities with intermittent claudication, bilateral [...] cut and pared utilizing a #15 blade 04/02/2025 Tinea unguium (ICD-10 - B35.1) NAIL DEBRIDEMENT: Nails 1-5 Bilateral were debrided extensively with nail nippers and emery board, reducing length and girth to pink healthy tissue with any subungual debris and necrotic tissue removed 04/02/2025 Pain in right toe(s) (ICD-10 - M79.674) 01/29/2025 Atherosclerosis of [place] arteries of extremities with intermittent claudication, bilateral legs (ICD-10 - I70.213) 11/20/2024 Atherosclerosis of [place] arteries of extremities with intermittent claudication, bilateral legs (ICD-10 - I70.213) 11/20/2024 Pain in right foot (ICD-10 - M79.671) 01/29/2025 Pain in right foot (ICD-10 - M79.671) 04/02/2025 Pain in left toe(s) (ICD-10 - M79.675) 04/02/2025 Atherosclerosis of [place] arteries of extremities with intermittent claudication, bilateral legs (ICD-10 - I70.213) 01/29/2025 Pain in left foot (ICD-10 - M79.672) 11/20/2024 Pain in left foot (ICD-10 - M79.672) 04/02/2025 Type 2 diabetes mellitus with other circulatory complications (ICD-10 - E11.59) Diabetic Foot Care: The patient was educated on diabetes and the lower extremity. The patient was instructed to check his feet daily to report any problems or signs of infection immediately. The patient was provided written information on Diabetic Foot Care as well as the Amputation Prevention Guide. Plan Of Treatment Next Appt Details Provider Name:ALEXEI BARAJAS, 04:20:00 PM, [address] [place], [place], [place], [phone], Insurance Providers Payer Name Payer Address Payer Phone Subscriber Number Group Number Insured Name Patient Relationship to Insured Coverage Start Date Coverage End Date [address] [place] [address] [id number] BLACKWOODA Self - patient is the insured [facility] ATTN CLAIMS [address] [place] [address] [id number] NARCISO BLACKWOOD Self - patient is the insured Medical (General) History Medical History History ICD Code acid reflux GERD Arthritis Back Trouble Diabetic
[2025-05-28 11:50] VITALS: BP 124/59; PULSE 81; RESP 18; TEMP 36.6; O2SAT 98; BMI 27.3
--- NOTE | 2025-05-28 12:23 | PM.HPGS ---
History of Present Illness History of Present Illness Consent: Risks, benefits, and alternatives have been discussed and questions answered. Patient agrees to proceed with procedure. Chief complaint: spondylosis lumbar region, chronic low back pain Narrative: Leighann Calvillo is a 84 year old female with chronic, recalcitrant and disabling bilateral thoracolumbar back pain secondary to degenerative spondylosis with failure to respond to aggressive conservative measures including PT, oral and topical analgesics, opioid and nonopioid analgesics, rest, time and activity/behavioral modification over the past 1-2 years who presents for diagnostic/prognostic medial branch blocks of the bilateral T12, L1, L2 medial branches(#1) addressing the bilateral L1-L2, L2-L3 facet joints under fluoroscopic guidance and with contrast control. Review of Systems Review of Systems: All systems reviewed & are unremarkable except as noted in HPI and below PMFSH Past Medical History Medical History (Updated 05/28/25 @ 12:25 by Mckinley Torrez MD) Dorsalgia Atrial flutter Hypertension Chronic obstructive pulmonary disease Type 2 diabetes mellitus Hyperlipidemia Anxiety Tremor Pulmonary emphysema Lumbar spondylosis Insomnia Primary osteoarthritis, unspecified site Chronic kidney disease, stage III (moderate) Chronic GERD Surgical History Surgical History History of hysterectomy History of tonsillectomy History of cataract extraction History of Descemet membrane endothelial keratoplasty (DMEK) OS Family History Family History Father Family history of malignant neoplasm of stomach Family history of diabetes mellitus in first degree relative Mother Family history of malignant neoplasm of ovary Social History Social History (Updated 04/12/25 @ 13:37 by Franny Matthews MA) Social History: Surrogate medical decision maker: Debbie Hayden, daughter. Code status: Full code. Smoking packs per day: 1 Smoking cigarettes per day: 20.0 Years smoked: 30 Smoking pack-years: 30.00 Smoking status: Former smoker Tobacco type: cigarettes Second hand tobacco smoke exposure: No Smoking end date: 08/09/04 Alcohol intake: never Substance use: never Substance use type: does not use Do You Feel Safe in your Home?: Yes Lack of Transportation: No Lack of Food: Never True Current Housing: I Have Housing Concerned About Future Housing: No Difficulty Paying Gas/Electric Bills: No Difficulty Paying for Meds: No Currently Unemployed: No Education: High School Diploma/GED Difficulty w/ Childcare or Family Care: No Living arrangements: alone Additional living arrangements comments: Assisted living at [facility] in [place]. She has a small dog. 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 Spiritual care concerns: No Meds Home Medications and Allergies Home Medications ?Medication ?Instructions ?Recorded ?Confirmed ?Type tramadol 50 mg tablet 50 mg PO BID PRN pain #60 tabs 01/19/24 05/21/25 Rx prednisolone acetate 1 % eye 1 drp LEFT EYE DAILY 10/19/24 05/21/25 History drops,suspension apixaban 5 mg tablet (Eliquis) 5 mg PO Q12HR #180 tabs 10/30/24 05/21/25 Rx atorvastatin 40 mg tablet 40 mg PO DAILY #90 tabs 10/30/24 05/21/25 Rx fluticasone fur. 100 mcg-umeclid 1 inh inhalation DAILY #180 ea 10/30/24 05/21/25 Rx 62.5 mcg-vilant 25 mcg inhalat.powder (Trelegy Ellipta) losartan 100 mg tablet 100 mg PO DAILY #90 tabs 10/30/24 05/21/25 Rx omeprazole 20 mg tablet,delayed 20 mg PO DAILY #90 tabs 10/30/24 05/21/25 Rx release sertraline 100 mg tablet 100 mg PO DAILY #90 tabs 10/30/24 05/21/25 Rx linagliptin 5 mg tablet 5 mg PO QAM #90 tabs 11/13/24 05/21/25 Rx diltiazem HCl 180 mg 180 mg PO QAM #90 caps 12/06/24 05/21/25 Rx capsule,extended release 24 hr, controlled amlodipine 2.5 mg tablet 2.5 mg PO DAILY #90 tabs 02/08/25 05/21/25 Rx terbinafine HCl 250 mg tablet 250 mg PO DAILY #90 tabs 02/12/25 05/21/25 Rx clonazepam 0.5 mg tablet 0.5 mg PO QHS #90 tabs 02/27/25 05/21/25 Rx zolpidem 10 mg tablet 10 mg PO QHS PRN insomnia #30 tabs 05/14/25 05/21/25 Rx Allergies Allergy/AdvReac Type Severity Reaction Status Date / Time Sulfa (Sulfonamide Allergy Unknown Unknown Verified 05/21/25 09:26 Antibiotics) sulfanilamide Allergy Unknown Unknown Verified 05/21/25 09:26 Exam Narrative: The patient's physical exam is essentially unchanged from prior examination on 04/12/2025. Specifically, patient demonstrates normal lung capacity, tidal volume and respiratory rate without wheezes, crackles, rales or rubs. Heart rate and rhythm are regular without murmurs, gallops or rubs. No JVD. Pulses 2+ globally without increasing peripheral edema. AAOx3 with no evidence of confusion, intoxication or altered mental state, NC/AT without acute distress or altered consciousness. Speech, cognition, mood, insight and judgment at baseline and within normal limits. Assessment and Plan Assessment and plan (1) Lumbar spondylosis: Code(s): M47.816 - Spondylosis without myelopathy or radiculopathy, lumbar region Status: Acute Assessment and Plan: Proceed as planned with diagnostic/prognostic medial branch blocks of the bilateral T12, L1, L2 medial branches(#1) addressing the bilateral L1-L2, L2-L3 facet joints under fluoroscopic guidance and with contrast control. (2) Dorsalgia: Code(s): M54.9 - Dorsalgia, unspecified Status: Acute (3) Chronic pain: Code(s): G89.29 - Other chronic pain Status: Acute
--- NOTE | 2025-05-28 12:26 | WPDHPUPDATE1 ---
History and Physical Update Update Date/Time: 05/28/25 12:26 History and Physical has been reviewed, including an updated exam of the patient. There are NO changes in the patient's condition. Risks, benefits, and alternatives have been discussed and questions answered. Patient agrees to proceed with procedure.
--- NOTE | 2025-05-28 12:27 | P.OP_ITS ---
Procedure Note - Detailed Date of Procedure 05/28/25 Pre-op Diagnosis spondylosis lumbar region, chronic low back pain Post-op Diagnosis Same Procedure Performed Diagnostic bilateral Lumbar Medial Branch Blocks at T12, L1, L2 Treating the bilateral L1-2, L2-3 Facet Joints Under Fluoroscopic Guidance and with Contrast Control. (4 levels blocked). Surgeon Mckinley Torrez MD Circus Laborer None. Anesthesia Local Description of Procedure INFORMED CONSENT: Risks, benefits and alternatives to the procedure were discussed in detail with the patient who expressed explicit understanding and consent to proceed. Patient was informed verbally and in written form regarding the risks associated with the procedure including the low risk of serious infection, bleeding/bruising, allergic reaction, nerve or organ injury, paralysis, procedural site pain or discomfort, worsening pain and/or mobility, failure to treat and/or disfigurement. The patient expressed explicit understanding and consent to proceed. All materials required for the procedure were available prior to procedure start. Site and side were marked prior to procedure and confirmed in the presence of the patient. PROCEDURE IN DETAIL: The patient was brought to the procedural suite and placed in the prone position. Patient was made comfortable with use of pillows under the head/chest, hips and ankles. Skin overlying the injection site on the affected side(s) was prepared broadly with ChloraPrep applicator and draped in a sterile manner. Aseptic technique was used throughout. The endplates of the vertebral bodies at the site(s) of interest were aligned in the AP view. Ipsilateral oblique angulation was utilized to optimize visualization of the intersection between the superior articulating process and transverse process at each target site. Local anesthesia was established by infiltration with approximately 5 mL of 1% lidocaine via a 1-1/2 inch 27-gauge needle. A 25-gauge 3.5 inch Quincke spinal needle was advanced until the needle tip contacted periosteum at the target site, right T12. Lateral view was utilized to confirm the appropriate placement of the needle tip just anterior to the facet line and superior to the pedicle. In the Lateral view, 0.25 mL of Omnipaque 300 contrast medium was injected after negative aspiration for CSF, blood or other bodily fluid, showing appropriate extra-articular spread of contrast without evidence of intravascular, foraminal or intrathecal placement. A 0.5 mL solution of 0.5% PF bupivacaine was injected after negative repeat aspiration. Appropriate spread of the injectate was confirmed with washout of previously injected contrast. No parasthesias were elicited. Needle was removed completely intact without difficulty. The same exact procedure was repeated for all remaining levels on the ipsilateral side, right L1, L2 medial branch, modified as necessary to accommodate for the new target location with identical findings and results and no evidence of complication. The same exact procedure was repeated for all remaining levels on the contralateral side, left T12, L1, L2 medial branches, modified as necessary to accommodate for the new target location with identical findings and results and no evidence of complication. Images were saved and documented in the patient chart. Patient's skin was cleaned and sterile bandage applied. The patient tolerated the procedure well. The patient was transported to the recovery area in stable condition where they were observed for an appropriate amount of time prior to discharge, without evidence of complication. Patient was instructed on the appropriate completion of a pain diary over the next 12-24 hours. The patient was instructed to avoid excessive activity for the next 48 hours, including climbing and frequent use of stairs. Showers only for 48 hours. They were instructed not to drive or operate heavy machinery for 24 hours. They are to monitor for severe headaches, fevers, chills, night sweats, erythema/swelling at the site or any other signs of infection, blee ding/bruising, bowel or bladder changes as well as new pain, weakness or numbness in the upper or lower extremity. Should they notice these changes, they are instructed to call our office immediately or report directly to the nearest Emergency Department if no answer or if after posted office hours. COMPLICATIONS: None COMMENTS: None CONTRAST WASTED: 28.5mL Omnipaque 300. Complications No immediate complications Condition Stable Disposition Same day [facility] Billing Surgery - Charge Forward: Surgery Billing
[2025-05-28 12:58] VITALS: BP 142/102; PULSE 79; RESP 16; O2SAT 95
[2025-05-28 13:11] VITALS: BP 168/64; PULSE 69; RESP 20; O2SAT 95
[2025-05-28] MEDS: LIDOCAINE 1% PF INJ 5 ML VIAL 8 ML INFILTRATE (13:12)
[2025-05-28 13:16] VITALS: BP 142/60; PULSE 70; RESP 16; O2SAT 95
== END 2025-05-28 13:36 | disposition home or self-care (01) ==
PROVIDERS: PCP Family Medicine; Visit Provider Anesthesiology Pain Medicine
PROC: (CPT 64493; principal; 2025-05-28 13:00)
DX: M47.816 Spondylosis without myelopathy or radiculopathy, lumbar region (principal); G89.29 Other chronic pain; E78.5 Hyperlipidemia, unspecified; E11.22 Type 2 diabetes mellitus with diabetic chronic kidney disease; I12.9 Hypertensive chronic kidney disease with stage 1 through stage 4 chronic kidney disease, or unspecified chronic kidney disease; N18.30 Chronic kidney disease, stage 3 unspecified; J43.9 Emphysema, unspecified; K21.9 Gastro-esophageal reflux disease without esophagitis; I48.92 Unspecified atrial flutter; F41.9 Anxiety disorder, unspecified; R25.1 Tremor, unspecified; G47.00 Insomnia, unspecified; M19.91 Primary osteoarthritis, unspecified site; Z79.891 Long term (current) use of opiate analgesic; Z79.01 Long term (current) use of anticoagulants; Z79.51 Long term (current) use of inhaled steroids; Z98.890 Other specified postprocedural states; Z87.891 Personal history of nicotine dependence; Z80.0 Family history of malignant neoplasm of digestive organs; Z80.41 Family history of malignant neoplasm of ovary
CPT/HCPCS: 64493; 64494 ×2; 64495 ×2; 99199; J2003; Q9965